=== PATIENT | female | born 1935 | race Caucasian/White ===

== ENCOUNTER → 2016-10-08 | Outpatient (REF) | payer MEDICARE ==
[2016-10-08 19:17] LABS: PERCENT SATURATION 19.5 % (13.2-37.4)
== END ==
LOC: M LAB REF 16:21
PROVIDERS: ATTEND Internal Medicine
DX: D50.9 Iron deficiency anemia, unspecified (principal)

== ENCOUNTER → 2017-03-08 | Outpatient (REF) | payer MEDICARE | LOC: M LAB REF 16:34 | PROVIDERS: ATTEND Internal Medicine | DX: R19.5 Other fecal abnormalities (principal) ==

== ENCOUNTER 2017-08-13 14:46 | Emergency (ER) | payer MEDICAID, MEDICARE ==
[~2017-08-13] VITALS: Ht 157.5 cm; Wt 63.6 kg
[2017-08-13] MEDS ORDERED: LEVO25TA5 (14:53)
[2017-08-13] MEDS ORDERED: AMLO5TAB2 (14:53)
[2017-08-13] MEDS ORDERED: ASPI81TA85 PO (14:53)
[2017-08-13] MEDS ORDERED: [UNRECOGNIZED DRUG - CODE] (14:53)
--- NOTE | 2017-08-13 15:33 | REP ---
Clinical: Trauma. Technique: AP, lateral, bilateral oblique and sunrise views of the right knee. Findings: Age-related osteopenia and tricompartmental degenerative changes are appreciated. No acute fracture or dislocation identified. Anterior and prepatellar soft tissue swelling likely related to trauma. Impression: Anterior/prepatellar soft tissue swelling. No acute fracture dislocation. Signed by Alexy Meadows MD 08/13/2017 03:24 P
[2017-08-13 18:13] VITALS: BP 164/80
== END 2017-08-13 18:14 | disposition home or self-care (01) ==
LOC: M ED 14:46
DX: S80.01XA Contusion of right knee, initial encounter (principal); W01.198A Fall on same level from slipping, tripping and stumbling with subsequent striking against other object, initial encounter; Y92.410 Unspecified street and highway as the place of occurrence of the external cause; Y93.01 Activity, walking, marching and hiking; Y99.9 Unspecified external cause status

== ENCOUNTER → 2017-10-15 | Outpatient (REF) | payer MEDICARE ==
[2017-10-15 14:05] LABS: IRON (FE) 57 UG/DL (50-170); PERCENT SATURATION 20.8 % (13.2-45.0); TOTAL IRON BINDING CAPACITY 274 UG/DL (250-450)
== END ==
LOC: M LAB REF 12:13
DX: D50.9 Iron deficiency anemia, unspecified (principal)
CPT/HCPCS: 83550

== ENCOUNTER → 2018-07-04 | Outpatient (REF) | payer MEDICARE ==
[2018-07-04 18:03] LABS: FERRITIN 25 NG/ML (8-252); IRON (FE) 48 UG/DL (50-170); PERCENT SATURATION 17.5 % (13.2-45.0); TOTAL IRON BINDING CAPACITY 275 UG/DL (250-450)
== END ==
LOC: M LAB REF 16:25
DX: D50.9 Iron deficiency anemia, unspecified (principal)
CPT/HCPCS: 83550

== ENCOUNTER 2018-09-17 10:32 | Emergency (ER) | payer MEDICARE ==
[~2018-09-17] VITALS: Ht 157.5 cm; Wt 57.0 kg
[~2018-09-17 10:32] MED LIST: AMLO5TAB6; ASPI81TA85 PO; LEVO25TA5; [UNRECOGNIZED DRUG - CODE]
[2018-09-17 11:10] VITALS: BP 170/78
== END 2018-09-17 11:29 | disposition home or self-care (01) ==
LOC: M ED 10:32
DX: J04.0 Acute laryngitis (principal); I10 Essential (primary) hypertension; E03.9 Hypothyroidism, unspecified; Z88.0 Allergy status to penicillin; Z79.899 Other long term (current) drug therapy; Z79.82 Long term (current) use of aspirin

== ENCOUNTER → 2018-12-09 | Outpatient (REF) | payer MEDICARE ==
[2018-12-09 18:44] LABS: PERCENT SATURATION 13.6 % (13.2-45.0)
== END ==
LOC: M LAB REF 16:38
PROVIDERS: ATTEND Internal Medicine
DX: D50.9 Iron deficiency anemia, unspecified (principal)

== ENCOUNTER → 2019-01-22 | Outpatient (REF) | payer MEDICARE ==
[2019-01-22 13:47] LABS: PERCENT SATURATION 21.2 % (13.2-45.0)
== END ==
LOC: M LAB REF 12:56
PROVIDERS: ATTEND Internal Medicine
DX: D50.9 Iron deficiency anemia, unspecified (principal)

== ENCOUNTER 2019-04-24 15:05 | Emergency (ER) | payer MEDICARE ==
[~2019-04-24] VITALS: Ht 157.5 cm; Wt 61.1 kg
[2019-04-24] MEDS ORDERED: LOSA100T50 (15:26)
[2019-04-24] MEDS ORDERED: BACT800T5 PO (17:20)
[2019-04-24 18:11] VITALS: BP 162/86
--- NOTE | 2019-04-25 09:59 | REP ---
LEFT FIRST TOE: Four views of the left first toe are performed. There is a nondisplaced fracture of the proximal aspect of the 1st proximal phalanx. No other acute fracture or dislocation is seen. Hallux valgus deformity is noted with mild joint space narrowing of the first metatarsophalangeal joint. IMPRESSION: Nondisplaced fracture of the 1st proximal phalanx. Electronically Signed by Francis Stanton MD 04/27/2019 11:40 A
[2019-06-12] MEDS ORDERED: BISO5TAB14 PO (10:43)
== END 2019-04-24 18:13 | disposition home or self-care (01) ==
LOC: M ED 15:05
DX: S92.415A Nondisplaced fracture of proximal phalanx of left great toe, initial encounter for closed fracture (principal); S90.422A Blister (nonthermal), left great toe, initial encounter; W01.190A Fall on same level from slipping, tripping and stumbling with subsequent striking against furniture, initial encounter; Y92.89 Other specified places as the place of occurrence of the external cause; I10 Essential (primary) hypertension; E03.9 Hypothyroidism, unspecified; Z79.899 Other long term (current) drug therapy; Z79.890 Hormone replacement therapy; Z88.0 Allergy status to penicillin

== ENCOUNTER → 2019-04-30 | Outpatient (REF) | payer MEDICARE ==
[~2019-04-30] MED LIST changes: +BACT800T5 PO; +LOSA100T50
[2019-04-30 17:33] LABS: C REACTIVE PROTEIN QUANTITATIV < 0.30 MG/DL (0.00-0.30); URIC ACID 2.9 MG/DL (2.6-6.0)
== END ==
LOC: M LAB REF 16:27
PROVIDERS: ATTEND Internal Medicine
DX: L03.032 Cellulitis of left toe (principal); S92.415A Nondisplaced fracture of proximal phalanx of left great toe, initial encounter for closed fracture; Y92.9 Unspecified place or not applicable; Y93.9 Activity, unspecified

== ENCOUNTER → 2019-06-04 | Outpatient (REF) | payer MEDICARE ==
[~2019-06-04] MED LIST changes: +BISO5TAB9 PO; +D3 22000 PO; +DOCU100C17 PO; +FERR325T16 PO
[2019-06-04 19:26] LABS: BASO # 0.1 10^3/uL (0.0-0.2); BASO % 0.7 % (0.0-1.0); EOS # 0.1 10^3/uL (0.0-0.5); EOS % 1.2 % (0.0-3.0); HEMATOCRIT 41.2 % (36.0-47.0); HEMOGLOBIN 12.8 g/dl (12.0-15.5); LYMPH # 1.4 10^3/uL (1.5-5.0); LYMPH % 16.5 % (24.0-44.0); MEAN CORPUSCULAR HEMOGLOBIN 24.7 pg (27.0-33.0); MEAN CORPUSCULAR HGB CONC 31.1 g/dl (32.0-36.5); MEAN CORPUSCULAR VOLUME 79.5 fl (80.0-96.0); MONO # 0.8 10^3/uL (0.0-0.8); MONO % 8.7 % (0.0-5.0); NEUTROPHILS # 6.3 10^3/uL (1.5-8.5); NEUTROPHILS % 72.7 % (36.0-66.0); PLATELET COUNT, AUTOMATED 258 10^3/uL (150-450); RED BLOOD COUNT 5.18 10^6/uL (4.00-5.40); WHITE BLOOD COUNT 8.7 10^3/uL (4.0-10.0)
[2019-06-04 20:26] LABS: ERYTHROCYTE SEDIMENTATION RATE 6 mm/hr (0-30)
== END ==
LOC: M LABDRAW1 13:06
DX: S92.415D Nondisplaced fracture of proximal phalanx of left great toe, subsequent encounter for fracture with routine healing (principal)

== ENCOUNTER 2019-06-12 10:27 | Emergency (ER) | payer MEDICARE ==
[~2019-06-12] VITALS: Ht 157.5 cm; Wt 61.0 kg
[~2019-06-12 10:27] MED LIST changes: -BISO5TAB9 PO; -D3 22000 PO; -DOCU100C17 PO; -FERR325T16 PO
[2019-06-12] MEDS ORDERED: BISO5TAB9 PO (10:43)
[2019-06-12] MEDS ORDERED: D3 22000 PO (10:43)
[2019-06-12] MEDS ORDERED: FERR325T16 PO (10:43)
[2019-06-12] MEDS ORDERED: DOCU100C17 PO (10:43)
[2019-06-12 11:14] LABS: BASO # 0.1 10^3/uL (0.0-0.2); BASO % 0.5 % (0.0-1.0); EOS # 0.1 10^3/uL (0.0-0.5); EOS % 0.5 % (0.0-3.0); HEMATOCRIT 39.7 % (36.0-47.0); HEMOGLOBIN 12.8 g/dl (12.0-15.5); LYMPH # 0.8 10^3/uL (1.5-5.0); MEAN CORPUSCULAR HEMOGLOBIN 25.4 pg (27.0-33.0); MEAN CORPUSCULAR HGB CONC 32.2 g/dl (32.0-36.5); MEAN CORPUSCULAR VOLUME 78.8 fl (80.0-96.0); MONO # 0.7 10^3/uL (0.0-0.8); MONO % 7.3 % (0.0-5.0); NEUTROPHILS # 8.2 10^3/uL (1.5-8.5); NEUTROPHILS % 83.4 % (36.0-66.0); PLATELET COUNT, AUTOMATED 229 10^3/uL (150-450); RED BLOOD COUNT 5.04 10^6/uL (4.00-5.40); WHITE BLOOD COUNT 9.8 10^3/uL (4.0-10.0)
[2019-06-12 11:46] LABS: BLOOD UREA NITROGEN 18 MG/DL (7-18); CALCIUM LEVEL 9.2 MG/DL (8.8-10.2); CARBON DIOXIDE LEVEL 28 MEQ/L (21-32); CHLORIDE LEVEL 104 MEQ/L (98-107); CK-MB VALUE MASS 5.9 NG/ML (<3.6); CPK CREATINE PHOSPHOKINASE 263 U/L (26-192); CREATININE FOR GFR 0.63 MG/DL (0.55-1.30); GLOMERULAR FILTRATION RATE > 60.0 (>32); GLUCOSE, FASTING 91 MG/DL (70-100); MB/CK RELATIVE INDEX 2.24 (< OR =4); POTASSIUM SERUM 3.9 MEQ/L (3.5-5.1); SODIUM LEVEL 138 MEQ/L (136-145); TROPONIN I < 0.02 NG/ML (< 0.10)
--- NOTE | 2019-06-12 11:49 | REP ---
CT of the brain without IV contrast: There are no comparisons. I suspect there is a small subdural hematoma superiorly anteriorly in the right frontal lobe, accompanied by a small intraparenchymal hemorrhage in the adjacent anterior superior right frontal lobe gyrus. There is no edema, mass effect or midline shift. There is no other hemorrhage. There is mild diffuse cortical atrophy. The cortical stripe is otherwise unremarkable. The visualized paranasal sinuses and mastoid air cells are clear. Impression: Small subdural hematoma in the anterior superior right frontal lobe accompanied by a small intraparenchymal hemorrhage of the adjacent anterior superior frontal lobe gyrus. Mild diffuse cortical atrophy. These findings could be confirmed by MRI if felt clinically indicated. Electronically Signed by Francis Leroy MD 06/12/2019 11:41 A
--- NOTE | 2019-06-12 12:01 | REP ---
CT STUDY OF THE CERVICAL SPINE WITHOUT CONTRAST: HISTORY: Trauma. TECHNIQUE: Helical scanning is acquired and overlapping 2 mm high resolution axial images were generated and reviewed at bone and soft tissue window settings. Coronal and sagittal multiplanar re-formations images are generated. CT FINDINGS: There is no evidence of cervical spine element fracture. No skull base fracture is seen. Cervical vertebral body heights are preserved. Alignment is normal. Facet joints are normally aligned bilaterally at each cervical level on multiplanar re-formations images. There is no evidence of intraspinal or paraspinal hematoma. No extra vertebral abnormality is seen. There is advanced osteoarthritic facet disease in the cervical spine at multiple levels, most pronounced on the right at C1-C2. There are moderate degenerative disc changes at multiple levels in the cervical spine. IMPRESSION: Degenerative spondylosis. Advanced osteoarthritic facet disease most pronounced on the right at C1-2. Otherwise negative CT study of the cervical spine without contrast. No fracture seen. Electronically Signed by Moises Devi MD 06/12/2019 01:21 P
--- NOTE | 2019-06-12 12:02 | REP ---
Maxillofacial CT study with IV contrast: History: Injury. Findings: There is soft-tissue swelling and contusion over the left malar soft tissues. Maxillary sinus is clear. The frontal, ethmoid, sphenoid and the right maxillary sinuses are clear as well. Orbital margins are intact. Zygomatic arches are intact. No facial fracture is appreciated. Nasal bone and inferior maxillary spine appear intact. No mandibular fracture is seen. Impression: Left malar soft tissue swelling. No facial fracture seen. Electronically Signed by Moises Devi MD 06/12/2019 01:27 P
[2019-06-12] MEDS ORDERED: LABETALOL HCL 100 MG/20 ML VIAL IV STA (12:26)
[2019-06-12] MEDS ORDERED: NS 1,000 ML IV SCH (12:28)
[2019-06-12 14:17] VITALS: BP 182/82
--- NOTE | 2019-06-12 20:08 | ECGEPIP ---
[facility] - ED Test Date: 2019-06-12 Pat Name: DEV FREEMAN Department: Room: - Gender: Female Electronic Service Technician: JVivian : 1935 Requested By: Gordon Mercado Order Number: [id number] Reading MD: Sherwin Eldridge Measurements Intervals [place] Rate: 63 P: 26 MO: 161 QRS: 12 QRSD: 101 T: 28 QT: 410 QTc: 422 Interpretive Statements SINUS RHYTHM MINIMAL VOLTAGE CRITERIA FOR LVH, CONSIDER NORMAL VARIANT NSTTW ABNORMALITIES NO PRIORS FOR COMPARISON Electronically Signed on 06-12-2019 20:07:48 EDT by Sherwin Eldridge
== END 2019-06-12 14:29 | disposition short-term general hospital (02) ==
LOC: EDBD 10:27 → EDSEX 10:27 → M ED 10:27
DX: S06.9X0A Unspecified intracranial injury without loss of consciousness, initial encounter (principal); W19.XXXA Unspecified fall, initial encounter; Y92.018 Other place in single-family (private) house as the place of occurrence of the external cause; I10 Essential (primary) hypertension; E07.9 Disorder of thyroid, unspecified; E78.9 Disorder of lipoprotein metabolism, unspecified; Z79.899 Other long term (current) drug therapy; Z79.890 Hormone replacement therapy; Z88.0 Allergy status to penicillin

== ENCOUNTER → 2019-06-15 | Outpatient (CLI) | payer MEDICARE ==
[~2019-06-15] MED LIST changes: +BISO5TAB9 PO; +D3 22000 PO; +DOCU100C17 PO; +FERR325T16 PO
--- NOTE | 2019-06-15 19:37 | REP ---
CT brain without contrast: History: Multiple falls. Status post head injury. Comparison head CT study June 12, 2019. CT findings: Digital preliminary pollution control technician radiograph is unremarkable. The bony calvarium is intact. No scalp hematoma or skull fracture is appreciated. Vascular calcifications again noted in the distal carotid arteries. No intraorbital abnormality is seen. The visualized paranasal sinuses are clear. There is moderate generalized atrophy again noted. Small vessel atherosclerotic changes are seen in the periventricular white matter of the supratentorial brain as before. There is no evidence of intracranial hemorrhage. No extra-axial fluid collection is seen. No mass or infarct is observed. Impression: No evidence of hemorrhage or extra-axial fluid collection. Diffuse atrophy and small vessel changes. Vascular calcification. No acute intracranial abnormality. Electronically Signed by Moises Devi MD 06/16/2019 09:35 A
== END ==
LOC: M RAD 15:10
PROVIDERS: ATTEND Internal Medicine
DX: R29.6 Repeated falls (principal); I67.2 Cerebral atherosclerosis; G31.9 Degenerative disease of nervous system, unspecified

== ENCOUNTER → 2019-12-29 | Outpatient (REF) | payer MEDICARE ==
[~2019-12-29] MED LIST changes: +BISO5TAB14 PO; -BISO5TAB9 PO
[2019-12-29 17:55] LABS: C REACTIVE PROTEIN QUANTITATIV < 0.30 MG/DL (0.00-0.30); FERRITIN 42 NG/ML (8-252); IRON (FE) 40 UG/DL (50-170); PERCENT SATURATION 15.2 % (13.2-45.0); TOTAL IRON BINDING CAPACITY 264 UG/DL (250-450)
== END ==
LOC: M LAB REF 17:16
PROVIDERS: ATTEND Internal Medicine
DX: D50.9 Iron deficiency anemia, unspecified (principal); L03.90 Cellulitis, unspecified

== ENCOUNTER 2020-03-22 06:09 | Inpatient (IN) | payer MEDICARE ==
[~2020-03-22] VITALS: Ht 157.5 cm; Wt 61.4 kg
[~2020-03-22 06:09] MED LIST changes: -LEVO25TA5; +LEVO25TA5 PO
[2020-03-22] MEDS ORDERED: OLME40TA PO (06:32)
[2020-03-22 07:55] LABS: BLOOD UREA NITROGEN 15 MG/DL (7-18); CALCIUM LEVEL 8.9 MG/DL (8.8-10.2); CARBON DIOXIDE LEVEL 28 MEQ/L (21-32); CHLORIDE LEVEL 108 MEQ/L (98-107); CREATININE FOR GFR 0.68 MG/DL (0.55-1.30); GLOMERULAR FILTRATION RATE > 60.0 (>32); GLUCOSE, FASTING 115 MG/DL (70-100); POTASSIUM SERUM 3.8 MEQ/L (3.5-5.1); SODIUM LEVEL 139 MEQ/L (136-145)
[2020-03-22 08:00] LABS: BASO # 0.1 10^3/uL (0.0-0.2); BASO % 0.4 % (0.0-1.0); EOS # 0.1 10^3/uL (0.0-0.5); EOS % 0.3 % (0.0-3.0); HEMATOCRIT 42.1 % (36.0-47.0); HEMOGLOBIN 13.2 g/dl (12.0-15.5); LYMPH # 1.3 10^3/uL (1.5-5.0); LYMPH % 6.9 % (24.0-44.0); MEAN CORPUSCULAR HEMOGLOBIN 24.7 pg (27.0-33.0); MEAN CORPUSCULAR HGB CONC 31.4 g/dl (32.0-36.5); MEAN CORPUSCULAR VOLUME 78.7 fl (80.0-96.0); MONO # 1.5 10^3/uL (0.0-0.8); MONO % 7.8 % (0.0-5.0); NEUTROPHILS # 15.9 10^3/uL (1.5-8.5); NEUTROPHILS % 83.9 % (36.0-66.0); PLATELET COUNT, AUTOMATED 319 10^3/uL (150-450); RED BLOOD COUNT 5.35 10^6/uL (4.00-5.40)
--- NOTE | 2020-03-22 08:25 | ECGEPIP ---
[facility] - ED Test Date: 2020-03-22 Pat Name: DEV FREEMAN Department: Room: - Gender: Female Chief Investment Officer: brandy ren : 1935 Requested By: MIGUEL Cortés PA-C Order Number: [id number] Reading MD: Sherwin Eldridge Measurements Intervals [place] Rate: 75 P: -15 TN: 122 QRS: 20 QRSD: 97 T: 28 QT: 388 QTc: 435 Interpretive Statements SINUS RHYTHM NSTTW ABNORMALITIES SIMILAR TO 06/12/19 Electronically Signed on 03-22-2020 8:25:31 EDT by Sherwin Eldridge
[2020-03-22] MEDS: amLODIPine 5 MG TAB PO SCH (09:00)
[2020-03-22] MEDS: bisoproloL fumarate 5 MG TAB PO SCH (09:00)
[2020-03-22] MEDS: OLMESARTAN MEDOXOMIL 20 MG TAB (BENICAR) PO SCH (09:00)
[2020-03-22 10:39] LABS: CK-MB VALUE MASS 1.9 NG/ML (<3.6); CPK CREATINE PHOSPHOKINASE 82 U/L (26-192); FREE THYROXINE INDEX 3.2 % (1.3-4.8); MB/CK RELATIVE INDEX 2.32 (< OR =4); T UPTAKE 35 % (30-39); THYROXINE (T4) 9.1 UG/DL (4.5-12.0); TROPONIN I < 0.02 NG/ML (< 0.10)
[2020-03-22 10:55] VITALS: BP 119/69
--- NOTE | 2020-03-22 11:00 | REP ---
REASON: History of hip fracture. The latest prior for comparison is 01/31/2015. The lung frazier are markedly hypoexpanded. The interstitial markings are increased. Left lower lobe patchy opacities cannot be ruled out on this limited exam. The pleural angles are sharp. The heart is borderline. Chronic changes are seen involving the imaged osseous structures. IMPRESSION: Limited exam with technique as described above. Left lower lobe opacities cannot be ruled out. PA and lateral views of the chest are recommended. Electronically Signed by Piyush Khan DO 03/22/2020 05:22 P
[2020-03-22] MEDS ORDERED: NS 1,000 ML IV SCH (11:11)
--- NOTE | 2020-03-22 11:19 | REP ---
REASON: Trauma. There is a comminuted fracture involving the proximal right femur with a predominant intertrochanteric component. Degenerative change is seen involving each hip and sacroiliac joint. Degenerative change is seen involving the imaged portion of the spine. Two views of the right hip were also obtained with AP pelvic. The two views of the right hip show the previously described proximal femoral fracture again. No additional fractures are identified. Electronically Signed by Piyush Khan DO 03/22/2020 05:23 P
--- NOTE | 2020-03-22 11:33 | HPEPDOC ---
[facility] Medical History & Physical Date of Admission Mar 22, 2020 Date of Service: Mar 22, 2020 History and Physical CHIEF COMPLAINT: left pain s/p mechanical fall HISTORY OF PRESENT ILLNESS: 85 yo female was in her usual state of health, when she tripped this morning and fell. She denies any associated symptoms with her fall. Denied chest pain, shortness of breath, dizziness, headaches, light headedness. After her fall she was experiencing pain, prompting her to present to the ED. She was found to have a hip fracture. PAST MEDICAL HISTORY: 1. HTN 2. Hypothyroidism 3. chronic venous stasis ulcer - Dr. Ramirez ALLERGIES: Please see below. REVIEW OF SYSTEMS: Negative except as per HPI. HOME MEDICATIONS: Please see below. PHYSICAL EXAMINATION: VITAL SIGNS: See below General: NAD, lying comfortably in bed, elderly HEENT: NC/AT, EOMI Lungs: CTA B/L Heart: +S1S2, RRR, no M/R/G Abd: soft, NT, +BS Ext: no edema, bandages on left lower extremity LABORATORY DATA: See below. MICROBIOLOGY: Please see below. ASSESSMENT: 85 yo female for hip fracture after mechanical fall, PMHx HTN, hypothyroid, chronic venous stasis ulcer. #Right Hip Fx - ortho c/s pending - likely surgical intervention - medically optimized for surgery - NPO/IVF, pain control #HTN - continue home meds with hold parameters #hypothyroidism - check thyroid profile #chronic venous stasis ulcer - follows with dr ramirez - continue with dressing changes as previous #possible left lower lobe opacities - on portable CXR - unable to obtain 2 view - patient is not SOB, no cough, no fever - incentive spirometry #DVT prophylaxis - mechanical pre-op - post-op as per ortho Dispo: Patient has never had any anginal symptoms or shortness of breath. Her limiting factor for exertion is her leg pain from her stasis ulcer. ECG reviewed, no acute findings. Card markers WNL, no cardiac murmurs on examination, no signs/symptoms of CHF. Scores 0 points using RCRI, with 3.9% risk of 30 day , NV, cardiac arrest. Patient is medically optimized for surgical intervention. Vital Signs Vital Signs Date Time Temp Pulse Resp B/P (MAP) Pulse Ox O2 Delivery O2 Flow Rate FiO2 03/22/20 10:55 98.4 93 16 119/69 (86) 95 Room Air Laboratory Data Labs 24H Laboratory Tests 2 03/22/20 07:19: Immature Granulocyte % (Auto) 0.7, Neutrophils (%) (Auto) 83.9H, Lymphocytes (%) (Auto) 6.9L, Monocytes (%) (Auto) 7.8H, Eosinophils (%) (Auto) 0.3, Basophils (%) (Auto) 0.4, Neutrophils # (Auto) 15.9H, Lymphocytes # (Auto) 1.3L, Monocytes # (Auto) 1.5H, Eosinophils # (Auto) 0.1, Basophils # (Auto) 0.1, Nucleated Red Blood Cells % (auto) 0.0, Anion Gap 3L, Glomerular Filtration Rate > 60.0, Calcium Level 8.9, Total Creatine Kinase 82, Creatine Kinase MB 1.9, Creatine Kinase MB Relative Index 2.32, Troponin I < 0.02, Thyroid Stimulating Hormone (TSH) 3.400, Free Thyroxine Index 3.2, Thyroxine (T4) 9.1, Triiodothyronine (T3) Uptake 35 CBC/BMP Laboratory Tests 03/22/20 07:19 Home Medications Scheduled Bisoprolol Fumarate (Bisoprolol Fumarate) 5 Mg Tablet, 1 TAB PO DAILY Cholecalciferol (Vitamin D3) (Vitamin D3) 2,000 Unit Tablet, 1 TAB PO DAILY Docusate Sodium (Docusate Sodium) 100 Mg Capsule, 100 MG PO DAILY for constipation Ferrous Gluconate (Ferrous Gluconate) 324 Mg Tablet, 324 MG PO DAILY for iron Levothyroxine Sodium (Levothyroxine Sodium) 25 Mcg Tab, 25 MCG PO QAM Olmesartan Medoxomil (Olmesartan Medoxomil) 40 Mg Tablet, 40 MG PO DAILY Miscellaneous Medications Amlodipine Besylate (Amlodipine Besylate) 5 Mg Tab Allergies Coded Allergies: Penicillins (Verified Allergy, Unknown, unknown, 04/24/19) A-FIB/CHADSVASC A-FIB History Current/History of A-Fib/PAF?: No LIZ MCKEON MD Mar 22, 2020 11:33
[2020-03-22] MEDS: FERROUS GLUCONATE 324 MG TAB PO SCH (11:55)
[2020-03-22] MEDS: DOCUSATE SODIUM 100 MG CAP PO SCH (11:55)
[2020-03-22] MEDS: LEVOTHYROXINE 25MCG TABLET (0.025MG) PO SCH (11:55)
[2020-03-22] MEDS ORDERED: CLINDAMYCIN 900 MG in IV 1 EA IV ONE (13:45)
[2020-03-22 15:02] VITALS: BP 129/59
[2020-03-22] MEDS: MORPHINE 2 MG/ML 1ML VIAL (J2270) IV PRN (18:24)
--- NOTE | 2020-03-22 18:56 | CR ---
DATE OF CONSULTATION: 03/22/2020 CHIEF COMPLAINT: Fall. HISTORY OF PRESENT ILLNESS: Mrs. Morrison was in her usual state of health when she fell in her home this morning. She was brought to the emergency room where x-rays were taken; it was discovered that she had a comminuted intertrochanteric right hip fracture. Orthopedics was consulted. Of note, the patient does complain that she is experiencing bright red blood per rectum. Additionally, she lets me know she has a venous stasis ulcer on her left ankle. PAST MEDICAL HISTORY: Reviewed. Pertinent positives and negatives are noted. PHYSICAL EXAM: Revealed a well-developed, well-nourished, in no acute distress, alert female lying in the hospital bed. She had ice in place over the right hip. She was alert and oriented times three. Normocephalic, atraumatic. Lungs were clear to auscultation without rales or wheeze. Heart: Regular rate and rhythm. Bowel sounds were present. Inspection of the right lower extremity revealed a small abrasion with contusion over the right patella, otherwise the skin was intact. She is tender to palpation over the right hip and has pain with internal, external rotation, which are both limited. The limb is neurovascularly intact. She has intact sensation to light touch through the foot and palpable distal pulses. IMAGES; See the medical record. They do display a comminuted intertrochanteric right hip fracture. IMPRESSION: Right hip comminuted intertrochanteric fracture. PLAN: Plan will be to see if we can get medical clearance for Mrs. Prince perry to have transfemoral nail placed by Dr. Mendoza in the operating room (OR). She is nothing by mouth. Will need thromboembolism deterrents (TEDs) and sequentials preoperatively. Please see the record for further details.
[2020-03-22] MEDS: ACETAMINOPHEN 650MG ER TAB (TYLENOL ARTHRITIS) PO SCH ×2 (21:39→21:48)
[2020-03-22] MEDS: LIDOCAINE 5% (LIDODERM) PATCH TD SCH (21:40)
[2020-03-22 22:00] VITALS: BP 125/54
[2020-03-23] MEDS: MORPHINE 2 MG/ML 1ML VIAL (J2270) IV PRN ×2 (02:16→09:44)
[2020-03-23] MEDS: ACETAMINOPHEN 650MG ER TAB (TYLENOL ARTHRITIS) PO SCH (05:26)
[2020-03-23] MEDS: LEVOTHYROXINE 25MCG TABLET (0.025MG) PO SCH (05:26)
[2020-03-23 06:00] VITALS: BP 131/59
[2020-03-23 07:10] LABS: HEMATOCRIT 33.7 % (36.0-47.0); MEAN CORPUSCULAR HEMOGLOBIN 24.5 pg (27.0-33.0); MEAN CORPUSCULAR HGB CONC 30.9 g/dl (32.0-36.5); MEAN CORPUSCULAR VOLUME 79.5 fl (80.0-96.0); RED BLOOD COUNT 4.24 10^6/uL (4.00-5.40); WHITE BLOOD COUNT 9.5 10^3/uL (4.0-10.0)
[2020-03-23 07:23] LABS: HEMOGLOBIN 10.4 g/dl (12.0-15.5)
[2020-03-23 07:24] LABS: PLATELET COUNT, AUTOMATED 203 10^3/uL (150-450)
[2020-03-23 07:36] LABS: BLOOD UREA NITROGEN 16 MG/DL (7-18); CALCIUM LEVEL 8.1 MG/DL (8.8-10.2); CARBON DIOXIDE LEVEL 29 MEQ/L (21-32); CHLORIDE LEVEL 107 MEQ/L (98-107); CREATININE FOR GFR 0.56 MG/DL (0.55-1.30); GLOMERULAR FILTRATION RATE > 60.0 (>32); GLUCOSE, FASTING 92 MG/DL (70-100); POTASSIUM SERUM 4.1 MEQ/L (3.5-5.1); SODIUM LEVEL 140 MEQ/L (136-145)
[2020-03-23] MEDS ORDERED: CLINDAMYCIN 900 MG in IV 1 EA IV ONE (08:00)
[2020-03-23] MEDS: FERROUS GLUCONATE 324 MG TAB PO SCH (09:00)
[2020-03-23] MEDS: DOCUSATE SODIUM 100 MG CAP PO SCH (09:00)
[2020-03-23] MEDS: OLMESARTAN MEDOXOMIL 20 MG TAB (BENICAR) PO SCH (09:00)
[2020-03-23] MEDS: bisoproloL fumarate 5 MG TAB PO SCH (09:00)
[2020-03-23] MEDS: amLODIPine 5 MG TAB PO SCH (09:00)
[2020-03-23 09:29] VITALS: BP 128/79
[2020-03-23] MEDS: **NOTE PATIENT COMMENT** MISC XX SCH (09:46)
[2020-03-23] MEDS ORDERED: MIDAZOLAM INJ 2MG/2ML VIAL (J2250 PER 1MG) As Ordered ONE (10:08)
[2020-03-23] MEDS ORDERED: KETAMINE HCL 200 MG/20 ML VIAL As Ordered ONE (10:08)
--- NOTE | 2020-03-23 11:05 | IPNPDOC ---
Text Note Date of Service The patient was seen on 03/23/20. NOTE Subjective: Patient seen and examined at bedside. No acute overnight events reported. Patient's pain well controlled. No new medical complaints. Objective: VITAL SIGNS: See below General: NAD, lying comfortably in bed, elderly HEENT: NC/AT, EOMI Lungs: CTA B/L Heart: +S1S2, RRR, no M/R/G Abd: soft, NT, +BS Ext: no edema, bandages on left lower extremity LABORATORY DATA: See below. MICROBIOLOGY: Please see below. ASSESSMENT: 85 yo female for hip fracture after mechanical fall, PMHx HTN, hypothyroid, chronic venous stasis ulcer. #Right Hip Fx - ortho c/s pending - pending surgical intervention - medically optimized for surgery - NPO/IVF, pain control #HTN - continue home meds with hold parameters #hypothyroidism - check thyroid profile #chronic venous stasis ulcer - follows with dr ramirez - continue with dressing changes as previous #possible left lower lobe opacities - on portable CXR - unable to obtain 2 view - patient is not SOB, no cough, no fever - continue to follow clinically - incentive spirometry #DVT prophylaxis - mechanical pre-op - post-op as per ortho Dispo: Pending OR today VS,Fishbone, I+O VS, Fishbone, I+O Laboratory Tests 03/23/20 06:27 Vital Signs Date Time Temp Pulse Resp B/P (MAP) Pulse Ox O2 Delivery O2 Flow Rate FiO2 03/23/20 09:54 18 Room Air 03/23/20 09:29 88 128/79 (95) 03/23/20 06:00 98.6 98 I&O- Last 24 Hours up to 6 AM 03/23/20 05:59 Intake Total 300 ml Output Total 0 ml Balance 300 ml LIZ MCKEON MD Mar 23, 2020 11:05
[2020-03-23 11:30] VITALS: BP 140/72
[2020-03-23] MEDS ORDERED: ceFAZolin 1GM VIAL (J0690 PER 500MG) As Ordered ONE (11:48)
[2020-03-23] MEDS ORDERED: BUPIVACAINE/EPIN 0.25% 30 ML VIAL As Ordered ONE (11:48)
[2020-03-23] MEDS ORDERED: CLINDAMYCIN 600 MG/50 ML PREMIX BAG As Ordered ONE ×2 (11:57→13:31)
[2020-03-23] MEDS ORDERED: CLINDAMYCIN INJ 900MG/6ML VIAL As Ordered ONE (12:00)
[2020-03-23] MEDS ORDERED: propofoL 500 MG/50 ML VIAL As Ordered ONE (12:06)
[2020-03-23] MEDS ORDERED: ONDANSETRON 4MG/2ML VIAL As Ordered ONE (12:09)
[2020-03-23] MEDS ORDERED: LIDOCAINE 2% 100MG/5ML SDV (FOR ANES.) As Ordered ONE (12:10)
[2020-03-23] MEDS ORDERED: ACETAMINOPHEN 1000MG 100ML IV BTL (OFIRMEV) (J0131 PER 10MG) As Ordered ONE (13:38)
[2020-03-23] MEDS ORDERED: ePHEDrine SULFATE 25 MG/5 ML(5MG/ML) SYRINGE As Ordered ONE (13:52)
[2020-03-23] MEDS ORDERED: PHENYLephrine HCL 500 MCG/5 ML (100MCG/ML) SYRINGE (J2370) As Ordered ONE (13:52)
[2020-03-23] MEDS ORDERED: fentaNYL 100 MCG/2 ML INJECTION (J3010) IV PRN (14:45)
[2020-03-23] MEDS ORDERED: PERCOCET 5MG/325MG TAB PO PRN (14:45)
[2020-03-23] MEDS ORDERED: MORPHINE 2 MG/ML 1ML VIAL (J2270) IV PRN (14:45)
[2020-03-23] MEDS ORDERED: ONDANSETRON 4MG/2ML VIAL IV PRN ×2 (14:45)
[2020-03-23] MEDS ORDERED: LR 1,000 ML IV SCH (14:45)
[2020-03-23] MEDS ORDERED: METOCLOPRAMIDE INJ 10MG/2ML VIAL (J2765 PER 1) IV PRN (14:45)
[2020-03-23 15:15] VITALS: BP 122/51
[2020-03-23 16:45] VITALS: BP 117/49
[2020-03-23] MEDS: D5W/LR 1,000 ML IV SCH (18:19)
[2020-03-23] MEDS: PERCOCET 5MG/325MG TAB PO PRN (18:20)
[2020-03-23] MEDS ORDERED: CLINDAMYCIN 600 MG in IV 1 EA IV ONE (19:00)
[2020-03-23] MEDS: LIDOCAINE 5% (LIDODERM) PATCH TD SCH (20:00)
[2020-03-23] MEDS: ASPIRIN 81 MG ENTERIC TAB PO SCH (20:00)
[2020-03-23 22:00] VITALS: BP 132/67
[2020-03-24 02:00] VITALS: BP 134/68
[2020-03-24] MEDS: PERCOCET 5MG/325MG TAB PO PRN (02:38)
[2020-03-24] MEDS: D5W/LR 1,000 ML IV SCH ×2 (02:50→19:17)
[2020-03-24] MEDS: LEVOTHYROXINE 25MCG TABLET (0.025MG) PO SCH (05:51)
[2020-03-24 06:00] VITALS: BP 132/67
--- NOTE | 2020-03-24 06:47 | REP ---
C-ARM VIEWS RIGHT FEMUR: Multiple C-arm views right femur performed during placement of internal fixation. Intertrochanteric fracture is noted. Osseous structures appear well aligned. 61 seconds fluoroscopy time utilized. Electronically Signed by Francis Stanton MD 03/27/2020 10:08 P
[2020-03-24 06:58] LABS: HEMATOCRIT 30.3 % (36.0-47.0); HEMOGLOBIN 9.6 g/dl (12.0-15.5); MEAN CORPUSCULAR HEMOGLOBIN 25.1 pg (27.0-33.0); MEAN CORPUSCULAR HGB CONC 31.7 g/dl (32.0-36.5); MEAN CORPUSCULAR VOLUME 79.3 fl (80.0-96.0); PLATELET COUNT, AUTOMATED 173 10^3/uL (150-450); RED BLOOD COUNT 3.82 10^6/uL (4.00-5.40)
[2020-03-24 07:31] LABS: BLOOD UREA NITROGEN 15 MG/DL (7-18); CALCIUM LEVEL 8.1 MG/DL (8.8-10.2); CARBON DIOXIDE LEVEL 26 MEQ/L (21-32); CHLORIDE LEVEL 105 MEQ/L (98-107); CREATININE FOR GFR 0.59 MG/DL (0.55-1.30); GLOMERULAR FILTRATION RATE > 60.0 (>32); GLUCOSE, FASTING 118 MG/DL (70-100); POTASSIUM SERUM 3.9 MEQ/L (3.5-5.1); SODIUM LEVEL 138 MEQ/L (136-145)
[2020-03-24] MEDS: DOCUSATE SODIUM 100 MG CAP PO SCH (08:18)
[2020-03-24] MEDS: ASPIRIN 81 MG ENTERIC TAB PO SCH ×2 (08:18→20:37)
[2020-03-24] MEDS: OLMESARTAN MEDOXOMIL 20 MG TAB (BENICAR) PO SCH (08:18)
[2020-03-24] MEDS: FERROUS GLUCONATE 324 MG TAB PO SCH (08:19)
[2020-03-24] MEDS: METAMUCIL (PSYLLIUM) PACKET PO SCH (08:20)
[2020-03-24] MEDS: bisoproloL fumarate 5 MG TAB PO SCH (08:21)
[2020-03-24] MEDS: **NOTE PATIENT COMMENT** MISC XX SCH (08:21)
[2020-03-24] MEDS: MIRALAX *UNIT DOSE* 17GM PACKET PO SCH (08:21)
[2020-03-24] MEDS: amLODIPine 5 MG TAB PO SCH (08:21)
[2020-03-24 10:00] VITALS: BP 100/49
--- NOTE | 2020-03-24 11:10 | IPNPDOC ---
Text Note Date of Service The patient was seen on 03/24/20. NOTE Subjective: Patient seen and examined at bedside. No acute overnight events reported. Patient's pain well controlled. No new medical complaints. Objective: VITAL SIGNS: See below General: NAD, lying comfortably in bed, elderly HEENT: NC/AT, EOMI Lungs: CTA B/L Heart: +S1S2, RRR, no M/R/G Abd: soft, NT, +BS Ext: no edema, bandages on left lower extremity LABORATORY DATA: See below. MICROBIOLOGY: Please see below. ASSESSMENT: 85 yo female for hip fracture after mechanical fall, PMHx HTN, hypothyroid, chronic venous stasis ulcer. #Right Hip Fx - POD #1 - f/u as per ortho #HTN - continue home meds with hold parameters #hypothyroidism - continue oral supplementation #chronic venous stasis ulcer - follows with dr ramirez - continue with dressing changes as previous #possible left lower lobe opacities - on portable CXR - unable to obtain 2 view - patient is not SOB, no cough, no fever - continue to follow clinically - incentive spirometry #DVT prophylaxis - as per ortho Dispo: Pending PT haroon reis f/u VS,Fishbone, I+O VS, Fishbone, I+O Laboratory Tests 03/24/20 06:35 Vital Signs Date Time Temp Pulse Resp B/P (MAP) Pulse Ox O2 Delivery O2 Flow Rate FiO2 03/24/20 08:18 132/67 03/24/20 06:00 98.7 71 17 98 03/23/20 18:50 Room Air I&O- Last 24 Hours up to 6 AM 03/24/20 06:00 Intake Total 2765 ml Output Total 400 ml Balance 2365 ml LIZ MCKEON MD Mar 24, 2020 11:10
[2020-03-24 14:00] VITALS: BP 115/57
[2020-03-24] MEDS: LIDOCAINE 5% (LIDODERM) PATCH TD SCH (20:37)
[2020-03-24] MEDS: ACETAMINOPHEN TAB 650MG DOSE (2X325MG) PO PRN (20:37)
[2020-03-24 22:00] VITALS: BP 124/56
[2020-03-25 05:36] VITALS: BP 104/61
[2020-03-25] MEDS: LEVOTHYROXINE 25MCG TABLET (0.025MG) PO SCH (05:36)
[2020-03-25 07:11] LABS: BASO % 0.4 % (0.0-1.0); EOS # 0.2 10^3/uL (0.0-0.5); EOS % 2.2 % (0.0-3.0); HEMATOCRIT 28.2 % (36.0-47.0); LYMPH # 1.1 10^3/uL (1.5-5.0); LYMPH % 10.5 % (24.0-44.0); MEAN CORPUSCULAR HEMOGLOBIN 25.1 pg (27.0-33.0); MEAN CORPUSCULAR HGB CONC 31.9 g/dl (32.0-36.5); MEAN CORPUSCULAR VOLUME 78.8 fl (80.0-96.0); MONO # 1.2 10^3/uL (0.0-0.8); MONO % 11.1 % (0.0-5.0); NEUTROPHILS # 7.8 10^3/uL (1.5-8.5); NEUTROPHILS % 75.1 % (36.0-66.0); PLATELET COUNT, AUTOMATED 171 10^3/uL (150-450); RED BLOOD COUNT 3.58 10^6/uL (4.00-5.40); WHITE BLOOD COUNT 10.3 10^3/uL (4.0-10.0)
[2020-03-25] MEDS: D5W/LR 1,000 ML IV SCH (08:56)
[2020-03-25] MEDS: bisoproloL fumarate 5 MG TAB PO SCH (08:56)
[2020-03-25] MEDS: amLODIPine 5 MG TAB PO SCH (08:56)
[2020-03-25] MEDS: ASPIRIN 81 MG ENTERIC TAB PO SCH ×2 (09:03→20:28)
[2020-03-25] MEDS: FERROUS GLUCONATE 324 MG TAB PO SCH (09:03)
[2020-03-25] MEDS: OLMESARTAN MEDOXOMIL 20 MG TAB (BENICAR) PO SCH (09:04)
[2020-03-25] MEDS: DOCUSATE SODIUM 100 MG CAP PO SCH (09:04)
[2020-03-25] MEDS: **NOTE PATIENT COMMENT** MISC XX SCH (09:17)
[2020-03-25] MEDS: MIRALAX *UNIT DOSE* 17GM PACKET PO SCH (09:17)
[2020-03-25] MEDS: METAMUCIL (PSYLLIUM) PACKET PO SCH (09:17)
--- NOTE | 2020-03-25 10:40 | IPNPDOC ---
Text Note Date of Service The patient was seen on 03/25/20. NOTE Subjective: Patient seen and examined at bedside. No acute overnight events reported. No new medical complaints. Objective: VITAL SIGNS: See below General: NAD, lying comfortably in bed, elderly HEENT: NC/AT, EOMI Lungs: CTA B/L Heart: +S1S2, RRR, no M/R/G Abd: soft, NT, +BS Ext: no edema LABORATORY DATA: See below. MICROBIOLOGY: Please see below. ASSESSMENT: 85 yo female for hip fracture after mechanical fall, PMHx HTN, hypothyroid, chronic venous stasis ulcer. #Right Hip Fx - POD #2 - f/u as per ortho #HTN - continue home meds with hold parameters #hypothyroidism - continue oral supplementation #chronic venous stasis ulcer - follows with dr ramirez - continue with dressing changes as previous #possible left lower lobe opacities - on portable CXR - unable to obtain 2 view - patient is not SOB, no cough, no fever - continue to follow clinically - incentive spirometry #DVT prophylaxis - as per ortho Dispo: Pending PT haroon reis f/u VS,Hemal, I+O VS, Hemal, I+O Laboratory Tests 03/25/20 06:41 Vital Signs Date Time Temp Pulse Resp B/P (MAP) Pulse Ox O2 Delivery O2 Flow Rate FiO2 03/25/20 09:04 104/61 03/25/20 08:56 91 03/25/20 05:36 97.4 17 95 Room Air I&O- Last 24 Hours up to 6 AM 03/25/20 06:00 Intake Total 650 ml Output Total 2700 ml Balance -0 ml LIZ MCKEON MD Mar 25, 2020 10:40
[2020-03-25 14:00] VITALS: BP_SYST 130; BP_SYST 98; BP_DIAS 62; BP_DIAS 65
[2020-03-25] MEDS: LIDOCAINE 5% (LIDODERM) PATCH TD SCH (20:28)
[2020-03-26] MEDS: LEVOTHYROXINE 25MCG TABLET (0.025MG) PO SCH (05:56)
[2020-03-26 05:59] VITALS: BP 111/65
[2020-03-26] MEDS: OLMESARTAN MEDOXOMIL 20 MG TAB (BENICAR) PO SCH (08:43)
[2020-03-26] MEDS: DOCUSATE SODIUM 100 MG CAP PO SCH (08:43)
[2020-03-26] MEDS: amLODIPine 5 MG TAB PO SCH (08:44)
[2020-03-26] MEDS: ACETAMINOPHEN TAB 650MG DOSE (2X325MG) PO PRN (08:44)
[2020-03-26] MEDS: FERROUS GLUCONATE 324 MG TAB PO SCH (08:44)
[2020-03-26] MEDS: ASPIRIN 81 MG ENTERIC TAB PO SCH ×2 (08:44→20:16)
[2020-03-26] MEDS: bisoproloL fumarate 5 MG TAB PO SCH (08:46)
[2020-03-26] MEDS: METAMUCIL (PSYLLIUM) PACKET PO SCH (08:47)
[2020-03-26] MEDS: **NOTE PATIENT COMMENT** MISC XX SCH (08:47)
[2020-03-26] MEDS: MIRALAX *UNIT DOSE* 17GM PACKET PO SCH (08:47)
--- NOTE | 2020-03-26 09:17 | IPNPDOC ---
Text Note Date of Service The patient was seen on 03/26/20. NOTE Subjective: Patient seen and examined at bedside. No acute overnight events reported. No new medical complaints. Objective: VITAL SIGNS: See below General: NAD, sitting comfortably in chair HEENT: NC/AT, EOMI Lungs: CTA B/L Heart: +S1S2, RRR, no M/R/G Abd: soft, NT, +BS Ext: no edema LABORATORY DATA: See below. MICROBIOLOGY: Please see below. ASSESSMENT: 85 yo female for hip fracture after mechanical fall, PMHx HTN, hypothyroid, chronic venous stasis ulcer. #Right Hip Fx - POD #3 - f/u as per ortho #HTN - continue home meds with hold parameters #hypothyroidism - continue oral supplementation #chronic venous stasis ulcer - follows with dr ramirez - continue with dressing changes as previous #possible left lower lobe opacities - on portable CXR - unable to obtain 2 view - patient is not SOB, no cough, no fever - continue to follow clinically - incentive spirometry #DVT prophylaxis - as per ortho Dispo: Pending PT haroon reis f/u VS,Hemal, I+O VS, Jerrybone, I+O Vital Signs Date Time Temp Pulse Resp B/P (MAP) Pulse Ox O2 Delivery O2 Flow Rate FiO2 03/26/20 08:46 103 117/68 03/26/20 05:59 98.1 18 93 Room Air I&O- Last 24 Hours up to 6 AM 03/26/20 05:59 Intake Total 1630 ml Output Total 600 ml Balance 1030 ml LIZ MCKEON MD Mar 26, 2020 09:17
[2020-03-26 14:00] VITALS: BP 121/53
[2020-03-26 20:00] VITALS: BP 163/54
[2020-03-26] MEDS: LIDOCAINE 5% (LIDODERM) PATCH TD SCH (20:16)
[2020-03-27] MEDS: LEVOTHYROXINE 25MCG TABLET (0.025MG) PO SCH (05:32)
[2020-03-27 06:17] VITALS: BP 160/59
[2020-03-27 08:02] LABS: HEMATOCRIT 28.6 % (36.0-47.0); MEAN CORPUSCULAR HEMOGLOBIN 24.7 pg (27.0-33.0); MEAN CORPUSCULAR HGB CONC 31.5 g/dl (32.0-36.5); MEAN CORPUSCULAR VOLUME 78.6 fl (80.0-96.0); PLATELET COUNT, AUTOMATED 231 10^3/uL (150-450); RED BLOOD COUNT 3.64 10^6/uL (4.00-5.40); WHITE BLOOD COUNT 8.2 10^3/uL (4.0-10.0)
[2020-03-27] MEDS: MIRALAX *UNIT DOSE* 17GM PACKET PO SCH (08:42)
[2020-03-27] MEDS: ASPIRIN 81 MG ENTERIC TAB PO SCH ×2 (08:42→20:05)
[2020-03-27] MEDS: FERROUS GLUCONATE 324 MG TAB PO SCH (08:42)
[2020-03-27] MEDS: METAMUCIL (PSYLLIUM) PACKET PO SCH (08:42)
[2020-03-27] MEDS: OLMESARTAN MEDOXOMIL 20 MG TAB (BENICAR) PO SCH (08:43)
[2020-03-27] MEDS: DOCUSATE SODIUM 100 MG CAP PO SCH (08:43)
[2020-03-27] MEDS: bisoproloL fumarate 5 MG TAB PO SCH (08:44)
[2020-03-27] MEDS: **NOTE PATIENT COMMENT** MISC XX SCH (08:44)
[2020-03-27] MEDS: amLODIPine 5 MG TAB PO SCH (08:44)
--- NOTE | 2020-03-27 09:39 | IPNPDOC ---
Text Note Date of Service The patient was seen on 03/27/20. NOTE Subjective: Patient seen and examined at bedside. No acute overnight events reported. No new medical complaints. Objective: VITAL SIGNS: See below General: NAD, lying comfortably in bed, in good spirits HEENT: NC/AT, EOMI Lungs: CTA B/L Heart: +S1S2, RRR, no M/R/G Abd: soft, NT, +BS Ext: no edema LABORATORY DATA: See below. MICROBIOLOGY: Please see below. ASSESSMENT: 85 yo female for hip fracture after mechanical fall, PMHx HTN, hypothyroid, chronic venous stasis ulcer. #Right Hip Fx - POD #4 - f/u as per ortho #HTN - continue home meds with hold parameters #hypothyroidism - continue oral supplementation #chronic venous stasis ulcer - follows with dr ramirez - continue with dressing changes as previous #possible left lower lobe opacities - on portable CXR - patient is not SOB, no cough, no fever - continue to follow clinically - incentive spirometry #DVT prophylaxis - as per ortho Dispo: Pending PT haroon reis f/u VS,Hemal, I+O VS, Hemal, I+O Laboratory Tests 03/27/20 07:38 Vital Signs Date Time Temp Pulse Resp B/P (MAP) Pulse Ox O2 Delivery O2 Flow Rate FiO2 03/27/20 08:44 90 153/59 03/27/20 06:17 99.2 20 97 Room Air I&O- Last 24 Hours up to 6 AM 03/27/20 06:00 Intake Total 2180 ml Output Total 0 ml Balance 2180 ml LIZ MCKEON MD Mar 27, 2020 09:39
[2020-03-27 14:00] VITALS: BP 113/60
[2020-03-27] MEDS: LIDOCAINE 5% (LIDODERM) PATCH TD SCH (20:05)
[2020-03-27] MEDS ORDERED: SENOKOT S TAB PO SCH (21:00)
[2020-03-28 05:14] VITALS: BP 147/58
[2020-03-28] MEDS: LEVOTHYROXINE 25MCG TABLET (0.025MG) PO SCH (06:07)
[2020-03-28 06:43] LABS: BLOOD UREA NITROGEN 14 MG/DL (7-18); CALCIUM LEVEL 7.8 MG/DL (8.8-10.2); CARBON DIOXIDE LEVEL 28 MEQ/L (21-32); CHLORIDE LEVEL 106 MEQ/L (98-107); CREATININE FOR GFR 0.43 MG/DL (0.55-1.30); GLOMERULAR FILTRATION RATE > 60.0 (>32); GLUCOSE, FASTING 82 MG/DL (70-100); POTASSIUM SERUM 3.7 MEQ/L (3.5-5.1); SODIUM LEVEL 139 MEQ/L (136-145)
[2020-03-28 08:45] VITALS: BP 136/58
[2020-03-28] MEDS: bisoproloL fumarate 5 MG TAB PO SCH (09:00)
[2020-03-28] MEDS: amLODIPine 5 MG TAB PO SCH (09:00)
[2020-03-28] MEDS: FERROUS GLUCONATE 324 MG TAB PO SCH (09:01)
[2020-03-28] MEDS: MIRALAX *UNIT DOSE* 17GM PACKET PO SCH (09:01)
[2020-03-28] MEDS: DOCUSATE SODIUM 100 MG CAP PO SCH (09:01)
[2020-03-28] MEDS: METAMUCIL (PSYLLIUM) PACKET PO SCH (09:01)
[2020-03-28] MEDS: ASPIRIN 81 MG ENTERIC TAB PO SCH (09:02)
[2020-03-28 09:03] VITALS: BP 147/58
[2020-03-28] MEDS: OLMESARTAN MEDOXOMIL 20 MG TAB (BENICAR) PO SCH (09:03)
[2020-03-28] MEDS: **NOTE PATIENT COMMENT** MISC XX SCH (09:07)
[2020-03-28] MEDS ORDERED: ASPI81TAEC PO (10:36)
[2020-03-28] MEDS ORDERED: ACET1TAB55 PO (10:36)
[2020-03-28] MEDS ORDERED: LIDO5TD TD (10:36)
--- NOTE | 2020-03-28 18:48 | DS.PDOC ---
Discharge Summary General Date of Admission Mar 22, 2020 at 10:00 Date of Discharge 03/28/20 Discharge Summary PROCEDURES PERFORMED DURING STAY: Left hip arthroplasty ADMITTING DIAGNOSES: 1. Hip fracture s/p mechanical fall SECONDARY DIAGNOSES: #HTN #hypothyroidism #chronic venous stasis ulcer COMPLICATIONS/CHIEF COMPLAINT: Hip Fracture. Hospital Course: 85 yo female presents for right hip pain after a mechanical fall, found to have right hip fracture. Underwent surgical repair. Hospital stay otherwise unremarkable. DISCHARGE MEDICATIONS: Please see below. ALLERGIES: Please see below. Physical Exam on day of discharge: VITAL SIGNS: See below General: NAD, lying comfortably in bed, in good spirits HEENT: NC/AT, EOMI Lungs: CTA B/L Heart: +S1S2, RRR, no M/R/G Abd: soft, NT, +BS Ext: no edema LABORATORY DATA: Please see below. ACTIVITY: as per PT DISPOSITION: 62 D/T Rehab Facility. DISCHARGE INSTRUCTIONS: 1. PCP in 3-5 days 2. Ortho as scheduled 3. Further direction as per rehab DISCHARGE CONDITION: [Stable]. TIME SPENT ON DISCHARGE: 35 minutes. Vital Signs/I&Os Vital Signs Date Time Temp Pulse Resp B/P (MAP) Pulse Ox O2 Delivery O2 Flow Rate FiO2 03/28/20 09:03 147/58 03/28/20 09:00 88 03/28/20 05:14 98.4 17 97 Room Air I&O- Last 24 Hours up to 6 AM 03/28/20 06:00 Intake Total 1570 ml Output Total 0 ml Balance 1570 ml Laboratory Data Labs 24H Laboratory Tests 2 03/28/20 05:49: Anion Gap 5L, Glomerular Filtration Rate > 60.0, Calcium Level 7.8L CBC/BMP Laboratory Tests 03/28/20 05:49 Microbiology Microbiology 03/22/20 Respiratory Virus Panel (PCR) ([facility]) - Final, Complete Discharge Medications Scheduled Aspirin (Aspirin EC) 81 Mg Tablet.dr, 81 MG PO BID Bisoprolol Fumarate (Bisoprolol Fumarate) 5 Mg Tablet, 1 TAB PO DAILY, (Reported) Cholecalciferol (Vitamin D3) (Vitamin D3) 2,000 Unit Tablet, 1 TAB PO DAILY, (Reported) Docusate Sodium (Docusate Sodium) 100 Mg Capsule, 100 MG PO DAILY for constipation, (Reported) Ferrous Gluconate (Ferrous Gluconate) 324 Mg Tablet, 324 MG PO DAILY for iron, (Reported) Levothyroxine Sodium (Levothyroxine Sodium) 25 Mcg Tab, 25 MCG PO QAM, (Reported) Lidocaine (Lidocaine) 5% Adh..patch, 1 PATCH TD QHS Olmesartan Medoxomil (Olmesartan Medoxomil) 40 Mg Tablet, 40 MG PO DAILY, (Reported) Scheduled PRN Acetaminophen (Acetaminophen) 325 Mg Tablet, 650 MG PO Q4HP PRN for PAIN Miscellaneous Medications Amlodipine Besylate (Amlodipine Besylate) 5 Mg Tab, (Reported) Allergies Coded Allergies: Penicillins (Verified Allergy, Unknown, unknown, 04/24/19) LIZ MCKEON MD Mar 28, 2020 18:48
--- NOTE | 2020-03-30 11:57 | RO ---
DATE OF PROCEDURE: 03/23/2020 PREOPERATIVE DIAGNOSIS: Right hip fracture. POSTOPERATIVE DIAGNOSIS: Right hip fracture. PROCEDURE PERFORMED: Right hip closed reduction and internal fixation with septal intramedullary nail femur. SURGEON: Leo Mendoza MD DENSITOMETRIST: ANESTHESIA: Spinal. Estimated blood loss less than 100, replaced crystalloid. No complications. INDICATIONS: Fall while ambulating, fracture right hip intertrochanteric. Patient has elected for operative intervention. Consent reviewed in detail with the patient including the a discussion of the pathology involved, alternatives such as doing nothing, risks including but not limited to pain, failure, infection, bleeding, blood loss, incomplete relief of symptoms, gait trouble, and other problems. The patient agrees to proceed. OPERATIVE COURSE: Identified in holding area. Site and side verified. Brought to the operating room. Once spinal anesthesia was administered, positioned on the fracture table. Once on the fracture table, I implemented a reduction maneuver. Fluoroscopy was brought in and we verified the reduction as being nearly anatomic. Next, he was then sterilely prepped and draped in usual fashion for exposure of the right hip. Time-out was accomplished. Incision outlined with a marking pen infiltrated with 0.25% Marcaine with epinephrine. The incision just proximal to the greater trochanter was made with a #10 blade knife, developed down through subcuticular tissues, lateral fascia split, axis to the greater trochanter obtained, guidewire passed through the greater trochanter towards the lesser trochanter. Placement of guidewire verified AP and lateral fluoroscopy. Next, the guidewire was overdrilled with the trochanteric drill. Next, we obtained the intermediate intramedullary device and passed it over the guidewire into place. Next, the distal incision was made with a #10 blade developed down through skin and subcuticular tissues. Lateral fascia again split. Targeting arm was installed. The guidewire was advanced to the lateral aspect of the greater trochanter exiting lateral aspect of the femur. Next, the guidewire advanced to the lateral aspect the femur. The guidewire was then advanced using the drill device into the femoral head. this position was verified using AP and lateral fluoroscopy and then we measured for a size 105 mm blade. Next, we then overdrilled the guidewire for a 105 mm blade. We then placed the 105 mm blade, tamped into place. It fit appropriate. All guidewires were removed. The blade locking device was engaged and backed off of quarter turn to allow for subsidence. Next, the blade was then disengaged from the chassis driver. Next, distal locking guide tube was installed, overdrilled predicting a size 44 mm screw. 44 mm screw placed in the distal locking hole using the targeting arm. Its positioned verified AP and lateral fluoroscopy. Next, the targeting arm was then disassembled and removed. Next, the wounds were irrigated, closed with interrupted stitch followed by Prineo dressing. The patient was then moved to hospital bed in good condition. For further details please refer to medical record. Components include the Synthes trochanteric fixation nailing (TFN) intermediate nail 11 mm.
== END 2020-03-28 16:55 | DRG 482 ==
LOC: M ED 06:09 → EDBD 06:09 → M MS5PR 10:00 → ENRESERV 10:11
PROVIDERS: ADMIT Internal Medicine; ATTEND Internal Medicine
PROC: 0QS606Z Reposition Right Upper Femur with Intramedullary Internal Fixation Device, Open Approach (ICD-10-PCS; principal; 2020-03-23 12:00)
DX: S72.141A Displaced intertrochanteric fracture of right femur, initial encounter for closed fracture (principal); W18.09XA Striking against other object with subsequent fall, initial encounter; Y92.009 Unspecified place in unspecified non-institutional (private) residence as the place of occurrence of the external cause; I10 Essential (primary) hypertension; R91.8 Other nonspecific abnormal finding of lung field; E03.9 Hypothyroidism, unspecified; I87.2 Venous insufficiency (chronic) (peripheral); Z79.899 Other long term (current) drug therapy; Z88.0 Allergy status to penicillin; Z11.59 Encounter for screening for other viral diseases

== ENCOUNTER 2020-03-28 11:56 | Inpatient (IN) | payer MEDICARE ==
[~2020-03-28] VITALS: Ht 160 cm; Wt 67.5 kg
[~2020-03-28 11:56] MED LIST changes: +ACET1TAB55 PO; +AMLO1TAB24; -AMLO5TAB6; -ASPI81TA85 PO; +ASPI81TA86 PO; +ASPI81TAEC PO; +LIDO5TD TD; +OLME40TA PO
[2020-03-28] MEDS ORDERED: oxyCODONE 5MG TAB PO PRN (15:30)
[2020-03-28 17:00] VITALS: BP 177/75
[2020-03-28] MEDS: GABAPENTIN 100 MG CAP PO SCH ×2 (18:01→20:15)
[2020-03-28] MEDS: REMEDY PHYTOPLEX Z-GUARD PASTE 113GM TUBE (FROM STOREROOM PRODUCT) TOP SCH ×2 (18:02→20:17)
[2020-03-28] MEDS: VITAMIN D 1,000 INTERNATIONAL UNITS TABLET PO SCH (18:02)
[2020-03-28] MEDS: ACETAMINOPHEN 500 MG TAB PO SCH ×3 (18:02→22:09)
[2020-03-28] MEDS: PANTOPRAZOLE 40MG TAB (PROTONIX) PO SCH (18:02)
[2020-03-28 20:00] VITALS: BP 130/60
[2020-03-28] MEDS: ASPIRIN 81 MG ENTERIC TAB PO SCH (20:15)
[2020-03-28] MEDS: SENNA 8.6 MG TAB (SENOKOT) PO SCH (20:15)
[2020-03-28] MEDS: DOCUSATE SODIUM 100 MG CAP PO SCH (20:15)
[2020-03-29] MEDS: LEVOTHYROXINE 25MCG TABLET (0.025MG) PO SCH (05:35)
[2020-03-29 06:00] VITALS: BP 145/68
[2020-03-29 07:34] LABS: BASO % 0.6 % (0.0-1.0); EOS # 0.3 10^3/uL (0.0-0.5); EOS % 5.1 % (0.0-3.0); HEMATOCRIT 26.7 % (36.0-47.0); HEMOGLOBIN 8.4 g/dl (12.0-15.5); LYMPH # 1.5 10^3/uL (1.5-5.0); LYMPH % 22.6 % (24.0-44.0); MEAN CORPUSCULAR HEMOGLOBIN 24.9 pg (27.0-33.0); MEAN CORPUSCULAR HGB CONC 31.5 g/dl (32.0-36.5); MONO # 0.9 10^3/uL (0.0-0.8); MONO % 12.8 % (0.0-5.0); NEUTROPHILS # 3.8 10^3/uL (1.5-8.5); NEUTROPHILS % 57.2 % (36.0-66.0); PLATELET COUNT, AUTOMATED 233 10^3/uL (150-450); RED BLOOD COUNT 3.38 10^6/uL (4.00-5.40); WHITE BLOOD COUNT 6.6 10^3/uL (4.0-10.0)
[2020-03-29 07:56] LABS: ALBUMIN 1.6 GM/DL (3.2-5.2); ALT/SGPT 13 U/L (12-78); BILIRUBIN,TOTAL 0.6 MG/DL (0.2-1.0); BLOOD UREA NITROGEN 16 MG/DL (7-18); CALCIUM LEVEL 7.9 MG/DL (8.8-10.2); CARBON DIOXIDE LEVEL 29 MEQ/L (21-32); CHLORIDE LEVEL 111 MEQ/L (98-107); CREATININE FOR GFR 0.43 MG/DL (0.55-1.30); GLOMERULAR FILTRATION RATE > 60.0 (>32); GLUCOSE, FASTING 87 MG/DL (70-100); POTASSIUM SERUM 3.8 MEQ/L (3.5-5.1); SODIUM LEVEL 145 MEQ/L (136-145); TOTAL PROTEIN 5.1 GM/DL (6.4-8.2)
[2020-03-29] MEDS: REMEDY PHYTOPLEX Z-GUARD PASTE 113GM TUBE (FROM STOREROOM PRODUCT) TOP SCH ×3 (09:00→20:19)
[2020-03-29] MEDS: PANTOPRAZOLE 40MG TAB (PROTONIX) PO SCH (09:49)
[2020-03-29] MEDS: GABAPENTIN 100 MG CAP PO SCH ×3 (09:49→20:34)
[2020-03-29] MEDS: VITAMIN D 1,000 INTERNATIONAL UNITS TABLET PO SCH (09:49)
[2020-03-29] MEDS: ACETAMINOPHEN 500 MG TAB PO SCH ×3 (09:50→20:34)
[2020-03-29] MEDS: bisoproloL fumarate 5 MG TAB PO SCH (09:50)
[2020-03-29] MEDS: ASPIRIN 81 MG ENTERIC TAB PO SCH ×2 (09:50→20:34)
[2020-03-29] MEDS: FERROUS GLUCONATE 324 MG TAB PO SCH (09:51)
[2020-03-29] MEDS: DOCUSATE SODIUM 100 MG CAP PO SCH ×2 (09:51→20:34)
[2020-03-29] MEDS: OLMESARTAN MEDOXOMIL 20 MG TAB (BENICAR) PO SCH (09:51)
[2020-03-29] MEDS: amLODIPine 5 MG TAB PO SCH (09:51)
--- NOTE | 2020-03-29 12:50 | HPEPDOC ---
[employer] Note DATE OF ADMISSION: 03-28-20 DATE OF SERVICE: 03-29-20 TIME OF ADMISSION: Please refer to physician's admission order. SOURCE OF ADMISSION INFORMATION: patient and [facility] record CHIEF COMPLAINT: hip fracture HISTORY OF PRESENT ILLNESS: 85F pmh HTN, hypothyroidism, PVD with LLE venous stasis ulcer followed by Dr. Mendieta who fells at home and presented to [facility] ED on 03-22-20 where she was diagnosed with a right hip fracture with Xray showing, There is a comminuted fracture involving the proximal right femur with a predominant intertrochanteric component. She was evaluated by orthopedics, cleared by medicine and underwent a right hip ORIF on 03-23-20 which was complicated by post-op anemia and leukocytosis. She was evaluated by therapy, found to have impairments in mobility and ADLs and deemed medically appropriate for discharge to ARU on 03-28-20. REVIEW OF SYSTEMS: The following is a completed review of systems and has been reviewed. Review of systems otherwise unremarkable. PAIN: Patient self reports minimal pain EYES: No recent vision changes EARS, NOSE, & THROAT: No throat pain, or dysphagia, or rhinorrhea CARDIOVASCULAR: Denies chest pain or palpitations PULMONARY: Denies shortness of breath GASTROINTESTINAL: Denies constipation/diarrhea GENITOURINARY: denies dysuria MUSCULOSKELETAL: RLE hip fracture NEUROLOGICAL: denies paresthesias or focal tremor HEMATOLOGICAL: +anemia SKIN: left LE venous ulcer and right hip incision PSYCHIATRIC: Unremarkable All other review of systems found to be negative. PAST MEDICAL HISTORY: as per hPI ALLERGIES: Please see below. MEDICATIONS: Please see below. SOCIAL HISTORY: former smoker, no etoh/illicit drugs DIET: low sodium PHYSICAL EXAMINATION: VITAL SIGNS: Please see below. GENERAL: Pleasant and cooperative. No acute distress. HEENT: PERRL. Extraocular movements intact. Clear conjunctiva CARDIOVASCULAR: Regular rate and rhythm. No murmurs, rubs, or gallops LUNGS: Clear to auscultation bilaterally. No wheezes. No rhonchi ABDOMEN: Soft, nontender, nondistended. Positive bowel sounds. Normal active bowel sounds NEUROLOGICAL: Alert and oriented times three. Cranial nerves II through XII grossly intact. Sensation grossly intact EXTREMITIES: 5\5 strength bilateral upper extremities. >3\5 strength right lower extremity )limited due to recent surgery) 5/5 strength in left lower extremity. SKIN: right hip incision with dermabond c/d/i, left LE ulcer wrapped in Kerlix LABORATORY DATA: Please see below. IMAGING:Imaging documentation personally reviewed by record FUNCTIONAL STATUS: Premorbid: Independent with all activities of daily life as well as mobility. On Admission: Min-Mod assist for bed mobility, functional transfers, ambulation x 8 feet contact guard GOALS: Mod-I community distances with RW, functional transfers, toileting, bathing, dressing, grooming ASSESSMENT:85-year-old F with past medical history of hypothyroidism who presents status post fall with right hp fracture PLAN: 1. rehab- PT/OT advance gait and ADls, strengthen/stretch/maintain ROM all 4 limbs 2. Ortho- s/p right hip ORIF, WBAT- ortho consulted 3. Cardiac- HTN c/u home meds, medicine consulted to assist in overall management 4. Resp- encourage incentive spirometry, monitor for infection 5. Endo- hx of hypothryoidsim c/u synthroid 6. DVT ppx- ASa 81mg BID 7. VAsc- hx of LLE venous stasis ulcer, c/u every other day wound dressing changes, f/u Dr. Mendieta 8. Pain- tylenol, low dose gabapentin, oxycodone orn 9. GI ppx- protonix 10. Dispo- TBD POST ADMISSION PHYSICIAN EVALUATION: Medical and functional status: Description of medical status, medical assessment: As above. Rehabilitation diagnosis and current and prior cold morbid medical conditions as above. Risk of complications and plans to mitigate them as above. Description of functional status current status is as above. Prior status as above. Status compared to preadmission: There are no clinically significant differences between the patient's current status and the information described on the preadmission screening document. Treatment plan anticipated: Treatment plan is as described above. Required disciplines including physical therapy, occupational therapy, others as noted above. Intensity of services: 3 hours a day, 6 days a week. Special considerations: There are no specific special or safety considerations that would likely preclude immediate implementation of an intensive rehabilitation program or subsequently influence the plan of care ATTESTATION: Considering all the information above, it is my best judgment that this patient requires intensive rehabilitation therapy as described above and an inpatient hospital environment due to the complexity of nursing, medical, and rehabilitation needs required by the patient. Furthermore, this patient can reasonably be expected to participate in an benefit from an inpatient rehabilitation stay with an interdisciplinary team approach to the delivery of rehabilitation care under the direction and supervision of rehabilitation physician PROGNOSIS: Excellent ESTIMATED LENGTH OF STAY:10-14 days. PROJECTED DISCHARGE DESTINATION: Home with family support and any durable medical equipment required to increase functional safety and mobility. TIME SPENT COUNSELING AND COORDINATING INITIAL CARE: Greater than 70 minutes. Vital Signs Vital Sign - Last 24 Hours 03/28/20 03/28/20 03/29/20 03/29/20 17:00 20:00 06:00 09:50 Temp 98.6 97.7 98.0 Pulse 86 83 73 Resp 19 16 17 B/P (MAP) 177/75 (109) 130/60 (83) 145/68 (93) 144/70 Pulse Ox 95 95 97 O2 Delivery Room Air Room Air Room Air 03/29/20 09:51 B/P (MAP) 144/70 Laboratory Data CBC/BMP Laboratory Tests 03/29/20 07:18 Labs 24H Laboratory Tests 2 03/29/20 07:18: Immature Granulocyte % (Auto) 1.7, Neutrophils (%) (Auto) 57.2, Lymphocytes (%) (Auto) 22.6L, Monocytes (%) (Auto) 12.8H, Eosinophils (%) (Auto) 5.1H, Basophils (%) (Auto) 0.6, Neutrophils # (Auto) 3.8, Lymphocytes # (Auto) 1.5, Monocytes # (Auto) 0.9H, Eosinophils # (Auto) 0.3, Basophils # (Auto) 0.0, Nucleated Red Blood Cells % (auto) 0.0, Anion Gap 5L, Glomerular Filtration Rate > 60.0, C alcium Level 7.9L, Total Bilirubin 0.6, Aspartate Amino Transf (AST/SGOT) 12, Alanine Aminotransferase (ALT/SGPT) 13, Alkaline Phosphatase 85, Total Protein 5.1L, Albumin 1.6L, Albumin/Globulin Ratio 0.5L Home Medications Scheduled Aspirin (Aspirin EC) 81 Mg Tablet.dr, 81 MG PO BID Bisoprolol Fumarate (Bisoprolol Fumarate) 5 Mg Tablet, 1 TAB PO DAILY, (Reported) Cholecalciferol (Vitamin D3) (Vitamin D3) 2,000 Unit Tablet, 1 TAB PO DAILY, (Reported) Docusate Sodium (Docusate Sodium) 100 Mg Capsule, 100 MG PO DAILY, (Reported) Ferrous Gluconate (Ferrous Gluconate) 324 Mg Tablet, 324 MG PO DAILY, (Reported) Levothyroxine Sodium (Levothyroxine Sodium) 25 Mcg Tab, 25 MCG PO QAM, (Reported) Lidocaine (Lidocaine) 5% Adh..patch, 1 PATCH TD QHS Olmesartan Medoxomil (Olmesartan Medoxomil) 40 Mg Tablet, 40 MG PO DAILY, (Reported) Scheduled PRN Acetaminophen (Acetaminophen) 325 Mg Tablet, 650 MG PO Q4HP PRN for PAIN Allergies Coded Allergies: Penicillins (Verified Allergy, Unknown, unknown, 04/24/19) A-FIB/CHADSVASC A-FIB History Current/History of A-Fib/PAF?: No CARINA KEVIN MD Mar 29, 2020 12:50
[2020-03-29 14:00] VITALS: BP 130/60
[2020-03-29] MEDS: FERROUS SULFATE 325MG TAB PO SCH ×2 (18:14→20:34)
[2020-03-29 20:00] VITALS: BP 119/55
[2020-03-29] MEDS: SENNA 8.6 MG TAB (SENOKOT) PO SCH (20:34)
[2020-03-30 06:00] VITALS: BP 157/70
[2020-03-30] MEDS: LEVOTHYROXINE 25MCG TABLET (0.025MG) PO SCH (06:22)
[2020-03-30 06:50] LABS: BASO # 0.1 10^3/uL (0.0-0.2); BASO % 0.6 % (0.0-1.0); EOS # 0.3 10^3/uL (0.0-0.5); EOS % 3.7 % (0.0-3.0); HEMATOCRIT 30.8 % (36.0-47.0); HEMOGLOBIN 9.4 g/dl (12.0-15.5); LYMPH # 1.9 10^3/uL (1.5-5.0); LYMPH % 22.7 % (24.0-44.0); MEAN CORPUSCULAR HEMOGLOBIN 24.7 pg (27.0-33.0); MEAN CORPUSCULAR HGB CONC 30.5 g/dl (32.0-36.5); MEAN CORPUSCULAR VOLUME 81.1 fl (80.0-96.0); MONO # 0.9 10^3/uL (0.0-0.8); MONO % 10.6 % (0.0-5.0); NEUTROPHILS % 59.7 % (36.0-66.0); PLATELET COUNT, AUTOMATED 299 10^3/uL (150-450); WHITE BLOOD COUNT 8.3 10^3/uL (4.0-10.0)
[2020-03-30 07:19] LABS: BLOOD UREA NITROGEN 19 MG/DL (7-18); CALCIUM LEVEL 8.3 MG/DL (8.8-10.2); CARBON DIOXIDE LEVEL 30 MEQ/L (21-32); CHLORIDE LEVEL 109 MEQ/L (98-107); CREATININE FOR GFR 0.49 MG/DL (0.55-1.30); GLOMERULAR FILTRATION RATE > 60.0 (>32); GLUCOSE, FASTING 82 MG/DL (70-100); POTASSIUM SERUM 3.3 MEQ/L (3.5-5.1); SODIUM LEVEL 143 MEQ/L (136-145)
[2020-03-30] MEDS: GABAPENTIN 100 MG CAP PO SCH ×3 (08:22→20:36)
[2020-03-30] MEDS: FERROUS GLUCONATE 324 MG TAB PO SCH (08:22)
[2020-03-30] MEDS: FERROUS SULFATE 325MG TAB PO SCH ×2 (08:22→20:36)
[2020-03-30] MEDS: VITAMIN D 1,000 INTERNATIONAL UNITS TABLET PO SCH (08:22)
[2020-03-30] MEDS: DOCUSATE SODIUM 100 MG CAP PO SCH ×2 (08:22→20:36)
[2020-03-30] MEDS: PANTOPRAZOLE 40MG TAB (PROTONIX) PO SCH (08:22)
[2020-03-30] MEDS: ASPIRIN 81 MG ENTERIC TAB PO SCH ×2 (08:22→20:36)
[2020-03-30] MEDS: amLODIPine 5 MG TAB PO SCH (08:23)
[2020-03-30] MEDS: OLMESARTAN MEDOXOMIL 20 MG TAB (BENICAR) PO SCH (08:23)
[2020-03-30] MEDS: bisoproloL fumarate 5 MG TAB PO SCH (08:23)
[2020-03-30] MEDS: ACETAMINOPHEN 500 MG TAB PO SCH ×3 (08:23→20:37)
[2020-03-30] MEDS: REMEDY PHYTOPLEX Z-GUARD PASTE 113GM TUBE (FROM STOREROOM PRODUCT) TOP SCH ×3 (08:24→20:37)
--- NOTE | 2020-03-30 12:11 | IPNPDOC ---
PM&R Progress Note DATE OF SERVICE: Mar 30, 2020 R Developer Progress Note Subjective: Patient reporting she feels well today and denies any fevers, chills, difficulty urinating. REVIEW OF SYSTEMS: The following is a completed review of systems and has been reviewed. Review of systems otherwise unremarkable. PAIN: Patient self reports minimal pain EYES: No recent vision changes EARS, NOSE, & THROAT: No throat pain, or dysphagia, or rhinorrhea CARDIOVASCULAR: Denies chest pain or palpitations PULMONARY: Denies shortness of breath GASTROINTESTINAL: Denies constipation/diarrhea GENITOURINARY: denies dysuria MUSCULOSKELETAL: RLE hip fracture NEUROLOGICAL: denies paresthesias or focal tremor HEMATOLOGICAL: +anemia SKIN: left LE venous ulcer and right hip incision PSYCHIATRIC: Unremarkable All other review of systems found to be negative. PHYSICAL EXAMINATION: VITAL SIGNS: Please see below. GENERAL: Pleasant and cooperative. No acute distress. HEENT: PERRL. Extraocular movements intact. Clear conjunctiva CARDIOVASCULAR: Regular rate and rhythm. No murmurs, rubs, or gallops LUNGS: Clear to auscultation bilaterally. No wheezes. No rhonchi ABDOMEN: Soft, nontender, nondistended. Positive bowel sounds. Normal active bowel sounds NEUROLOGICAL: Alert and oriented times three. Cranial nerves II through XII grossly intact. Sensation grossly intact EXTREMITIES: 5\5 strength bilateral upper extremities. >3\5 strength right lower extremity )limited due to recent surgery) 5/5 strength in left lower extremity. SKIN: right hip incision with dermabond c/d/i, left LE ulcer wrapped in Kerlix ASSESSMENT:85-year-old F with past medical history of hypothyroidism who presents status post fall with right hp fracture PLAN: 1. rehab- PT/OT advance gait and ADls, strengthen/stretch/maintain ROM all 4 limbs-ambulating with RW 2. Ortho- s/p right hip ORIF, WBAT- ortho consulted 3. Cardiac- HTN c/u home meds, medicine consulted to assist in overall management 4. Resp- encourage incentive spirometry, monitor for infection 5. Endo- hx of hypothryoidsim c/u synthroid 6. DVT ppx- ASa 81mg BID 7. VAsc- hx of LLE venous stasis ulcer, c/u every other day wound dressing changes, f/u Dr. Mendieta 8. Pain- tylenol, low dose gabapentin, oxycodone prn 9. GI ppx- protonix 10. Psych- therapy staff reporting patient is very anxious in therapy, suspect this is her baseline, will trial low dose of propranolol to see if this has a calming effect 11. Dispo- TBD Allergies Coded Allergies: Penicillins (Verified Allergy, Unknown, unknown, 04/24/19) Vital Signs Vital Signs Date Time Temp Pulse Resp B/P (MAP) Pulse Ox O2 Delivery O2 Flow Rate FiO2 03/30/20 08:23 153/67 03/30/20 06:00 97.4 70 17 96 Room Air Laboratory Data CBC/BMP Laboratory Tests 03/30/20 06:05 Labs 24H Laboratory Tests 2 03/30/20 06:05: Immature Granulocyte % (Auto) 2.7, Neutrophils (%) (Auto) 59.7, Lymphocytes (%) (Auto) 22.7L, Monocytes (%) (Auto) 10.6H, Eosinophils (%) (Auto) 3.7H, Basophils (%) (Auto) 0.6, Neutrophils # (Auto) 5.0, Lymphocytes # (Auto) 1.9, Monocytes # (Auto) 0.9H, Eosinophils # (Auto) 0.3, Basophils # (Auto) 0.1, Nucleated Red Blood Cells % (auto) 0.0, Anion Gap 4L, Glomerular Filtration Rate > 60.0, Calcium Level 8.3L Current Medications Current Medications Current Medications Medications (Trade) Dose Ordered Sig/Deja Route PRN Reason Start Time Stop Time Status Last Admin Dose Admin Acetaminophen (Tylenol Tab) 1,000 mg TID PO 03/28/20 16:00 03/30/20 08:23 Amlodipine Besylate (Norvasc) 5 mg DAILY PO 03/29/20 09:00 03/30/20 08:23 Aspirin (Ecotrin) 81 mg BID PO 03/28/20 21:00 03/30/20 08:22 Bisoprolol Fumarate (Zebeta) 5 mg DAILY PO 03/29/20 09:00 03/30/20 08:23 Docusate Sodium (Colace) 100 mg BID PO 03/28/20 21:00 03/30/20 08:22 Ferrous Gluconate (Fergon) 324 mg DAILY PO 03/29/20 09:00 03/30/20 12:06 DC 03/30/20 08:22 Ferrous Sulfate (Ferrous Sulfate) 325 mg BID PO 03/29/20 09:00 03/30/20 08:22 Gabapentin (Neurontin) 100 mg TID PO 03/28/20 16:00 03/30/20 08:22 Levothyroxine Sodium (Synthroid) 25 mcg DAILY@06 PO 03/29/20 06:00 03/30/20 06:22 Olmesartan (Benicar) 40 mg DAILY PO 03/29/20 09:00 03/30/20 08:23 Oxycodone HCl (Roxicodone, Oxyir) 5 mg Q4HP PRN PO PAIN 03/28/20 15:30 Pantoprazole Sodium (Protonix) 40 mg DAILY PO 03/28/20 09:00 03/30/20 08:22 Propranolol HCl (Inderal) 10 mg BID PO 03/30/20 21:00 UNV Senna (Senokot) 1 tab QHS PO 03/28/20 21:00 03/29/20 20:34 Vitamin D (Vitamin D) 2,000 units DAILY PO 03/28/20 09:00 03/30/20 08:22 CARINA KEVIN MD Mar 30, 2020 12:11
[2020-03-30] MEDS ORDERED: POTASSIUM CHLORIDE 10 MEQ SR TABLET PO ONE (12:15)
[2020-03-30 14:00] VITALS: BP 144/70
[2020-03-30] MEDS ORDERED: PROPRANOLOL 10 MG TAB PO SCH (14:00)
[2020-03-30 20:30] VITALS: BP 132/60
[2020-03-30] MEDS: SENNA 8.6 MG TAB (SENOKOT) PO SCH (20:36)
[2020-03-31] MEDS: LEVOTHYROXINE 25MCG TABLET (0.025MG) PO SCH (05:53)
[2020-03-31 06:04] VITALS: BP 125/56
[2020-03-31] MEDS: PANTOPRAZOLE 40MG TAB (PROTONIX) PO SCH (07:47)
[2020-03-31] MEDS: VITAMIN D 1,000 INTERNATIONAL UNITS TABLET PO SCH (07:47)
[2020-03-31] MEDS: GABAPENTIN 100 MG CAP PO SCH ×3 (07:47→21:29)
[2020-03-31] MEDS: FERROUS SULFATE 325MG TAB PO SCH ×2 (07:47→21:29)
[2020-03-31] MEDS: DOCUSATE SODIUM 100 MG CAP PO SCH ×2 (07:47→21:29)
[2020-03-31] MEDS: amLODIPine 5 MG TAB PO SCH (07:48)
[2020-03-31] MEDS: OLMESARTAN MEDOXOMIL 20 MG TAB (BENICAR) PO SCH (07:48)
[2020-03-31] MEDS: ASPIRIN 81 MG ENTERIC TAB PO SCH ×2 (07:48→21:29)
[2020-03-31] MEDS: ACETAMINOPHEN 500 MG TAB PO SCH ×3 (07:48→21:28)
[2020-03-31] MEDS: bisoproloL fumarate 5 MG TAB PO SCH (07:48)
[2020-03-31] MEDS: REMEDY PHYTOPLEX Z-GUARD PASTE 113GM TUBE (FROM STOREROOM PRODUCT) TOP SCH ×3 (07:49→21:00)
[2020-03-31 09:07] LABS: BLOOD UREA NITROGEN 27 MG/DL (7-18); CALCIUM LEVEL 8.5 MG/DL (8.8-10.2); CARBON DIOXIDE LEVEL 28 MEQ/L (21-32); CHLORIDE LEVEL 107 MEQ/L (98-107); CREATININE FOR GFR 0.55 MG/DL (0.55-1.30); GLOMERULAR FILTRATION RATE > 60.0 (>32); GLUCOSE, FASTING 82 MG/DL (70-100); POTASSIUM SERUM 4.4 MEQ/L (3.5-5.1); SODIUM LEVEL 142 MEQ/L (136-145)
--- NOTE | 2020-03-31 09:42 | IPNPDOC ---
PM&R Progress Note DATE OF SERVICE: Mar 31, 2020 Home Health Care Coordinator Progress Note Subjective: Patient reporting she feels well today and has minimal pain. REVIEW OF SYSTEMS: The following is a completed review of systems and has been reviewed. Review of systems otherwise unremarkable. PAIN: Patient self reports minimal pain EYES: No recent vision changes EARS, NOSE, & THROAT: No throat pain, or dysphagia, or rhinorrhea CARDIOVASCULAR: Denies chest pain or palpitations PULMONARY: Denies shortness of breath GASTROINTESTINAL: Denies constipation/diarrhea GENITOURINARY: denies dysuria MUSCULOSKELETAL: RLE hip fracture NEUROLOGICAL: denies paresthesias or focal tremor HEMATOLOGICAL: +anemia SKIN: left LE venous ulcer and right hip incision PSYCHIATRIC: Unremarkable All other review of systems found to be negative. PHYSICAL EXAMINATION: VITAL SIGNS: Please see below. GENERAL: Pleasant and cooperative. No acute distress. HEENT: PERRL. Extraocular movements intact. Clear conjunctiva CARDIOVASCULAR: Regular rate and rhythm. No murmurs, rubs, or gallops LUNGS: Clear to auscultation bilaterally. No wheezes. No rhonchi ABDOMEN: Soft, nontender, nondistended. Positive bowel sounds. Normal active bowel sounds NEUROLOGICAL: Alert and oriented times three. Cranial nerves II through XII grossly intact. Sensation grossly intact EXTREMITIES: 5\5 strength bilateral upper extremities. >3\5 strength right lower extremity )limited due to recent surgery) 5/5 strength in left lower extremity. SKIN: right hip incision with dermabond c/d/i, left LE ulcer with granulation tissue, no induration, no exudate ASSESSMENT:85-year-old F with past medical history of hypothyroidism who presents status post fall with right hp fracture PLAN: 1. rehab- PT/OT advance gait and ADls, strengthen/stretch/maintain ROM all 4 limbs-ambulating with RW 2. Ortho- s/p right hip ORIF, WBAT- ortho consulted 3. Cardiac- HTN c/u home meds, medicine consulted to assist in overall management 4. Resp- encourage incentive spirometry, monitor for infection 5. Endo- hx of hypothryoidsim c/u synthroid 6. DVT ppx- ASa 81mg BID 7. VAsc- hx of LLE venous stasis ulcer, c/u every other day wound dressing changes, f/u Dr. Mendieta 8. Pain- tylenol, low dose gabapentin, oxycodone prn 9. GI ppx- protonix 10. Psych- holding off on any medication for anxiety as patient reports this is her baseline and she does not want to be on any medication 11. Dispo- TBD Allergies Coded Allergies: Penicillins (Verified Allergy, Unknown, unknown, 04/24/19) Vital Signs Vital Signs Date Time Temp Pulse Resp B/P (MAP) Pulse Ox O2 Delivery O2 Flow Rate FiO2 03/31/20 07:48 69 125/56 03/31/20 06:04 98.5 18 98 Room Air Laboratory Data CBC/BMP Laboratory Tests 03/31/20 07:18 Labs 24H Laboratory Tests 2 03/31/20 07:18: Anion Gap 7L, Glomerular Filtration Rate > 60.0, Calcium Level 8.5L Current Medications Current Medications Current Medications Medications (Trade) Dose Ordered Sig/Deja Route PRN Reason Start Time Stop Time Status Last Admin Dose Admin Acetaminophen (Tylenol Tab) 1,000 mg TID PO 03/28/20 16:00 03/31/20 07:48 Amlodipine Besylate (Norvasc) 5 mg DAILY PO 03/29/20 09:00 03/31/20 07:48 Aspirin (Ecotrin) 81 mg BID PO 03/28/20 21:00 03/31/20 07:48 Bisoprolol Fumarate (Zebeta) 5 mg DAILY PO 03/29/20 09:00 03/31/20 07:48 Docusate Sodium (Colace) 100 mg BID PO 03/28/20 21:00 03/31/20 07:47 Ferrous Gluconate (Fergon) 324 mg DAILY PO 03/29/20 09:00 03/30/20 12:06 DC 03/30/20 08:22 Ferrous Sulfate (Ferrous Sulfate) 325 mg BID PO 03/29/20 09:00 03/31/20 07:47 Gabapentin (Neurontin) 100 mg TID PO 03/28/20 16:00 03/31/20 07:47 Levothyroxine Sodium (Synthroid) 25 mcg DAILY@06 PO 03/29/20 06:00 03/31/20 05:53 Olmesartan (Benicar) 40 mg DAILY PO 03/29/20 09:00 03/31/20 07:48 Oxycodone HCl (Roxicodone, Oxyir) 5 mg Q4HP PRN PO PAIN 03/28/20 15:30 Pantoprazole Sodium (Protonix) 40 mg DAILY PO 03/28/20 09:00 03/31/20 07:47 Propranolol HCl (Inderal) 10 mg BID PO 03/30/20 14:00 03/30/20 13:42 DC Senna (Senokot) 1 tab QHS PO 03/28/20 21:00 03/30/20 20:36 Vitamin D (Vitamin D) 2,000 units DAILY PO 03/28/20 09:00 03/31/20 07:47 CARINA KEVIN MD Mar 31, 2020 09:42
--- NOTE | 2020-03-31 12:39 | CR.PDOC ---
General Date of Consultation: Mar 31, 2020 Consultation Reason for consultation Medical management HISTORY OF PRESENT ILLNESS: 85F pmh HTN, hypothyroidism, PVD with LLE venous stasis ulcer followed by Dr. Ramirez who fells at home and presented to [facility] ED on 03-22-20 where she was diagnosed with a right hip fracture with Xray showing, a comminuted fracture involving the proximal right femur with a predominant intertrochanteric component. She was evaluated by orthopedics, cleared by medicine and underwent a right hip ORIF on 03-23-20 which was complicated by post-op anemia and leukocytosis which was reactive and has normalized now. She was discharge to ARU on 03-28-20. Denies any chest pain, shortness of breath, any fever, any rigors, any chills. REVIEW OF SYSTEMS: Pertinent positive findings as per HPI. Rest negative PAST MEDICAL HISTORY: as per hPI MEDICATIONS: Please see below. SOCIAL HISTORY: former smoker, no etoh/illicit drugs DIET: low sodium PHYSICAL EXAMINATION: GENERAL: Pleasant and cooperative. No acute distress. HEENT: PERRL. Extraocular movements intact. Clear conjunctiva CARDIOVASCULAR: Regular rate and rhythm. No murmurs, rubs, or gallops LUNGS: Clear to auscultation bilaterally. No wheezes. No rhonchi ABDOMEN: Soft, nontender, nondistended. Positive bowel sounds. Normal active bowel sounds NEUROLOGICAL: Alert and oriented times three. Cranial nerves II through XII grossly intact. Sensation grossly intact EXTREMITIES: 5\5 strength bilateral upper extremities. >3\5 strength right lower extremity )limited due to recent surgery) 5/5 strength in left lower extremity. LABORATORY DATA: Please see below. ASSESSMENT: 85 yo female for hip fracture after mechanical fall, PMHx HTN, hypothyroid, chronic venous stasis ulcer. #Right Hip Fx: Patient is status post right hip ORIF on 03-23-20 . Currently being evaluated by physical therapy and undergoing therapy. She will require an Ortho follow up in 2 weeks #HTN. Stable. Continue home meds with hold parameters #hypothyroidism . TSH reviewed. Continue levothyroxine #chronic venous stasis ulcer. follows with dr ramirez continue with dressing directions as per wound care #DVT prophylaxis Disposition is the primary Vital Signs/I&O Vital Signs Date Time Temp Pulse Resp B/P (MAP) Pulse Ox O2 Delivery O2 Flow Rate FiO2 03/31/20 07:48 69 125/56 03/31/20 06:04 98.5 18 98 Room Air I&O- Last 24 Hours up to 6 AM 03/31/20 06:00 Intake Total 1740 ml Balance 1740 ml Laboratory Data Labs 24H Laboratory Tests 2 03/31/20 07:18: Anion Gap 7L, Glomerular Filtration Rate > 60.0, Calcium Level 8.5L CBC/BMP Laboratory Tests 03/31/20 07:18 Allergies Coded Allergies: Penicillins (Verified Allergy, Unknown, unknown, 04/24/19) Home Medications Scheduled Aspirin (Aspirin EC) 81 Mg Tablet.dr, 81 MG PO BID for 28 Days Bisoprolol Fumarate (Bisoprolol Fumarate) 5 Mg Tablet, 1 TAB PO DAILY for 30 Days, #30 (Reported) Cholecalciferol (Vitamin D3) (Vitamin D3) 2,000 Unit Tablet, 1 TAB PO DAILY for 30 Days, #30 (Reported) Docusate Sodium (Docusate Sodium) 100 Mg Capsule, 100 MG PO DAILY for constipation, (Reported) Ferrous Gluconate (Ferrous Gluconate) 324 Mg Tablet, 324 MG PO DAILY for iron, (Reported) Levothyroxine Sodium (Levothyroxine Sodium) 25 Mcg Tab, 25 MCG PO QAM, (Reported) Lidocaine (Lidocaine) 5% Adh..patch, 1 PATCH TD QHS for 7 Days Olmesartan Medoxomil (Olmesartan Medoxomil) 40 Mg Tablet, 40 MG PO DAILY, (Reported) Scheduled PRN Acetaminophen (Acetaminophen) 325 Mg Tablet, 650 MG PO Q4HP PRN for PAIN for 7 Days Miscellaneous Medications Amlodipine Besylate (Amlodipine Besylate) 5 Mg Tab, (Reported) CHEAM KIM MD Mar 31, 2020 12:39
[2020-03-31 14:00] VITALS: BP 129/60
[2020-03-31 20:30] VITALS: BP 138/63
[2020-03-31] MEDS: SENNA 8.6 MG TAB (SENOKOT) PO SCH (21:29)
[2020-04-01] MEDS: LEVOTHYROXINE 25MCG TABLET (0.025MG) PO SCH (05:38)
[2020-04-01 06:00] VITALS: BP 160/70
[2020-04-01 06:14] VITALS: BP 148/56
[2020-04-01 07:36] LABS: BASO % 0.3 % (0.0-1.0); EOS # 0.2 10^3/uL (0.0-0.5); EOS % 2.6 % (0.0-3.0); HEMOGLOBIN 8.6 g/dl (12.0-15.5); LYMPH # 1.6 10^3/uL (1.5-5.0); LYMPH % 16.9 % (24.0-44.0); MEAN CORPUSCULAR HEMOGLOBIN 24.3 pg (27.0-33.0); MEAN CORPUSCULAR HGB CONC 29.7 g/dl (32.0-36.5); MEAN CORPUSCULAR VOLUME 81.9 fl (80.0-96.0); MONO # 0.9 10^3/uL (0.0-0.8); MONO % 9.3 % (0.0-5.0); NEUTROPHILS # 6.2 10^3/uL (1.5-8.5); NEUTROPHILS % 67.4 % (36.0-66.0); PLATELET COUNT, AUTOMATED 328 10^3/uL (150-450); RED BLOOD COUNT 3.54 10^6/uL (4.00-5.40); WHITE BLOOD COUNT 9.2 10^3/uL (4.0-10.0)
[2020-04-01 07:59] LABS: BLOOD UREA NITROGEN 25 MG/DL (7-18); CALCIUM LEVEL 8.4 MG/DL (8.8-10.2); CARBON DIOXIDE LEVEL 27 MEQ/L (21-32); CHLORIDE LEVEL 108 MEQ/L (98-107); CREATININE FOR GFR 0.52 MG/DL (0.55-1.30); GLOMERULAR FILTRATION RATE > 60.0 (>32); GLUCOSE, FASTING 85 MG/DL (70-100); POTASSIUM SERUM 4.2 MEQ/L (3.5-5.1); SODIUM LEVEL 144 MEQ/L (136-145)
[2020-04-01] MEDS: OLMESARTAN MEDOXOMIL 20 MG TAB (BENICAR) PO SCH (11:05)
[2020-04-01] MEDS: GABAPENTIN 100 MG CAP PO SCH ×3 (11:05→20:23)
[2020-04-01] MEDS: PANTOPRAZOLE 40MG TAB (PROTONIX) PO SCH (11:06)
[2020-04-01] MEDS: DOCUSATE SODIUM 100 MG CAP PO SCH ×2 (11:06→20:27)
[2020-04-01] MEDS: ACETAMINOPHEN 500 MG TAB PO SCH ×3 (11:06→20:23)
[2020-04-01] MEDS: VITAMIN D 1,000 INTERNATIONAL UNITS TABLET PO SCH (11:06)
[2020-04-01] MEDS: ASPIRIN 81 MG ENTERIC TAB PO SCH ×2 (11:06→20:23)
[2020-04-01] MEDS: amLODIPine 5 MG TAB PO SCH (11:06)
[2020-04-01] MEDS: FERROUS SULFATE 325MG TAB PO SCH ×2 (11:06→20:23)
[2020-04-01] MEDS: bisoproloL fumarate 5 MG TAB PO SCH (11:07)
[2020-04-01] MEDS: REMEDY PHYTOPLEX Z-GUARD PASTE 113GM TUBE (FROM STOREROOM PRODUCT) TOP SCH ×3 (11:07→20:23)
[2020-04-01 14:00] VITALS: BP 134/64
[2020-04-01 20:00] VITALS: BP 127/62
[2020-04-01] MEDS: SENNA 8.6 MG TAB (SENOKOT) PO SCH (20:27)
[2020-04-02] MEDS: LEVOTHYROXINE 25MCG TABLET (0.025MG) PO SCH (05:48)
[2020-04-02 05:49] VITALS: BP 148/66
[2020-04-02] MEDS: FERROUS SULFATE 325MG TAB PO SCH ×2 (09:00→20:22)
[2020-04-02] MEDS: OLMESARTAN MEDOXOMIL 20 MG TAB (BENICAR) PO SCH (09:05)
[2020-04-02] MEDS: amLODIPine 5 MG TAB PO SCH (09:06)
[2020-04-02] MEDS: DOCUSATE SODIUM 100 MG CAP PO SCH ×2 (09:06→20:01)
[2020-04-02] MEDS: PANTOPRAZOLE 40MG TAB (PROTONIX) PO SCH (09:06)
[2020-04-02] MEDS: VITAMIN D 1,000 INTERNATIONAL UNITS TABLET PO SCH (09:06)
[2020-04-02] MEDS: bisoproloL fumarate 5 MG TAB PO SCH (09:06)
[2020-04-02] MEDS: ACETAMINOPHEN 500 MG TAB PO SCH ×3 (09:06→20:23)
[2020-04-02] MEDS: ASPIRIN 81 MG ENTERIC TAB PO SCH ×2 (09:07→20:22)
[2020-04-02] MEDS: GABAPENTIN 100 MG CAP PO SCH ×3 (09:07→20:22)
[2020-04-02] MEDS: REMEDY PHYTOPLEX Z-GUARD PASTE 113GM TUBE (FROM STOREROOM PRODUCT) TOP SCH ×3 (09:08→20:01)
[2020-04-02 14:00] VITALS: BP 124/56
[2020-04-02 19:38] VITALS: BP 149/64
[2020-04-02] MEDS: SENNA 8.6 MG TAB (SENOKOT) PO SCH (20:01)
[2020-04-03] MEDS: LEVOTHYROXINE 25MCG TABLET (0.025MG) PO SCH (05:38)
[2020-04-03 05:47] VITALS: BP 150/80
[2020-04-03] MEDS: ACETAMINOPHEN 500 MG TAB PO SCH ×3 (08:48→20:44)
[2020-04-03] MEDS: FERROUS SULFATE 325MG TAB PO SCH ×2 (08:48→20:44)
[2020-04-03] MEDS: GABAPENTIN 100 MG CAP PO SCH ×3 (08:48→20:44)
[2020-04-03] MEDS: PANTOPRAZOLE 40MG TAB (PROTONIX) PO SCH (08:48)
[2020-04-03] MEDS: ASPIRIN 81 MG ENTERIC TAB PO SCH ×2 (08:48→20:44)
[2020-04-03] MEDS: DOCUSATE SODIUM 100 MG CAP PO SCH ×2 (08:48→20:01)
[2020-04-03] MEDS: VITAMIN D 1,000 INTERNATIONAL UNITS TABLET PO SCH (08:48)
[2020-04-03] MEDS: amLODIPine 5 MG TAB PO SCH (08:59)
[2020-04-03] MEDS: OLMESARTAN MEDOXOMIL 20 MG TAB (BENICAR) PO SCH (09:00)
[2020-04-03] MEDS: REMEDY PHYTOPLEX Z-GUARD PASTE 113GM TUBE (FROM STOREROOM PRODUCT) TOP SCH ×3 (09:00→20:44)
[2020-04-03] MEDS: bisoproloL fumarate 5 MG TAB PO SCH (09:00)
[2020-04-03 14:00] VITALS: BP 140/64
[2020-04-03] MEDS: SENNA 8.6 MG TAB (SENOKOT) PO SCH (20:01)
[2020-04-03 20:20] VITALS: BP 146/63
[2020-04-04] MEDS: LEVOTHYROXINE 25MCG TABLET (0.025MG) PO SCH (05:20)
[2020-04-04 05:39] VITALS: BP 149/77
[2020-04-04] MEDS: FERROUS SULFATE 325MG TAB PO SCH ×2 (08:53→20:06)
[2020-04-04] MEDS: GABAPENTIN 100 MG CAP PO SCH ×3 (08:53→20:06)
[2020-04-04] MEDS: ASPIRIN 81 MG ENTERIC TAB PO SCH ×2 (08:53→20:06)
[2020-04-04] MEDS: VITAMIN D 1,000 INTERNATIONAL UNITS TABLET PO SCH (08:53)
[2020-04-04] MEDS: PANTOPRAZOLE 40MG TAB (PROTONIX) PO SCH (08:53)
[2020-04-04] MEDS: DOCUSATE SODIUM 100 MG CAP PO SCH ×2 (08:53→20:06)
[2020-04-04] MEDS: bisoproloL fumarate 5 MG TAB PO SCH (08:54)
[2020-04-04] MEDS: ACETAMINOPHEN 500 MG TAB PO SCH ×3 (08:54→20:07)
[2020-04-04] MEDS: OLMESARTAN MEDOXOMIL 20 MG TAB (BENICAR) PO SCH (08:54)
[2020-04-04] MEDS: amLODIPine 5 MG TAB PO SCH (08:54)
[2020-04-04] MEDS: REMEDY PHYTOPLEX Z-GUARD PASTE 113GM TUBE (FROM STOREROOM PRODUCT) TOP SCH ×3 (08:55→20:07)
[2020-04-04 09:26] LABS: BASO # 0.1 10^3/uL (0.0-0.2); BASO % 0.5 % (0.0-1.0); EOS # 0.2 10^3/uL (0.0-0.5); HEMATOCRIT 31.4 % (36.0-47.0); HEMOGLOBIN 9.4 g/dl (12.0-15.5); LYMPH # 1.6 10^3/uL (1.5-5.0); LYMPH % 16.8 % (24.0-44.0); MEAN CORPUSCULAR HEMOGLOBIN 25.1 pg (27.0-33.0); MEAN CORPUSCULAR HGB CONC 29.9 g/dl (32.0-36.5); MEAN CORPUSCULAR VOLUME 83.7 fl (80.0-96.0); MONO # 0.4 10^3/uL (0.0-0.8); MONO % 4.6 % (0.0-5.0); NEUTROPHILS # 7.1 10^3/uL (1.5-8.5); NEUTROPHILS % 75.1 % (36.0-66.0); PLATELET COUNT, AUTOMATED 386 10^3/uL (150-450); RED BLOOD COUNT 3.75 10^6/uL (4.00-5.40); WHITE BLOOD COUNT 9.4 10^3/uL (4.0-10.0)
[2020-04-04 09:44] LABS: BLOOD UREA NITROGEN 18 MG/DL (7-18); CALCIUM LEVEL 8.7 MG/DL (8.8-10.2); CARBON DIOXIDE LEVEL 29 MEQ/L (21-32); CHLORIDE LEVEL 107 MEQ/L (98-107); CREATININE FOR GFR 0.61 MG/DL (0.55-1.30); GLOMERULAR FILTRATION RATE > 60.0 (>32); GLUCOSE, FASTING 126 MG/DL (70-100); POTASSIUM SERUM 3.4 MEQ/L (3.5-5.1); SODIUM LEVEL 142 MEQ/L (136-145)
[2020-04-04] MEDS ORDERED: POTASSIUM CHLORIDE 10 MEQ SR TABLET PO ONE (10:00)
--- NOTE | 2020-04-04 13:11 | IPNPDOC ---
PM&R Progress Note DATE OF SERVICE: Apr 01, 2020 Retail Field Merchandiser Progress Note Subjective: Patient reporting she is in good spirits and feels she is getting stronger. She reports she is sleeping well and denies having trouble going to the bathroom. REVIEW OF SYSTEMS: The following is a completed review of systems and has been reviewed. Review of systems otherwise unremarkable. PAIN: Patient self reports minimal pain EYES: No recent vision changes EARS, NOSE, & THROAT: No throat pain, or dysphagia, or rhinorrhea CARDIOVASCULAR: Denies chest pain or palpitations PULMONARY: Denies shortness of breath GASTROINTESTINAL: Denies constipation/diarrhea GENITOURINARY: denies dysuria MUSCULOSKELETAL: RLE hip fracture NEUROLOGICAL: denies paresthesias or focal tremor HEMATOLOGICAL: +anemia SKIN: left LE venous ulcer and right hip incision PSYCHIATRIC: Unremarkable All other review of systems found to be negative. PHYSICAL EXAMINATION: VITAL SIGNS: Please see below. GENERAL: Pleasant and cooperative. No acute distress. HEENT: PERRL. Extraocular movements intact. Clear conjunctiva CARDIOVASCULAR: Regular rate and rhythm. No murmurs, rubs, or gallops LUNGS: Clear to auscultation bilaterally. No wheezes. No rhonchi ABDOMEN: Soft, nontender, nondistended. Positive bowel sounds. Normal active bowel sounds NEUROLOGICAL: Alert and oriented times three. Cranial nerves II through XII grossly intact. Sensation grossly intact EXTREMITIES: 5\5 strength bilateral upper extremities. >3\5 strength right lower extremity )limited due to recent surgery) 5/5 strength in left lower extremity. mild bilat LE edema SKIN: right hip incision with dermabond c/d/i, left LE ulcer with granulation tissue, no induration, no exudate ASSESSMENT:85-year-old F with past medical history of hypothyroidism who presents status post fall with right hp fracture PLAN: 1. rehab- PT/OT advance gait and ADls, strengthen/stretch/maintain ROM all 4 limbs-ambulating with RW 2. Ortho- s/p right hip ORIF, WBAT- ortho consulted 3. Cardiac- HTN c/u home meds, medicine consulted to assist in overall management 4. Resp- encourage incentive spirometry, monitor for infection 5. Endo- hx of hypothryoidsim c/u synthroid 6. DVT ppx- ASa 81mg BID 7. VAsc- hx of LLE venous stasis ulcer, c/u every other day wound dressing changes, f/u Dr. Mendieta 8. Pain- tylenol, low dose gabapentin, oxycodone prn 9. GI ppx- protonix 10. Psych- patient reporting she feels less anxious 11. Dispo- TBD Allergies Coded Allergies: Penicillins (Verified Allergy, Unknown, unknown, 04/24/19) Vital Signs Vital Signs Date Time Temp Pulse Resp B/P (MAP) Pulse Ox O2 Delivery O2 Flow Rate FiO2 04/04/20 08:54 151/74 04/04/20 05:39 97.9 73 18 95 Room Air Laboratory Data CBC/BMP Laboratory Tests 04/04/20 09:01 Labs 24H Laboratory Tests 2 04/04/20 09:01: Immature Granulocyte % (Auto) 1.0, Neutrophils (%) (Auto) 75.1H, Lymphocytes (%) (Auto) 16.8L, Monocytes (%) (Auto) 4.6, Eosinophils (%) (Auto) 2.0, Basophils (%) (Auto) 0.5, Neutrophils # (Auto) 7.1, Lymphocytes # (Auto) 1.6, Monocytes # (Auto) 0.4, Eosinophils # (Auto) 0.2, Basophils # (Auto) 0.1, Nucleated Red Blood Cells % (auto) 0.0, Anion Gap 6L, Glomerular Filtration Rate > 60.0, Calcium Level 8.7L Current Medications Current Medications Current Medications Medications (Trade) Dose Ordered Sig/Deja Route PRN Reason Start Time Stop Time Status Last Admin Dose Admin Acetaminophen (Tylenol Tab) 1,000 mg TID PO 03/28/20 16:00 04/04/20 08:54 Amlodipine Besylate (Norvasc) 5 mg DAILY PO 03/29/20 09:00 04/04/20 08:54 Aspirin (Ecotrin) 81 mg BID PO 03/28/20 21:00 04/04/20 08:53 Bisoprolol Fumarate (Zebeta) 5 mg DAILY PO 03/29/20 09:00 04/04/20 08:54 Docusate Sodium (Colace) 100 mg BID PO 03/28/20 21:00 04/04/20 08:53 Ferrous Gluconate (Fergon) 324 mg DAILY PO 03/29/20 09:00 03/30/20 12:06 DC 03/30/20 08:22 Ferrous Sulfate (Ferrous Sulfate) 325 mg BID PO 03/29/20 09:00 04/04/20 08:53 Gabapentin (Neurontin) 100 mg TID PO 03/28/20 16:00 04/04/20 08:53 Levothyroxine Sodium (Synthroid) 25 mcg DAILY@06 PO 03/29/20 06:00 04/04/20 05:20 Olmesartan (Benicar) 40 mg DAILY PO 03/29/20 09:00 04/04/20 08:54 Oxycodone HCl (Roxicodone, Oxyir) 5 mg Q4HP PRN PO PAIN 03/28/20 15:30 04/04/20 10:00 DC Pantoprazole Sodium (Protonix) 40 mg DAILY PO 03/28/20 09:00 04/04/20 08:53 Propranolol HCl (Inderal) 10 mg BID PO 03/30/20 14:00 03/30/20 13:42 DC Senna (Senokot) 1 tab QHS PO 03/28/20 21:00 03/31/20 21:29 Vitamin D (Vitamin D) 2,000 units DAILY PO 03/28/20 09:00 04/04/20 08:53 CARINA KEVIN MD Apr 04, 2020 13:11
--- NOTE | 2020-04-04 13:13 | IPNPDOC ---
PM&R Progress Note DATE OF SERVICE: Apr 04, 2020 Wet Process Assistant Head Miller Progress Note Subjective: Patient reporting she feels her right leg is more swollen today and agreed to have it acewrapped and elevated. REVIEW OF SYSTEMS: The following is a completed review of systems and has been reviewed. Review of systems otherwise unremarkable. PAIN: Patient self reports minimal pain EYES: No recent vision changes EARS, NOSE, & THROAT: No throat pain, or dysphagia, or rhinorrhea CARDIOVASCULAR: Denies chest pain or palpitations PULMONARY: Denies shortness of breath GASTROINTESTINAL: Denies constipation/diarrhea GENITOURINARY: denies dysuria MUSCULOSKELETAL: RLE hip fracture NEUROLOGICAL: denies paresthesias or focal tremor HEMATOLOGICAL: +anemia SKIN: left LE venous ulcer and right hip incision PSYCHIATRIC: Unremarkable All other review of systems found to be negative. PHYSICAL EXAMINATION: VITAL SIGNS: Please see below. GENERAL: Pleasant and cooperative. No acute distress. HEENT: PERRL. Extraocular movements intact. Clear conjunctiva CARDIOVASCULAR: Regular rate and rhythm. No murmurs, rubs, or gallops LUNGS: Clear to auscultation bilaterally. No wheezes. No rhonchi ABDOMEN: Soft, nontender, nondistended. Positive bowel sounds. Normal active bowel sounds NEUROLOGICAL: Alert and oriented times three. Cranial nerves II through XII gr ossly intact. Sensation grossly intact EXTREMITIES: 5\5 strength bilateral upper extremities. >3\5 strength right lower extremity )limited due to recent surgery) 5/5 strength in left lower extremity. mild bilat LE R>L edema (-) Hmonan's SKIN: right hip incision with dermabond c/d/i, left LE ulcer with granulation tissue, no induration, no exudate ASSESSMENT:85-year-old F with past medical history of hypothyroidism who presents status post fall with right hp fracture PLAN: 1. rehab- PT/OT advance gait and ADls, strengthen/stretch/maintain ROM all 4 limbs-ambulating with RW 2. Ortho- s/p right hip ORIF, WBAT- ortho consulted -RLE swelling with negative Homans, acewrap and elevate 3. Cardiac- HTN c/u home meds, medicine consulted to assist in overall management 4. Resp- encourage incentive spirometry, monitor for infection 5. Endo- hx of hypothryoidsim c/u synthroid 6. DVT ppx- ASa 81mg BID 7. VAsc- hx of LLE venous stasis ulcer, c/u every other day wound dressing changes, f/u Dr. Mendieta 8. Pain- tylenol, low dose gabapentin, oxycodone prn 9. GI ppx- protonix 10. Psych- patient reporting she feels less anxious 11. HYpokalemia- k=3.4 will order 40meq and recheck BMP tomorrow 11. Dispo- TBD Allergies Coded Allergies: Penicillins (Verified Allergy, Unknown, unknown, 04/24/19) Vital Signs Vital Signs Date Time Temp Pulse Resp B/P (MAP) Pulse Ox O2 Delivery O2 Flow Rate FiO2 04/04/20 08:54 151/74 04/04/20 05:39 97.9 73 18 95 Room Air Laboratory Data CBC/BMP Laboratory Tests 04/04/20 09:01 Labs 24H Laboratory Tests 2 04/04/20 09:01: Immature Granulocyte % (Auto) 1.0, Neutrophils (%) (Auto) 75.1H, Lymphocytes (%) (Auto) 16.8L, Monocytes (%) (Auto) 4.6, Eosinophils (%) (Auto) 2.0, Basophils (%) (Auto) 0.5, Neutrophils # (Auto) 7.1, Lymphocytes # (Auto) 1.6, Monocytes # (Auto) 0.4, Eosinophils # (Auto) 0.2, Basophils # (Auto) 0.1, Nucleated Red Blood Cells % (auto) 0.0, Anion Gap 6L, Glomerular Filtration Rate > 60.0, Calcium Level 8.7L Current Medications Current Medications Current Medications Medications (Trade) Dose Ordered Sig/Deja Route PRN Reason Start Time Stop Time Status Last Admin Dose Admin Acetaminophen (Tylenol Tab) 1,000 mg TID PO 03/28/20 16:00 04/04/20 08:54 Amlodipine Besylate (Norvasc) 5 mg DAILY PO 03/29/20 09:00 04/04/20 08:54 Aspirin (Ecotrin) 81 mg BID PO 03/28/20 21:00 04/04/20 08:53 Bisoprolol Fumarate (Zebeta) 5 mg DAILY PO 03/29/20 09:00 04/04/20 08:54 Docusate Sodium (Colace) 100 mg BID PO 03/28/20 21:00 04/04/20 08:53 Ferrous Gluconate (Fergon) 324 mg DAILY PO 03/29/20 09:00 03/30/20 12:06 DC 03/30/20 08:22 Ferrous Sulfate (Ferrous Sulfate) 325 mg BID PO 03/29/20 09:00 04/04/20 08:53 Gabapentin (Neurontin) 100 mg TID PO 03/28/20 16:00 04/04/20 08:53 Levothyroxine Sodium (Synthroid) 25 mcg DAILY@06 PO 03/29/20 06:00 04/04/20 05:20 Olmesartan (Benicar) 40 mg DAILY PO 03/29/20 09:00 04/04/20 08:54 Oxycodone HCl (Roxicodone, Oxyir) 5 mg Q4HP PRN PO PAIN 03/28/20 15:30 04/04/20 10:00 DC Pantoprazole Sodium (Protonix) 40 mg DAILY PO 03/28/20 09:00 04/04/20 08:53 Propranolol HCl (Inderal) 10 mg BID PO 03/30/20 14:00 03/30/20 13:42 DC Senna (Senokot) 1 tab QHS PO 03/28/20 21:00 03/31/20 21:29 Vitamin D (Vitamin D) 2,000 units DAILY PO 03/28/20 09:00 04/04/20 08:53 CARINA KEVIN MD Apr 04, 2020 13:13
[2020-04-04 14:00] VITALS: BP 134/75
[2020-04-04] MEDS: SENNA 8.6 MG TAB (SENOKOT) PO SCH (20:06)
[2020-04-04 20:20] VITALS: BP 144/69
[2020-04-05] MEDS: LEVOTHYROXINE 25MCG TABLET (0.025MG) PO SCH (05:34)
[2020-04-05 05:45] VITALS: BP 178/84
[2020-04-05 07:22] LABS: BLOOD UREA NITROGEN 21 MG/DL (7-18); CALCIUM LEVEL 8.4 MG/DL (8.8-10.2); CARBON DIOXIDE LEVEL 32 MEQ/L (21-32); CHLORIDE LEVEL 108 MEQ/L (98-107); CREATININE FOR GFR 0.48 MG/DL (0.55-1.30); GLOMERULAR FILTRATION RATE > 60.0 (>32); GLUCOSE, FASTING 84 MG/DL (70-100); POTASSIUM SERUM 4.2 MEQ/L (3.5-5.1); SODIUM LEVEL 143 MEQ/L (136-145)
[2020-04-05] MEDS: REMEDY PHYTOPLEX Z-GUARD PASTE 113GM TUBE (FROM STOREROOM PRODUCT) TOP SCH ×3 (09:00→20:14)
[2020-04-05] MEDS: VITAMIN D 1,000 INTERNATIONAL UNITS TABLET PO SCH (09:29)
[2020-04-05] MEDS: PANTOPRAZOLE 40MG TAB (PROTONIX) PO SCH (09:29)
[2020-04-05] MEDS: FERROUS SULFATE 325MG TAB PO SCH ×2 (09:29→20:13)
[2020-04-05] MEDS: ASPIRIN 81 MG ENTERIC TAB PO SCH ×2 (09:29→20:13)
[2020-04-05] MEDS: DOCUSATE SODIUM 100 MG CAP PO SCH ×2 (09:29→20:13)
[2020-04-05] MEDS: GABAPENTIN 100 MG CAP PO SCH ×3 (09:30→20:13)
[2020-04-05] MEDS: amLODIPine 5 MG TAB PO SCH (09:30)
[2020-04-05] MEDS: bisoproloL fumarate 5 MG TAB PO SCH (09:30)
[2020-04-05] MEDS: OLMESARTAN MEDOXOMIL 20 MG TAB (BENICAR) PO SCH (09:30)
[2020-04-05] MEDS: ACETAMINOPHEN 500 MG TAB PO SCH ×3 (09:30→20:13)
[2020-04-05 14:00] VITALS: BP 154/70
[2020-04-05 20:02] VITALS: BP 133/62
[2020-04-05] MEDS: SENNA 8.6 MG TAB (SENOKOT) PO SCH (20:13)
[2020-04-06 05:11] VITALS: BP 150/72
[2020-04-06] MEDS: LEVOTHYROXINE 25MCG TABLET (0.025MG) PO SCH (05:32)
[2020-04-06 07:25] LABS: HEMATOCRIT 33.1 % (36.0-47.0); HEMOGLOBIN 9.9 g/dl (12.0-15.5); MEAN CORPUSCULAR VOLUME 83.6 fl (80.0-96.0); RED BLOOD COUNT 3.96 10^6/uL (4.00-5.40); WHITE BLOOD COUNT 7.2 10^3/uL (4.0-10.0)
[2020-04-06 07:26] LABS: BASO # 0.1 10^3/uL (0.0-0.2); BASO % 0.8 % (0.0-1.0); EOS # 0.2 10^3/uL (0.0-0.5); EOS % 2.6 % (0.0-3.0); LYMPH # 1.3 10^3/uL (1.5-5.0); LYMPH % 18.7 % (24.0-44.0); MEAN CORPUSCULAR HGB CONC 29.9 g/dl (32.0-36.5); MONO # 0.6 10^3/uL (0.0-0.8); MONO % 8.5 % (0.0-5.0); NEUTROPHILS # 4.9 10^3/uL (1.5-8.5); NEUTROPHILS % 68.7 % (36.0-66.0); PLATELET COUNT, AUTOMATED 408 10^3/uL (150-450)
[2020-04-06 07:49] LABS: BLOOD UREA NITROGEN 19 MG/DL (7-18); CALCIUM LEVEL 8.8 MG/DL (8.8-10.2); CARBON DIOXIDE LEVEL 29 MEQ/L (21-32); CHLORIDE LEVEL 108 MEQ/L (98-107); CREATININE FOR GFR 0.58 MG/DL (0.55-1.30); GLOMERULAR FILTRATION RATE > 60.0 (>32); GLUCOSE, FASTING 82 MG/DL (70-100); POTASSIUM SERUM 4.2 MEQ/L (3.5-5.1); SODIUM LEVEL 142 MEQ/L (136-145)
[2020-04-06] MEDS: FERROUS SULFATE 325MG TAB PO SCH ×2 (10:06→21:27)
[2020-04-06] MEDS: ASPIRIN 81 MG ENTERIC TAB PO SCH ×2 (10:06→21:27)
[2020-04-06] MEDS: amLODIPine 5 MG TAB PO SCH (10:07)
[2020-04-06] MEDS: GABAPENTIN 100 MG CAP PO SCH ×3 (10:07→21:27)
[2020-04-06] MEDS: DOCUSATE SODIUM 100 MG CAP PO SCH ×2 (10:07→21:27)
[2020-04-06] MEDS: PANTOPRAZOLE 40MG TAB (PROTONIX) PO SCH (10:07)
[2020-04-06] MEDS: ACETAMINOPHEN 500 MG TAB PO SCH ×3 (10:08→21:27)
[2020-04-06] MEDS: VITAMIN D 1,000 INTERNATIONAL UNITS TABLET PO SCH (10:08)
[2020-04-06] MEDS: bisoproloL fumarate 5 MG TAB PO SCH (10:08)
[2020-04-06] MEDS: OLMESARTAN MEDOXOMIL 20 MG TAB (BENICAR) PO SCH (10:09)
[2020-04-06] MEDS: REMEDY PHYTOPLEX Z-GUARD PASTE 113GM TUBE (FROM STOREROOM PRODUCT) TOP SCH ×3 (13:44→21:00)
[2020-04-06 14:00] VITALS: BP 159/69
--- NOTE | 2020-04-06 14:29 | IPNPDOC ---
PM&R Progress Note DATE OF SERVICE: Apr 05, 2020 Mainframe Applications Developer Progress Note Subjective: Patient reporting she feels well and has no complaints. REVIEW OF SYSTEMS: The following is a completed review of systems and has been reviewed. Review of systems otherwise unremarkable. PAIN: Patient self reports minimal pain EYES: No recent vision changes EARS, NOSE, & THROAT: No throat pain, or dysphagia, or rhinorrhea CARDIOVASCULAR: Denies chest pain or palpitations PULMONARY: Denies shortness of breath GASTROINTESTINAL: Denies constipation/diarrhea GENITOURINARY: denies dysuria MUSCULOSKELETAL: RLE hip fracture NEUROLOGICAL: denies paresthesias or focal tremor HEMATOLOGICAL: +anemia SKIN: left LE venous ulcer and right hip incision PSYCHIATRIC: Unremarkable All other review of systems found to be negative. PHYSICAL EXAMINATION: VITAL SIGNS: Please see below. GENERAL: Pleasant and cooperative. No acute distress. HEENT: PERRL. Extraocular movements intact. Clear conjunctiva CARDIOVASCULAR: Regular rate and rhythm. No murmurs, rubs, or gallops LUNGS: Clear to auscultation bilaterally. No wheezes. No rhonchi ABDOMEN: Soft, nontender, nondistended. Positive bowel sounds. Normal active bowel sounds NEUROLOGICAL: Alert and oriented times three. Cranial nerves II through XII grossly intact. Sensation grossly intact EXTREMITIES: 5\5 strength bilateral upper extremities. >3\5 strength right lower extremity )limited due to recent surgery) 5/5 strength in left lower extremity. mild bilat LE R>L edema (-) Hmonan's SKIN: right hip incision with dermabond c/d/i, left LE ulcer with granulation tissue, no induration, no exudate ASSESSMENT:85-year-old F with past medical history of hypothyroidism who presents status post fall with right hp fracture PLAN: 1. rehab- PT/OT advance gait and ADls, strengthen/stretch/maintain ROM all 4 limbs-ambulating with RW, approaching room privileges 2. Ortho- s/p right hip ORIF, WBAT- ortho consulted -RLE swelling with negative Homans, acewrap and elevate 3. Cardiac- HTN c/u home meds, medicine consulted to assist in overall management 4. Resp- encourage incentive spirometry, monitor for infection 5. Endo- hx of hypothyroidism c/u synthroid 6. DVT ppx- ASa 81mg BID 7. VAsc- hx of LLE venous stasis ulcer, c/u every other day wound dressing changes, f/u Dr. Mendieta 8. Pain- tylenol, low dose gabapentin, oxycodone prn 9. GI ppx- protonix 10. Psych- patient reporting she feels less anxious 11. HYpokalemia-resolved 11. Dispo- 04-08-20 to home Allergies Coded Allergies: Penicillins (Verified Allergy, Unknown, unknown, 04/24/19) Vital Signs Vital Signs Date Time Temp Pulse Resp B/P (MAP) Pulse Ox O2 Delivery O2 Flow Rate FiO2 04/06/20 14:00 97.7 67 20 159/69 (99) 96 Room Air Laboratory Data CBC/BMP Laboratory Tests 04/06/20 07:00 Labs 24H Laboratory Tests 2 04/06/20 07:00: Immature Granulocyte % (Auto) 0.7, Neutrophils (%) (Auto) 68.7H, Lymphocytes (%) (Auto) 18.7L, Monocytes (%) (Auto) 8.5H, Eosinophils (%) (Auto) 2.6, Basophils (%) (Auto) 0.8, Neutrophils # (Auto) 4.9, Lymphocytes # (Auto) 1.3L, Monocytes # (Auto) 0.6, Eosinophils # (Auto) 0.2, Basophils # (Auto) 0.1, Nucleated Red Blood Cells % (auto) 0.0, Anion Gap 5L, Glomerular Filtration Rate > 60.0, Calcium Level 8.8 Current Medications Current Medications Current Medications Medications (Trade) Dose Ordered Sig/Deja Route PRN Reason Start Time Stop Time Status Last Admin Dose Admin Acetaminophen (Tylenol Tab) 1,000 mg TID PO 03/28/20 16:00 04/06/20 10:08 Amlodipine Besylate (Norvasc) 5 mg DAILY PO 03/29/20 09:00 04/06/20 10:07 Aspirin (Ecotrin) 81 mg BID PO 03/28/20 21:00 04/06/20 10:06 Bisoprolol Fumarate (Zebeta) 5 mg DAILY PO 03/29/20 09:00 04/06/20 10:08 Docusate Sodium (Colace) 100 mg BID PO 03/28/20 21:00 04/06/20 10:07 Ferrous Gluconate (Fergon) 324 mg DAILY PO 03/29/20 09:00 03/30/20 12:06 DC 03/30/20 08:22 Ferrous Sulfate (Ferrous Sulfate) 325 mg BID PO 03/29/20 09:00 04/06/20 10:06 Gabapentin (Neurontin) 100 mg TID PO 03/28/20 16:00 04/06/20 10:07 Levothyroxine Sodium (Synthroid) 25 mcg DAILY@06 PO 03/29/20 06:00 04/06/20 05:32 Olmesartan (Benicar) 40 mg DAILY PO 03/29/20 09:00 04/06/20 10:09 Oxycodone HCl (Roxicodone, Oxyir) 5 mg Q4HP PRN PO PAIN 03/28/20 15:30 04/04/20 10:00 DC Pantoprazole Sodium (Protonix) 40 mg DAILY PO 03/28/20 09:00 04/06/20 10:07 Propranolol HCl (Inderal) 10 mg BID PO 03/30/20 14:00 03/30/20 13:42 DC Senna (Senokot) 1 tab QHS PO 03/28/20 21:00 04/05/20 20:13 Vitamin D (Vitamin D) 2,000 units DAILY PO 03/28/20 09:00 04/06/20 10:08 CARINA KEVIN MD Apr 06, 2020 14:29
--- NOTE | 2020-04-06 14:30 | IPNPDOC ---
PM&R Progress Note DATE OF SERVICE: Apr 06, 2020 Guide Alpine Progress Note Subjective: Patient stating she feels good and is ready to go home soon. REVIEW OF SYSTEMS: The following is a completed review of systems and has been reviewed. Review of systems otherwise unremarkable. PAIN: Patient self reports minimal pain EYES: No recent vision changes EARS, NOSE, & THROAT: No throat pain, or dysphagia, or rhinorrhea CARDIOVASCULAR: Denies chest pain or palpitations PULMONARY: Denies shortness of breath GASTROINTESTINAL: Denies constipation/diarrhea GENITOURINARY: denies dysuria MUSCULOSKELETAL: RLE hip fracture NEUROLOGICAL: denies paresthesias or focal tremor HEMATOLOGICAL: +anemia SKIN: left LE venous ulcer and right hip incision PSYCHIATRIC: Unremarkable All other review of systems found to be negative. PHYSICAL EXAMINATION: VITAL SIGNS: Please see below. GENERAL: Pleasant and cooperative. No acute distress. HEENT: PERRL. Extraocular movements intact. Clear conjunctiva CARDIOVASCULAR: Regular rate and rhythm. No murmurs, rubs, or gallops LUNGS: Clear to auscultation bilaterally. No wheezes. No rhonchi ABDOMEN: Soft, nontender, nondistended. Positive bowel sounds. Normal active bowel sounds NEUROLOGICAL: Alert and oriented times three. Cranial nerves II through XII grossly intact. Sensation grossly intact EXTREMITIES: 5\5 strength bilateral upper extremities. >3\5 strength right lower extremity )limited due to recent surgery) 5/5 strength in left lower extremity. mild bilat LE R>L edema (-) Hmonan's SKIN: right hip incision with dermabond c/d/i, left LE ulcer with granulation tissue, no induration, no exudate ASSESSMENT:85-year-old F with past medical history of hypothyroidism who presents status post fall with right hip fracture PLAN: 1. rehab- PT/OT advance gait and ADls, strengthen/stretch/maintain ROM all 4 limbs-ambulating with RW, approaching room privileges 2. Ortho- s/p right hip ORIF, WBAT- ortho consulted -RLE swelling with negative Homans, acewrap and elevate 3. Cardiac- HTN c/u home meds, medicine consulted to assist in overall management 4. Resp- encourage incentive spirometry, monitor for infection 5. Endo- hx of hypothyroidism c/u synthroid 6. DVT ppx- ASa 81mg BID 7. VAsc- hx of LLE venous stasis ulcer, c/u every other day wound dressing changes, f/u Dr. Mendieta 8. Pain- tylenol, low dose gabapentin, oxycodone prn 9. GI ppx- protonix 10. Psych- patient reporting she feels less anxious 11. HYpokalemia-resolved 11. Dispo- 04-11-20 to home when her son can be available Allergies Coded Allergies: Penicillins (Verified Allergy, Unknown, unknown, 04/24/19) Vital Signs Vital Signs Date Time Temp Pulse Resp B/P (MAP) Pulse Ox O2 Delivery O2 Flow Rate FiO2 04/06/20 14:00 97.7 67 20 159/69 (99) 96 Room Air Laboratory Data CBC/BMP Laboratory Tests 04/06/20 07:00 Labs 24H Laboratory Tests 2 04/06/20 07:00: Immature Granulocyte % (Auto) 0.7, Neutrophils (%) (Auto) 68.7H, Lymphocytes (%) (Auto) 18.7L, Monocytes (%) (Auto) 8.5H, Eosinophils (%) (Auto) 2.6, Basophils (%) (Auto) 0.8, Neutrophils # (Auto) 4.9, Lymphocytes # (Auto) 1.3L, Monocytes # (Auto) 0.6, Eosinophils # (Auto) 0.2, Basophils # (Auto) 0.1, Nucleated Red Blo od Cells % (auto) 0.0, Anion Gap 5L, Glomerular Filtration Rate > 60.0, Calcium Level 8.8 Current Medications Current Medications Current Medications Medications (Trade) Dose Ordered Sig/Deja Route PRN Reason Start Time Stop Time Status Last Admin Dose Admin Acetaminophen (Tylenol Tab) 1,000 mg TID PO 03/28/20 16:00 04/06/20 10:08 Amlodipine Besylate (Norvasc) 5 mg DAILY PO 03/29/20 09:00 04/06/20 10:07 Aspirin (Ecotrin) 81 mg BID PO 03/28/20 21:00 04/06/20 10:06 Bisoprolol Fumarate (Zebeta) 5 mg DAILY PO 03/29/20 09:00 04/06/20 10:08 Docusate Sodium (Colace) 100 mg BID PO 03/28/20 21:00 04/06/20 10:07 Ferrous Gluconate (Fergon) 324 mg DAILY PO 03/29/20 09:00 03/30/20 12:06 DC 03/30/20 08:22 Ferrous Sulfate (Ferrous Sulfate) 325 mg BID PO 03/29/20 09:00 04/06/20 10:06 Gabapentin (Neurontin) 100 mg TID PO 03/28/20 16:00 04/06/20 10:07 Levothyroxine Sodium (Synthroid) 25 mcg DAILY@06 PO 03/29/20 06:00 04/06/20 05:32 Olmesartan (Benicar) 40 mg DAILY PO 03/29/20 09:00 04/06/20 10:09 Oxycodone HCl (Roxicodone, Oxyir) 5 mg Q4HP PRN PO PAIN 03/28/20 15:30 04/04/20 10:00 DC Pantoprazole Sodium (Protonix) 40 mg DAILY PO 03/28/20 09:00 04/06/20 10:07 Propranolol HCl (Inderal) 10 mg BID PO 03/30/20 14:00 03/30/20 13:42 DC Senna (Senokot) 1 tab QHS PO 03/28/20 21:00 04/05/20 20:13 Vitamin D (Vitamin D) 2,000 units DAILY PO 03/28/20 09:00 04/06/20 10:08 CARINA KEVIN MD Apr 06, 2020 14:30
[2020-04-06 20:00] VITALS: BP 130/63
[2020-04-06] MEDS: SENNA 8.6 MG TAB (SENOKOT) PO SCH (21:27)
[2020-04-07] MEDS: LEVOTHYROXINE 25MCG TABLET (0.025MG) PO SCH (05:27)
[2020-04-07 06:00] VITALS: BP 142/70
[2020-04-07] MEDS ORDERED: ECOT81TA5 PO (06:26)
[2020-04-07] MEDS: REMEDY PHYTOPLEX Z-GUARD PASTE 113GM TUBE (FROM STOREROOM PRODUCT) TOP SCH (09:00)
[2020-04-07] MEDS: bisoproloL fumarate 5 MG TAB PO SCH (09:11)
[2020-04-07] MEDS: ASPIRIN 81 MG ENTERIC TAB PO SCH (09:11)
[2020-04-07] MEDS: FERROUS SULFATE 325MG TAB PO SCH (09:11)
[2020-04-07] MEDS: PANTOPRAZOLE 40MG TAB (PROTONIX) PO SCH (09:12)
[2020-04-07] MEDS: GABAPENTIN 100 MG CAP PO SCH (09:12)
[2020-04-07] MEDS: DOCUSATE SODIUM 100 MG CAP PO SCH (09:12)
[2020-04-07] MEDS: VITAMIN D 1,000 INTERNATIONAL UNITS TABLET PO SCH (09:12)
[2020-04-07] MEDS: ACETAMINOPHEN 500 MG TAB PO SCH (09:13)
[2020-04-07] MEDS: OLMESARTAN MEDOXOMIL 20 MG TAB (BENICAR) PO SCH (09:13)
[2020-04-07 09:14] VITALS: BP 142/70
[2020-04-07] MEDS: amLODIPine 5 MG TAB PO SCH (09:14)
[2020-04-09] MEDS ORDERED: GABAPENTIN 100 MG CAP ONE ×3 (04:30→08:03)
[2020-04-09] MEDS ORDERED: ACETAMINOPHEN 500 MG TAB ONE ×3 (04:30→08:03)
[2020-04-09] MEDS ORDERED: VITAMIN D 1,000 INTERNATIONAL UNITS TABLET ONE (05:23)
[2020-04-09] MEDS ORDERED: DOCUSATE SODIUM 100 MG CAP ONE ×2 (05:23→08:03)
[2020-04-09] MEDS ORDERED: OLMESARTAN MEDOXOMIL 20 MG TAB (BENICAR) ONE ×2 (05:23→11:30)
[2020-04-09] MEDS ORDERED: LEVOTHYROXINE 25MCG TABLET (0.025MG) ONE (05:23)
[2020-04-09] MEDS ORDERED: PANTOPRAZOLE 40MG TAB (PROTONIX) ONE (05:23)
[2020-04-09] MEDS ORDERED: amLODIPine 5 MG TAB ONE (05:23)
[2020-04-09] MEDS ORDERED: bisoproloL fumarate 5 MG TAB ONE (05:23)
[2020-04-09] MEDS ORDERED: ASPIRIN 81 MG ENTERIC TAB ONE ×2 (05:23→08:03)
[2020-04-09] MEDS ORDERED: FERROUS SULFATE 325MG TAB ONE ×2 (05:23→08:03)
[2020-04-09] MEDS ORDERED: SENNA 8.6 MG TAB (SENOKOT) ONE (08:03)
[2020-04-10] MEDS ORDERED: DOCUSATE SODIUM 100 MG CAP ONE ×2 (04:21→05:25)
[2020-04-10] MEDS ORDERED: ACETAMINOPHEN 500 MG TAB ONE ×2 (04:21→05:25)
[2020-04-10] MEDS ORDERED: FERROUS SULFATE 325MG TAB ONE ×2 (04:21→05:25)
[2020-04-10] MEDS ORDERED: GABAPENTIN 100 MG CAP ONE ×3 (04:21→05:25)
[2020-04-10] MEDS ORDERED: amLODIPine 5 MG TAB ONE (05:25)
[2020-04-10] MEDS ORDERED: VITAMIN D 1,000 INTERNATIONAL UNITS TABLET ONE (05:25)
[2020-04-10] MEDS ORDERED: LEVOTHYROXINE 25MCG TABLET (0.025MG) ONE (05:25)
[2020-04-10] MEDS ORDERED: OLMESARTAN MEDOXOMIL 20 MG TAB (BENICAR) ONE (05:25)
[2020-04-10] MEDS ORDERED: PANTOPRAZOLE 40MG TAB (PROTONIX) ONE (05:25)
[2020-04-10] MEDS ORDERED: bisoproloL fumarate 5 MG TAB ONE (05:25)
[2020-04-10] MEDS ORDERED: ASPIRIN 81 MG ENTERIC TAB ONE ×2 (05:25→08:20)
[2020-04-10] MEDS ORDERED: SENNA 8.6 MG TAB (SENOKOT) ONE (08:20)
[2020-04-10] MEDS ORDERED: ACETYLCYSTEINE 10% 30 ML VIAL ONE (08:20)
[2020-04-11] MEDS ORDERED: LevoFLOXacin 250 MG TABLET ONE (06:22)
[2020-04-11] MEDS ORDERED: DOCUSATE SODIUM 100 MG CAP ONE (08:35)
[2020-04-11] MEDS ORDERED: PANTOPRAZOLE 40MG TAB (PROTONIX) ONE (08:35)
[2020-04-11] MEDS ORDERED: VITAMIN D 1,000 INTERNATIONAL UNITS TABLET ONE (08:35)
[2020-04-11] MEDS ORDERED: ACETAMINOPHEN 500 MG TAB ONE (08:35)
[2020-04-11] MEDS ORDERED: FERROUS SULFATE 325MG TAB ONE (08:35)
[2020-04-11] MEDS ORDERED: GABAPENTIN 100 MG CAP ONE (08:35)
[2020-04-11] MEDS ORDERED: amLODIPine 5 MG TAB ONE (08:35)
[2020-04-11] MEDS ORDERED: OLMESARTAN MEDOXOMIL 20 MG TAB (BENICAR) ONE (08:35)
[2020-04-11] MEDS ORDERED: bisoproloL fumarate 5 MG TAB ONE (08:35)
[2020-04-11] MEDS ORDERED: ASPIRIN 81 MG ENTERIC TAB ONE (08:35)
--- NOTE | 2020-05-04 15:21 | IPNPDOC ---
PM&R Progress Note DATE OF SERVICE: Apr 07, 2020 Process Improvement Consultant Progress Note Subjective: Patient stating she feels good and is ready for room privileges. REVIEW OF SYSTEMS: The following is a completed review of systems and has been reviewed. Review of systems otherwise unremarkable. PAIN: Patient self reports minimal pain EYES: No recent vision changes EARS, NOSE, & THROAT: No throat pain, or dysphagia, or rhinorrhea CARDIOVASCULAR: Denies chest pain or palpitations PULMONARY: Denies shortness of breath GASTROINTESTINAL: Denies constipation/diarrhea GENITOURINARY: denies dysuria MUSCULOSKELETAL: RLE hip fracture NEUROLOGICAL: denies paresthesias or focal tremor HEMATOLOGICAL: +anemia SKIN: left LE venous ulcer and right hip incision PSYCHIATRIC: Unremarkable All other review of systems found to be negative. PHYSICAL EXAMINATION: VITAL SIGNS: Please see below. GENERAL: Pleasant and cooperative. No acute distress. HEENT: PERRL. Extraocular movements intact. Clear conjunctiva CARDIOVASCULAR: Regular rate and rhythm. No murmurs, rubs, or gallops LUNGS: Clear to auscultation bilaterally. No wheezes. No rhonchi ABDOMEN: Soft, nontender, nondistended. Positive bowel sounds. Normal active bowel sounds NEUROLOGICAL: Alert and oriented times three. Cranial nerves II through XII grossly intact. Sensation grossly intact EXTREMITIES: 5\5 strength bilateral upper extremities. >3\5 strength right lower extremity )limited due to recent surgery) 5/5 strength in left lower extremity. mild bilat LE R>L edema (-) Hmonan's SKIN: right hip incision with dermabond c/d/i, left LE ulcer with granulation tissue, no induration, no exudate ASSESSMENT:85-year-old F with past medical history of hypothyroidism who presents status post fall with right hip fracture PLAN: 1. rehab- PT/OT advance gait and ADls, strengthen/stretch/maintain ROM all 4 limbs-ambulating with RW, room privileges today 2. Ortho- s/p right hip ORIF, WBAT- ortho consulted -RLE swelling with negative Homans, acewrap and elevate 3. Cardiac- HTN c/u home meds, medicine consulted to assist in overall management 4. Resp- encourage incentive spirometry, monitor for infection 5. Endo- hx of hypothyroidism c/u synthroid 6. DVT ppx- ASa 81mg BID 7. VAsc- hx of LLE venous stasis ulcer, c/u every other day wound dressing changes, f/u Dr. Mendieta 8. Pain- tylenol, low dose gabapentin, oxycodone prn 9. GI ppx- protonix 10. Psych- patient reporting she feels less anxious 11. HYpokalemia-resolved 11. Dispo- 04-11-20 to home when her son can be available Allergies Coded Allergies: Penicillins (Verified Allergy, Unknown, unknown, 04/24/19) Current Medications Current Medications Current Medications Medications (Trade) Dose Ordered Sig/Deja Route PRN Reason Start Time Stop Time Status Last Admin Dose Admin Acetaminophen (Tylenol Tab) 1,000 mg TID PO 03/28/20 16:00 04/30/20 13:24 DC 04/07/20 09:13 Amlodipine Besylate (Norvasc) 5 mg DAILY PO 03/29/20 09:00 04/30/20 13:24 DC 04/07/20 09:14 Aspirin (Ecotrin) 81 mg BID PO 03/28/20 21:00 04/30/20 13:24 DC 04/07/20 09:11 Bisoprolol Fumarate (Zebeta) 5 mg DAILY PO 03/29/20 09:00 04/30/20 13:24 DC 04/07/20 09:11 Docusate Sodium (Colace) 100 mg BID PO 03/28/20 21:00 04/30/20 13:24 DC 04/07/20 09:12 Ferrous Gluconate (Fergon) 324 mg DAILY PO 03/29/20 09:00 03/30/20 12:06 DC 03/30/20 08:22 Ferrous Sulfate (Ferrous Sulfate) 325 mg BID PO 03/29/20 09:00 04/30/20 13:24 DC 04/07/20 09:11 Gabapentin (Neurontin) 100 mg TID PO 03/28/20 16:00 04/30/20 13:24 DC 04/07/20 09:12 Levothyroxine Sodium (Synthroid) 25 mcg DAILY@06 PO 03/29/20 06:00 04/30/20 13:24 DC 04/07/20 05:27 Olmesartan (Benicar) 40 mg DAILY PO 03/29/20 09:00 04/30/20 13:24 DC 04/07/20 09:13 Oxycodone HCl (Roxicodone, Oxyir) 5 mg Q4HP PRN PO PAIN 03/28/20 15:30 04/04/20 10:00 DC Pantoprazole Sodium (Protonix) 40 mg DAILY PO 03/28/20 09:00 04/30/20 13:24 DC 04/07/20 09:12 Propranolol HCl (Inderal) 10 mg BID PO 03/30/20 14:00 03/30/20 13:42 DC Senna (Senokot) 1 tab QHS PO 03/28/20 21:00 04/30/20 13:24 DC 04/06/20 21:27 Vitamin D (Vitamin D) 2,000 units DAILY PO 03/28/20 09:00 04/30/20 13:24 DC 04/07/20 09:12 CARINA KEVIN MD May 04, 2020 15:21
--- NOTE | 2020-05-30 11:15 | PMRDS ---
DATE OF ADMISSION: 03/28/2020 DATE OF DISCHARGE: 04/11/2020 CHIEF COMPLAINT/DISCHARGE DIAGNOSIS: Right hip fracture. HISTORY OF PRESENT ILLNESS: 85-year-old female with a past medical history of hypertension, hypothyroidism, peripheral vascular disease with left lower extremity venous stasis ulcer followed by Dr. Mendieta, who fell at home and presented to [facility] ([facility]) Emergency Department (ED) on 03/22/2020 where she was diagnosed with a right hip fracture with x-ray showing there is a comminuted fracture involving the proximal right femur with a predominant intertrochanteric component. She was evaluated by orthopaedics, cleared by medicine, and underwent a right hip open reduction internal fixation (ORIF) on 03/23/2020 which was complicated by postoperative anemia and leukocytosis. She was evaluated by therapy, found to have impairments in mobility and activities of daily living (ADLs) and deemed medically appropriate for discharge to acute rehabilitation unit (ARU) on 03/28/2020. PAST MEDICAL HISTORY: As per history of present illness (HPI). HOSPITAL COURSE: Patient was admitted and enrolled in a comprehensive physical therapy/occupational therapy (PT/OT) program. She received 24-hour nursing supervision and weekly team meetings were held to discuss her progress. Patient was maintained on aspirin 81 mg twice a day for deep venous thrombosis (DVT) prophylaxis. She received every other day wound dressing changes for her left lower extremity venous stasis ulcer and her pain was treated with low dose gabapentin, Tylenol, and oxycodone as needed. Patient had hypokalemia which resolved with oral supplements and she made steady gains in therapy and was deemed medically and functionally stable to return home with some assistance from her son. DISCHARGE MEDICATIONS: As per instructions. FUNCTIONAL HISTORY ON DISCHARGE: Patient was modified independent for ambulation and for all functional transfers and ADLs. Thank you for this referral. JEFFY
== END 2020-04-11 09:30 | disposition home or self-care (01) | DRG 560 ==
LOC: M PM&R 17:00
PROVIDERS: ADMIT Physical Medicine & Rehabilitation; ATTEND Physical Medicine & Rehabilitation
DX: S72.141D Displaced intertrochanteric fracture of right femur, subsequent encounter for closed fracture with routine healing (principal); L97.819 Non-pressure chronic ulcer of other part of right lower leg with unspecified severity; I10 Essential (primary) hypertension; E03.9 Hypothyroidism, unspecified; I73.9 Peripheral vascular disease, unspecified; I87.2 Venous insufficiency (chronic) (peripheral); W19.XXXD Unspecified fall, subsequent encounter; Y92.009 Unspecified place in unspecified non-institutional (private) residence as the place of occurrence of the external cause; R26.89 Other abnormalities of gait and mobility; E87.6 Hypokalemia; D64.9 Anemia, unspecified; Z79.82 Long term (current) use of aspirin; Z79.899 Other long term (current) drug therapy; Z88.0 Allergy status to penicillin

== ENCOUNTER → 2020-12-22 | Outpatient (REF) | payer MEDICARE, MEDICAID ==
[~2020-12-22] MED LIST changes: +ASPI-569 PO; -ASPI81TAEC PO; +ECOT81TA5 PO; +FERR324T21 PO; -FERR325T16 PO
[2020-12-22 17:26] LABS: PERCENT SATURATION 17.7 % (13.2-45.0)
== END ==
LOC: M LAB REF 16:19
PROVIDERS: ATTEND Internal Medicine
DX: D50.9 Iron deficiency anemia, unspecified (principal)

== ENCOUNTER → 2021-02-03 | Outpatient (REF) | payer MEDICARE, MEDICAID | LOC: M LAB REF 16:29 | PROVIDERS: ATTEND Internal Medicine | DX: L03.116 Cellulitis of left lower limb (principal) ==

== ENCOUNTER → 2021-05-29 | Outpatient (CLI) | payer MEDICARE, OTHER ==
--- NOTE | 2021-05-29 14:54 | REP ---
INDICATION: LT LEG VENOUS HTN. COMPARISON: None TECHNIQUE: Real time stanton scale and Duplex Doppler evaluation of the left lower extremity arterial vasculature using linear high frequency transducer. FINDINGS: Duplex doppler interrogation demonstrates biphasic and triphasic waveforms to the tibioperoneal trunk, with monophasic waveforms in the anterior and posterior tibial arteries. The distal anterior and posterior tibial arteries could not be visualized due to overlying wound dressing. There does appear to be approximately 5-1 stenosis of the mid anterior tibial artery, with elevated peak systolic velocity at that location. No other focal stenosis is appreciated. There is mild diffuse plaquing. Incidental note is made of an enlarged lymph node in the left inguinal region 5.1 x 1.8 x 3.3 cm. PSV(cm/sec) Common femoral artery: 135 cm/s Profunda femoris artery: 101 cm/s Proximal superficial femoral artery: 104 cm/s Mid superficial femoral artery: 134 cm/s Distal superficial femoral artery: 132 cm/s Popliteal artery: 104 cm/s Proximal CARLOS: 64 cm/s Tibioperoneal trunk: 106 cm/s Proximal SUPERINTENDENT SYSTEM OPERATION: 75 cm/s Distal SUPERINTENDENT SYSTEM OPERATION: 112 cm/s Distal CARLOS: 297 cm/s IMPRESSION: Mild diffuse plaquing. There are findings compatible with 5-1 stenosis of the mid anterior tibial artery. Enlarged lymph node left inguinal region 5.1 x 1.8 x 3.3 cm. <Electronically signed by Francis Stanton > 05/29/21 [id number]
== END ==
LOC: M RAD 12:27
PROVIDERS: ATTEND Physician Assistant
DX: I87.312 Chronic venous hypertension (idiopathic) with ulcer of left lower extremity (principal); L97.321 Non-pressure chronic ulcer of left ankle limited to breakdown of skin; R59.0 Localized enlarged lymph nodes

== ENCOUNTER → 2021-06-13 | Outpatient (POV) | payer MEDICARE, OTHER ==
[~2021-06-13] VITALS: Ht 157.5 cm; Wt 59.0 kg
[2021-06-13 10:02] VITALS: BP 157/72
--- NOTE | 2021-06-15 10:27 | IRCOV ---
[facility] IR Consult Office Visit IR Consult Office Visit DATE: Jun 13, 2021 REASON FOR CONSULTATION/CHIEF COMPLAINT: Nonhealing ulcer. HISTORY OF PRESENT ILLNESS: 86-year-old female presents today for nonhealing left ankle ulcers. Patient has her son with her and he is the primary provider of all history. Patient does also contribute to her history. Patient describes ulcers on the lateral and medial aspect of the left ankle, which have been there for many many years and do not heal. She gets weeping at the ulcers. She denies any pain at the ulcer site. She denies any problems with her right leg. She states her leg are always swollen with bulging varicose veins. She does wear compression stockings. Her leg swelling is improved by morning and worsen during the day. She walks with a cane. She denies any intermittent claudication or pain with leg elevation. She sleeps in the bed. She denies any rest pain. She has had no prior venous intervention. She denies any prior DVT. She denies chest pain, shortness of breath, orthopnea or paroxysmal nocturnal dyspnea. She is not diabetic and she does not smoke. No prior heart attack or stroke. She endorses a strong family history of varicose veins. ALLERGIES: Please see below. HOME MEDICATIONS: Please see below. PAST MEDICAL HISTORY: Hypertension Hyperlipidemia Venous insufficiency Right wrist fracture Right hip fracture PAST SURGICAL HISTORY: Right hip replacement Cataract surgery FAMILY HISTORY: Varicose veins. SOCIAL HISTORY: Non-smoker. Denies alcohol or drugs. REVIEW OF SYSTEMS: Otherwise negative. PHYSICAL EXAMINATION: VITAL SIGNS: Please see below. GENERAL APPEARANCE: Appears well. Restless and in constant motion and co nstantly itching her skin. HEENT: No scleral icterus. RESPIRATORY: Normal breathing at rest. CARDIOVASCULAR: Normal rate. ABDOMEN: Nontender EXTREMITIES: Left lower extremity: Edema to the knee. Bulging varicose veins. Warm to touch. [place] in color. DP 1+ popliteal 2+ ulcers superficial and nontender over the medial malleolus and lateral malleolus. Motor and sensation intact. Right lower extremity: No edema. Warm and pink. Dorsalis pedis 1+ popliteal 2+. Motor and sensation intact. NEUROLOGICAL: Alert and oriented. PSYCHIATRIC: Appropriate to circumstance. LABORATORY DATA: None recent. Imaging: There is no venous reflux ultrasound study in the system. I personally reviewed the left lower extremity arterial ultrasound performed 05/29/2021. Patent left common femoral, superficial femoral, profunda femoris, popliteal, anterior tibial and posterior tibial arteries. Suggestion of a focal stenosis in the proximal anterior tibial artery. ASSESSMENT/PLAN: 86-year-old female with nonhealing venous ulcers about the ankle associated with an examination consistent with venous hypertension. I have ordered a standing venous reflux study of the left lower extremity to evaluate for saphenous vein incompetency. If she has this, she will be treated with EVLT therapy. On clinical examination and after reviewing her ultrasound, I do not favor an arterial etiology. No further arterial intervention planned at this time. I spent 30 minutes reviewing patient's records, imaging and in consultation with the patient. Thank you for this referral. Cc Juana Castillo PA-C Allergies Coded Allergies: Penicillins (Verified Allergy, Unknown, unknown, 04/24/19) Home Medications Scheduled Aspirin (Aspirin EC), 81 MG PO BID Aspirin (Ecotrin), 81 MG PO BID Bisoprolol Fumarate (Bisoprolol Fumarate), 1 TAB PO DAILY, (Reported) Cholecalciferol (Vitamin D3) (Vitamin D3), 1 TAB PO DAILY, (Reported) Docusate Sodium (Docusate Sodium), 100 MG PO DAILY, (Reported) Ferrous Gluconate (Ferrous Gluconate), 324 MG PO DAILY, (Reported) Levothyroxine Sodium (Levothyroxine Sodium), 25 MCG PO QAM, (Reported) Lidocaine (Lidocaine), 1 PATCH TD QHS Olmesartan Medoxomil (Olmesartan Medoxomil), 40 MG PO DAILY, (Reported) Scheduled PRN Acetaminophen (Acetaminophen), 650 MG PO Q4HP PRN for PAIN Miscellaneous Medications Amlodipine Besylate (Amlodipine Besylate), (Reported) VS, I&O, 24H, Fishbone Vital Signs/I&O Vital Signs Date Time Temp Pulse Resp B/P (MAP) Pulse Ox O2 Delivery O2 Flow Rate FiO2 06/13/21 10:02 98.9 75 18 157/72 (100) 96 Room Air HOMERO LOVE MD Jun 15, 2021 10:27
== END ==
LOC: M IRPOV 09:52
PROVIDERS: ATTEND Radiology Diagnostic Radiology
DX: L97.329 Non-pressure chronic ulcer of left ankle with unspecified severity (principal); I87.2 Venous insufficiency (chronic) (peripheral); I10 Essential (primary) hypertension; E78.5 Hyperlipidemia, unspecified; Z96.1 Presence of intraocular lens; Z96.651 Presence of right artificial knee joint

== ENCOUNTER → 2021-06-20 | Outpatient (CLI) | payer MEDICARE, OTHER ==
--- NOTE | 2021-06-20 15:08 | REP ---
INDICATION: LT LEG VENOUS ULCER COMPARISON: None. TECHNIQUE: Stanton scale and color Doppler evaluation using linear high frequency transducer including reflux evaluation. FINDINGS: Ultrasound examination of the left lower extremity deep venous structures from the common femoral vein through the popliteal vein including duplicated mid superficial femoral vein demonstrates normal compressibility flow and wave patterns in response to respiration and augmentation. There is no evidence for deep venous thrombosis. Contralateral CFV is patent and normal. Reflux noted through the common femoral vein and superficial femoral vein as well as the greater saphenous vein. Proximal greater saphenous vein measures 9 mm diameter with reflux duration 1.8 seconds, mid greater saphenous vein measures 7 mm diameter with reflux duration 2.0 seconds, and distal greater saphenous vein measures 8 mm diameter with reflux duration 2.3 seconds. Multiple varicosities are also identified along the calf extending from the popliteal and distal greater saphenous veins. IMPRESSION: No evidence for deep venous thrombosis. Reflux disease noted as above. <Electronically signed by Alexy Meadows > 06/20/21 [id number]
== END ==
LOC: M RAD 13:32
PROVIDERS: ATTEND Radiology Diagnostic Radiology
DX: I87.312 Chronic venous hypertension (idiopathic) with ulcer of left lower extremity (principal)

== ENCOUNTER → 2021-07-04 | Outpatient (POV) | payer MEDICARE, MEDICAID ==
--- NOTE | 2021-07-06 11:39 | IRPN ---
[facility] IR Progress Note IR Progress Note DATE: Jul 04, 2021 I spoke to Mr. Sree Morrison, son to Ms. Aide Morrison. Mr. Sree Morrison lives in [place] but oversees his mother's medical care. He was also present at the last clinic visit. He requested a telephone discussion before scheduling her EVLT therapy. I spent 15 minutes talking to the patient's son. Imaging: I personally reviewed the patient's left lower extremity venous reflux study performed 06/20/2021. There is a dilated left greater saphenous vein which is freely refluxing. Impression: I discussed EVLT therapy with the patient son. We discussed risks and benefits of the procedure. Patient son says he needs to be in town when this is done, to ensure his mother goes through with the treatment and also that he is there to watch her postoperatively. I have suggested to the son that he discuss the treatment with his mother and if they wish to go ahead with EVLT therapy, to give our office a call. Thank you for this referral. CC Dr. Mendieta Allergies Coded Allergies: Penicillins (Verified Allergy, Unknown, unknown, 04/24/19) HOMERO LOVE MD Jul 06, 2021 11:39
== END ==
LOC: M TMIRPOV 11:46
PROVIDERS: ATTEND Radiology Diagnostic Radiology
DX: I87.2 Venous insufficiency (chronic) (peripheral) (principal); Z88.0 Allergy status to penicillin

== ENCOUNTER → 2021-07-27 | Outpatient (CLI) | payer MEDICARE ==
[~2021-07-27] MED LIST changes: +FURO20TA2 PO; +LIDOCAINE 1% MDV 20ML VIAL As Ordered ONE; +LIDOCAINE 2% MDV 20ML VIAL As Ordered ONE; +MIDAZOLAM INJ 2MG/2ML VIAL (J2250 PER 1MG) As Ordered ONE; +NS 1,000 ML IV SCH; +SERT25TA85 PO; +diphenhydrAMINE 50MG/ML VIAL (J1200) As Ordered ONE; +fentaNYL 100 MCG/2 ML INJECTION (J3010) As Ordered ONE
--- NOTE | 2021-07-27 12:28 | IRHP ---
[facility] IR Pre-Procedure H & P General Date of Service: Jul 27, 2021 Procedure: Same Day Surgery Interval History and Physical I have seen the patient and reviewed last H & P performed within 30 days. There is no significant interval change. History of Present Illness Chief Complaint The patient is a 86-year-old female admitted with a reason for visit of Lt Leg Venous Ulcer. PRE-PROCEDURE DIAGNOSIS: Left leg venous ulcer HEART: Normal rate. LUNGS: Normal breathing at rest. ASA Classification ASA Classification: II-Mild systemic disease, III-Severe systemic dis. Mallampati Score: II NPO: Yes Problems with prior sedation: No Obstructive Sleep Apnea: No Plan moderate sedation Allergies Coded Allergies: tomato (Verified Allergy, Mild, 07/26/21) Penicillins (Verified Allergy, Unknown, unknown, 04/24/19) Home Medications Scheduled Bisoprolol Fumarate (Bisoprolol Fumarate), 5 MG PO DAILY, (Reported) Cholecalciferol (Vitamin D3) (Vitamin D3), 1 TAB PO DAILY, (Reported) Docusate Sodium (Docusate Sodium), 100 MG PO BID, (Reported) Ferrous Gluconate (Ferrous Gluconate), 324 MG PO DAILY, (Reported) Furosemide (Furosemide), 20 MG PO DAILY, (Reported) Levothyroxine Sodium (Levothyroxine Sodium), 25 MCG PO QAM, (Reported) Olmesartan Medoxomil (Olmesartan Medoxomil), 40 MG PO DAILY, (Reported) Sertraline Hcl (Sertraline HCl), 25 MG PO DAILY, (Reported) Scheduled PRN Acetaminophen (Acetaminophen), 650 MG PO Q4HP PRN for PAIN Discontinued Medications Amlodipine Besylate (Amlodipine Besylate), (Reported) Discontinued Reason: Pt states not taking Aspirin (Aspirin EC), 81 MG PO BID Discontinued Reason: Pt states not taking Aspirin (Ecotrin), 81 MG PO BID Discontinued Reason: Pt states not taking Lidocaine (Lidocaine), 1 PATCH TD QHS Discontinued Reason: Pt states not taking VS, I&O, 24H, Fishbone Vital Signs/I&O Vital Signs Date Time Temp Pulse Resp B/P (MAP) Pulse Ox O2 Delivery O2 Flow Rate FiO2 07/27/21 11:21 97.2 76 20 93 Room Air HOMERO LOVE MD Jul 27, 2021 12:28
[2021-07-27 14:00] VITALS: BP 147/68
--- NOTE | 2021-07-27 14:55 | IRPON ---
IR Postoperative Note Date Of Procedure: Jul 27, 2021 Time Of Procedure: 14:49 IR Postoperative Note IR Endovenous laser treatment for leg varicose vein. IR Ultrasound of the left leg. IR Tumescent anesthesia under ultrasound guidance. IR Moderate sedation. Clinical information: Nonhealing left lower extremity venous ulcer. Dilated left leg greater saphenous vein with greater than 0.5 seconds of reflux. Physician: Dr. Floyd. Procedure: The patient was advised of the benefits, risks and alternatives of the procedure and informed consent was obtained. The time-out was performed with verification of the patient's name, MRN, site of procedure and type of procedure to be performed. The patient was positioned in the supine position on the table. The site was prepped and draped in the usual sterile fashion. Moderate sedation was performed by the physician including the presence of an independent trained RN who assisted in monitoring the patient's level of consciousness and physiologic status. Following the administration of fentanyl and Versed , the physician spent 60 minutes of continuous face to face time with the patient. Ultrasound of the left lower extremity demonstrates dilated left greater saphenous vein with greater than 0.5 seconds reflux. The access site was identified with ultrasound and anesthetized with lidocaine. The left greater saphenous vein was accessed under ultrasound guidance at the distal calf, using a micro introducer needle. An 018 cope wire was advanced into the vein. Incision at the access site was made using a scalpel. The needle was removed and an access catheter was advanced over the wire under ultrasound guidance to > 2.5 centimeters from the saphenofemoral junction. The wire was removed and the laser fiber was advanced through the catheter under ultrasound guidance and positioned with the tip located 2.5 cm from the saphenous femoral junction. Tumescent anesthesia was then injected under ultrasound guidance along the entire length of the vein to be treated. Repeat ultrasound of the saphenofemoral junction was used to confirm positioning of the tip of the laser back 2.5 cm from junction. The patient was positioned in Trendelenburg. The laser was then activated and under ultrasound guidance used to laser the left greater saphenous vein back to the access point. Simultaneous manual compression was applied to the treated vein. Treatment: Wattage: 7. Time: 197 seconds. Pullback rate 1 cm every 7 seconds. Total Energy deposited 1379 joules. Treatment 50 joules per centimeter of vein. The fiber, catheter and sheath were removed, pressure held and hemostasis achieved. A sterile dressing was applied to the site. Thigh-high Gerard stocking was placed on the left lower extremity. The patient tolerated the procedure well and was returned to the PRU in stable condition. EBL: < 5 ml. Complications: None. Impression: 1. Ultrasound demonstrates dilated left greater saphenous vein with greater than 0.5 seconds reflux. 2. Successful left greater saphenous vein ablation with laser. 3. Patient was placed in thigh-high GERARD stockings. Patient to return in 1 week for follow up ultrasound. Thank you this referral. CC HOMERO Tao MD Jul 27, 2021 14:55
== END ==
LOC: M IRPRO 11:07
PROVIDERS: ATTEND Radiology Diagnostic Radiology
DX: I87.312 Chronic venous hypertension (idiopathic) with ulcer of left lower extremity (principal); L97.929 Non-pressure chronic ulcer of unspecified part of left lower leg with unspecified severity; Z88.4 Allergy status to anesthetic agent; Z88.6 Allergy status to analgesic agent; Z88.8 Allergy status to other drugs, medicaments and biological substances
CPT/HCPCS: 36465; 36478; 76940; 99152; 99153; J1644; J2250; J3010

== ENCOUNTER → 2021-08-01 | Outpatient (CLI) | payer MEDICARE, MEDICAID, OTHER ==
[~2021-08-01] MED LIST changes: -LIDOCAINE 1% MDV 20ML VIAL As Ordered ONE; -LIDOCAINE 2% MDV 20ML VIAL As Ordered ONE; -MIDAZOLAM INJ 2MG/2ML VIAL (J2250 PER 1MG) As Ordered ONE; -NS 1,000 ML IV SCH; -diphenhydrAMINE 50MG/ML VIAL (J1200) As Ordered ONE; -fentaNYL 100 MCG/2 ML INJECTION (J3010) As Ordered ONE
--- NOTE | 2021-08-01 14:24 | REP ---
INDICATION: S/P EVLT COMPARISON: 06/20/2021 TECHNIQUE: Stanton scale and color Doppler evaluation using linear high frequency transducer. FINDINGS: Ultrasound examination of the left lower extremity deep venous structures from the common femoral vein through the popliteal vein demonstrates normal compressibility, flow and wave patterns in response to respiration and augmentation. Calf veins could not be evaluated due to edema. Greater saphenous vein appears thrombosed and consistent with the history of EVLT. Contralateral CFV is patent and normal. IMPRESSION: No evidence for deep venous thrombosis. <Electronically signed by Alexy Meadows > 08/01/21 [id number]
--- NOTE | 2021-08-01 14:33 | IRPN ---
[facility] IR Progress Note IR Progress Note DATE: Aug 01, 2021 FOLLOW-UP: I personally reviewed the left lower extremity venous ultrasound performed 1 week post left greater saphenous vein EVLT. Good treatment response with complete saphenous vein thrombosis. The thrombus extends to the GSV/femoral junction. The common femoral vein is patent and compressible. On examination: left lower extremity is in compression stocking. No calf tenderness. No increased swelling of the left lower extremity. IMPRESSION: Doing well status post left lower extremity GSV ablation with appropriate treatment response. Given the thrombus extends to the GSV/femoral ju nction, I started the patient on antiplatelet therapy, aspirin 325 mg p.o. daily and ordered a follow-up ultrasound ordered for 2 weeks time. Patient is prone to falls and any anticoagulation may be riskier than beneficial. If there is any increased swelling of the left lower extremity, chest pain or shortness of breath, patient is to report to the ER. Otherwise patient to start aspirin therapy and follow-up in 2 weeks with repeat ultrasound. Allergies Coded Allergies: tomato (Verified Allergy, Mild, 07/26/21) Penicillins (Verified Allergy, Unknown, unknown, 04/24/19) HOMERO LOVE MD Aug 01, 2021 14:33
== END ==
LOC: M RAD 13:23
PROVIDERS: ATTEND Radiology Diagnostic Radiology
DX: I83.812 Varicose veins of left lower extremity with pain (principal)
CPT/HCPCS: 15271; 93971; Q4196

== ENCOUNTER → 2021-08-15 | Outpatient (POV) | payer MEDICARE, MEDICAID, OTHER ==
[~2021-08-15] VITALS: Ht 160 cm; Wt 59.0 kg
[~2021-08-15] MED LIST changes: +LOSA100T45; -LOSA100T50
[2021-08-15 08:50] VITALS: BP 171/74
== END ==
LOC: M IRPOV 08:21
PROVIDERS: ATTEND Radiology Diagnostic Radiology
DX: Z48.816 Encounter for surgical aftercare following surgery on the genitourinary system (principal)

== ENCOUNTER → 2021-08-15 | Outpatient (CLI) | payer MEDICARE, MEDICAID, OTHER | LOC: M RAD 08:16 | PROVIDERS: ATTEND Radiology Diagnostic Radiology | DX: I82.812 Embolism and thrombosis of superficial veins of left lower extremity (principal) | CPT/HCPCS: 93971; G0463 ==

== ENCOUNTER → 2021-11-27 | Outpatient (REF) | payer MEDICARE, MEDICAID, OTHER ==
[2021-11-27 17:02] LABS: FERRITIN 27 NG/ML (8-252); IRON (FE) 43 UG/DL (50-170); PERCENT SATURATION 15.1 % (13.2-45.0); TOTAL IRON BINDING CAPACITY 284 UG/DL (250-450)
[2021-11-27 17:10] LABS: VITAMIN B12 LEVEL > 2000 PG/ML (247-911)
== END ==
LOC: M LAB REF 16:02
PROVIDERS: ATTEND Internal Medicine
DX: D50.9 Iron deficiency anemia, unspecified (principal)

== ENCOUNTER 2021-12-19 13:46 | Emergency (ER) | payer MEDICARE, MEDICAID, OTHER ==
[~2021-12-19] VITALS: Ht 157.5 cm; Wt 59.1 kg
[2021-12-19 14:15] VITALS: BP 179/78
[2021-12-19 14:44] LABS: BASO # 0.1 10^3/uL (0.0-0.2); BASO % 0.6 % (0.0-1.0); EOS # 0.1 10^3/uL (0.0-0.5); EOS % 1.4 % (0.0-3.0); HEMATOCRIT 38.7 % (36.0-47.0); HEMOGLOBIN 12.1 g/dl (12.0-15.5); LYMPH # 1.4 10^3/uL (1.5-5.0); LYMPH % 14.8 % (24.0-44.0); MEAN CORPUSCULAR HGB CONC 31.3 g/dl (32.0-36.5); MEAN CORPUSCULAR VOLUME 73.4 fl (80.0-96.0); MONO % 10.3 % (2.0-8.0); NEUTROPHILS # 6.9 10^3/uL (1.5-8.5); NEUTROPHILS % 72.6 % (36.0-66.0); PLATELET COUNT, AUTOMATED 252 10^3/uL (150-450); RED BLOOD COUNT 5.27 10^6/uL (4.00-5.40); WHITE BLOOD COUNT 9.5 10^3/uL (4.0-10.0)
[2021-12-19 15:08] LABS: ALT/SGPT 18 U/L (12-78); BILIRUBIN,DIRECT < 0.1 MG/DL (0.0-0.2); BILIRUBIN,TOTAL 0.3 MG/DL (0.2-1.0); BLOOD UREA NITROGEN 11 MG/DL (7-18); CALCIUM LEVEL 9.5 MG/DL (8.8-10.2); CARBON DIOXIDE LEVEL 30 MEQ/L (21-32); CHLORIDE LEVEL 102 MEQ/L (98-107); CREATININE FOR GFR 0.61 MG/DL (0.55-1.30); GLOMERULAR FILTRATION RATE > 60.0 (>32); GLUCOSE, FASTING 95 MG/DL (70-100); LIPASE 88 U/L (73-393); POTASSIUM SERUM 3.9 MEQ/L (3.5-5.1); SODIUM LEVEL 138 MEQ/L (136-145); TOTAL PROTEIN 6.8 GM/DL (6.4-8.2)
== END 2021-12-19 16:37 | disposition home or self-care (01) ==
LOC: M ED 13:46 → EDBD 13:46 → M ED 16:37
DX: I10 Essential (primary) hypertension (principal); E78.5 Hyperlipidemia, unspecified; E07.9 Disorder of thyroid, unspecified; I87.2 Venous insufficiency (chronic) (peripheral); Z79.899 Other long term (current) drug therapy; Z79.890 Hormone replacement therapy; Z88.0 Allergy status to penicillin; Z91.018 Allergy to other foods

== ENCOUNTER → 2022-02-07 | Outpatient (CLI) | payer MEDICARE, MEDICAID, OTHER | LOC: M WUC 11:10 | PROVIDERS: ATTEND Internal Medicine | DX: R09.89 Other specified symptoms and signs involving the circulatory and respiratory systems (principal) ==

== ENCOUNTER → 2022-06-20 | Outpatient (REF) | payer MEDICARE, OTHER, MEDICAID ==
[2022-06-20 14:55] LABS: PERCENT SATURATION 18.5 % (13.2-45.0)
== END ==
LOC: M LAB REF 12:21
PROVIDERS: ATTEND Internal Medicine
DX: D50.9 Iron deficiency anemia, unspecified (principal)

== ENCOUNTER → 2023-01-31 | Outpatient (REF) | payer MEDICARE, OTHER, MEDICAID ==
[~2023-01-31] MED LIST changes: -LOSA100T45; +LOSA100T46
[2023-01-31 17:50] LABS: PERCENT SATURATION 15.5 % (13.2-45.0)
[2023-01-31 17:52] LABS: FERRITIN 19.3 NG/ML (7.3-270.7)
== END ==
LOC: M LAB REF 16:31
PROVIDERS: ATTEND Internal Medicine
DX: D50.9 Iron deficiency anemia, unspecified (principal); R41.3 Other amnesia

== ENCOUNTER → 2023-02-02 | Outpatient (CLI) | payer MEDICARE, MEDICAID | LOC: M RAD 10:33 | PROVIDERS: ATTEND Internal Medicine | DX: J84.10 Pulmonary fibrosis, unspecified (principal) ==

== ENCOUNTER 2023-02-08 13:46 | Inpatient (IN) | payer MEDICARE, MEDICAID ==
[~2023-02-08] VITALS: Ht 162.6 cm; Wt 61.6 kg
[2023-02-08] MEDS ORDERED: MIDAZOLAM INJ 2MG/2ML VIAL IV STA ×2 (13:54→14:23)
[2023-02-08] MEDS ORDERED: NS 500 ML IV ONE (13:55)
[2023-02-08 15:16] LABS: BASO # 0.1 10^3/uL (0.0-0.2); BASO % 0.6 % (0.0-1.0); EOS % 0.5 % (0.0-3.0); HEMATOCRIT 36.3 % (36.0-47.0); HEMOGLOBIN 11.4 g/dl (12.0-15.5); LYMPH # 0.7 10^3/uL (1.5-5.0); LYMPH % 8.3 % (24.0-44.0); MEAN CORPUSCULAR HEMOGLOBIN 24.3 pg (27.0-33.0); MEAN CORPUSCULAR HGB CONC 31.4 g/dl (32.0-36.5); MEAN CORPUSCULAR VOLUME 77.4 fl (80.0-96.0); MONO # 0.7 10^3/uL (0.0-0.8); MONO % 8.2 % (2.0-8.0); NEUTROPHILS # 6.8 10^3/uL (1.5-8.5); PLATELET COUNT, AUTOMATED 185 10^3/uL (150-450); RED BLOOD COUNT 4.69 10^6/uL (4.00-5.40); WHITE BLOOD COUNT 8.3 10^3/uL (4.0-10.0)
[2023-02-08 15:35] LABS: ETHYL ALCOHOL (ETHANOL) < 0.003 % (0.000-0.010)
[2023-02-08 15:36] LABS: ACETAMINOPHEN LEVEL < 2.0 UG/ML (10.0-20.0); ALBUMIN 2.9 G/DL (3.2-5.2); ALKALINE PHOSPHATASE 117 U/L (46-116); ALT/SGPT 11 U/L (7.0-40); AST/SGOT 13 U/L (<34); BILIRUBIN,DIRECT 0.1 MG/DL (<0.4); BILIRUBIN,TOTAL 0.4 MG/DL (0.3-1.2); BLOOD UREA NITROGEN 11 MG/DL (9-23); CALCIUM LEVEL 7.9 MG/DL (8.3-10.6); CARBON DIOXIDE LEVEL 26 MMOL/L (20-31); CHLORIDE LEVEL 104 MMOL/L (98-107); CREATININE FOR GFR 0.66 MG/DL (0.55-1.30); GLOMERULAR FILTRATION RATE > 60.0 (>32); GLUCOSE, FASTING 133 MG/DL (74-106); POTASSIUM SERUM 3.3 MMOL/L (3.5-5.1); SODIUM LEVEL 136 MMOL/L (136-145); TOTAL PROTEIN 5.9 G/DL (5.7-8.2)
[2023-02-08 15:37] LABS: SALICYLATE LEVEL < 3.0 MG/DL (<30)
[2023-02-08 15:39] LABS: THYROID STIMULATING HORMONE 2.922 uIU/ML (0.55-4.78)
[2023-02-08 15:48] LABS: OSMOLALITY SERUM 285 MOSM/KG (280-301)
[2023-02-08 16:06] LABS: RSV AMPLIFICATION NEGATIVE (NEGATIVE)
[2023-02-08] MEDS ORDERED: amLODIPine 5 MG TAB PO ONE (17:05)
[2023-02-08] MEDS ORDERED: hydrALAZINE 20MG/ML 1ML VIAL IV PRN (17:30)
[2023-02-08] MEDS ORDERED: FUROSEMIDE 20 MG TAB PO ONE (17:35)
[2023-02-08] MEDS ORDERED: LORazepam 2 MG/ML 1ML VIAL IV PRN (17:40)
[2023-02-08] MEDS ORDERED: AMLO2.5T3 PO (17:55)
[2023-02-08] MEDS ORDERED: FAMO40TA3 PO (17:55)
[2023-02-08] MEDS ORDERED: SERT50TA29 PO (17:55)
[2023-02-08] MEDS ORDERED: NITR100C2 PO (17:55)
[2023-02-08] MEDS ORDERED: VITA200021 PO (17:55)
[2023-02-08] MEDS ORDERED: HYDR10TAB PO (17:55)
[2023-02-08 17:56] VITALS: O2SAT 90
[2023-02-08] MEDS ORDERED: COMMENTS (17:57)
[2023-02-08] MEDS ORDERED: HOME MED LIST COMPLETE! XX SCH (18:00)
[2023-02-08] MEDS ORDERED: FUROSEMIDE 20MG/2ML VIAL IV ONE (18:30)
[2023-02-08] MEDS: levETIRAcetam 250MG TABLET (KEPPRA) PO SCH (18:34)
[2023-02-08] MEDS: KCL 10MEQ/100ML SWI (KRUN) 10 MEQ in IV 1 EA IV SCH ×4 (18:35→21:37)
[2023-02-08] MEDS ORDERED: ACETAMINOPHEN TAB 650MG DOSE (2X325MG) PO PRN (18:35)
[2023-02-08] MEDS: **hydrALAZINE** 10 MG TAB PO SCH (19:15)
[2023-02-08] MEDS: DOCUSATE SODIUM 100MG CAPSULE PO SCH (19:15)
[2023-02-08 20:11] LABS: FREE T4 1.22 NG/DL (0.89-1.76); THYROID STIMULATING HORMONE 1.946 uIU/ML (0.55-4.78)
[2023-02-08 21:00] VITALS: BP 137/61
[2023-02-09] VITALS (8 sets, daily range): BP systolic 142–187; BP diastolic 64–80
[2023-02-09] MEDS: levETIRAcetam 250MG TABLET (KEPPRA) PO SCH ×2 (05:02→22:01)
[2023-02-09] MEDS: LEVOTHYROXINE 25MCG TABLET (0.025MG) PO SCH (05:36)
[2023-02-09] MEDS: HEPARIN SOD (PORCINE) 5000UNITS/ML 1ML VIAL/SYRINGE SQ SCH ×3 (05:36→22:00)
[2023-02-09 06:12] LABS: HEMATOCRIT 42.4 % (36.0-47.0); HEMOGLOBIN 13.3 g/dl (12.0-15.5); MEAN CORPUSCULAR HEMOGLOBIN 24.1 pg (27.0-33.0); MEAN CORPUSCULAR HGB CONC 31.4 g/dl (32.0-36.5); MEAN CORPUSCULAR VOLUME 76.8 fl (80.0-96.0); PLATELET COUNT, AUTOMATED 221 10^3/uL (150-450); RED BLOOD COUNT 5.52 10^6/uL (4.00-5.40); WHITE BLOOD COUNT 7.8 10^3/uL (4.0-10.0)
[2023-02-09 06:42] LABS: BLOOD UREA NITROGEN 10 MG/DL (9-23); CALCIUM LEVEL 9.1 MG/DL (8.3-10.6); CARBON DIOXIDE LEVEL 26 MMOL/L (20-31); CHLORIDE LEVEL 104 MMOL/L (98-107); CREATININE FOR GFR 0.57 MG/DL (0.55-1.30); GLOMERULAR FILTRATION RATE > 60.0 (>32); GLUCOSE, FASTING 89 MG/DL (74-106); MAGNESIUM LEVEL 2.1 MG/DL (1.8-2.4); POTASSIUM SERUM 3.5 MMOL/L (3.5-5.1); SODIUM LEVEL 138 MMOL/L (136-145)
[2023-02-09] MEDS: **hydrALAZINE** 10 MG TAB PO SCH ×2 (09:00→22:01)
[2023-02-09] MEDS: DOCUSATE SODIUM 100MG CAPSULE PO SCH ×2 (09:00→22:00)
[2023-02-09] MEDS ORDERED: amLODIPine 5 MG TAB PO SCH (09:00)
[2023-02-09] MEDS: FERROUS GLUCONATE 324 MG TAB PO SCH (09:15)
[2023-02-09] MEDS: SERTRALINE HCL 50 MG TAB PO SCH (09:15)
[2023-02-09] MEDS: FAMOTIDINE 20 MG TAB PO SCH (09:15)
[2023-02-09] MEDS: bisoproloL fumarate 5 MG TAB PO SCH (09:16)
[2023-02-09] MEDS: FUROSEMIDE 20 MG TAB PO SCH ×2 (13:11→16:26)
[2023-02-09] MEDS ORDERED: **hydrALAZINE** 10 MG TAB PO ONE (16:10)
[2023-02-09] MEDS ORDERED: **hydrALAZINE** 10 MG TAB PO SCH (21:00)
[2023-02-10] MEDS ORDERED: hydrALAZINE 20MG/ML 1ML VIAL IV ONE (01:05)
[2023-02-10 03:04] VITALS: BP 166/71
[2023-02-10 03:57] VITALS: BP 139/63
[2023-02-10] MEDS: LEVOTHYROXINE 25MCG TABLET (0.025MG) PO SCH (05:35)
[2023-02-10] MEDS: HEPARIN SOD (PORCINE) 5000UNITS/ML 1ML VIAL/SYRINGE SQ SCH ×3 (05:35→20:25)
[2023-02-10 06:32] LABS: HEMATOCRIT 40.7 % (36.0-47.0); HEMOGLOBIN 12.8 g/dl (12.0-15.5); MEAN CORPUSCULAR HEMOGLOBIN 24.2 pg (27.0-33.0); MEAN CORPUSCULAR HGB CONC 31.4 g/dl (32.0-36.5); MEAN CORPUSCULAR VOLUME 76.8 fl (80.0-96.0); PLATELET COUNT, AUTOMATED 208 10^3/uL (150-450); WHITE BLOOD COUNT 6.5 10^3/uL (4.0-10.0)
[2023-02-10 07:43] VITALS: BP 159/69
[2023-02-10 07:45] LABS: BLOOD UREA NITROGEN 14 MG/DL (9-23); CALCIUM LEVEL 8.7 MG/DL (8.3-10.6); CARBON DIOXIDE LEVEL 26 MMOL/L (20-31); CHLORIDE LEVEL 102 MMOL/L (98-107); GLOMERULAR FILTRATION RATE > 60.0 (>32); GLUCOSE, FASTING 94 MG/DL (74-106); POTASSIUM SERUM 3.6 MMOL/L (3.5-5.1); SODIUM LEVEL 136 MMOL/L (136-145)
[2023-02-10] MEDS: DOCUSATE SODIUM 100MG CAPSULE PO SCH ×2 (09:00→20:19)
[2023-02-10] MEDS ORDERED: FUROSEMIDE 20 MG TAB PO SCH (09:00)
[2023-02-10] MEDS: FAMOTIDINE 20 MG TAB PO SCH (09:22)
[2023-02-10] MEDS: SERTRALINE HCL 50 MG TAB PO SCH (09:22)
[2023-02-10] MEDS: bisoproloL fumarate 5 MG TAB PO SCH (09:22)
[2023-02-10] MEDS: FERROUS GLUCONATE 324 MG TAB PO SCH (09:23)
[2023-02-10] MEDS: levETIRAcetam 250MG TABLET (KEPPRA) PO SCH ×2 (09:23→20:19)
[2023-02-10] MEDS: VALSARTAN 40MG TABLET (DIOVAN) PO SCH (09:23)
[2023-02-10] MEDS: **hydrALAZINE** 10 MG TAB PO SCH ×3 (09:23→20:19)
[2023-02-10] MEDS: FUROSEMIDE 20 MG TAB PO SCH ×2 (09:23→16:41)
[2023-02-10] MEDS ORDERED: POTASSIUM CHLORIDE 10MEQ SR TABLET PO ONE (09:40)
[2023-02-10 14:30] VITALS: BP 173/72
[2023-02-10 18:00] VITALS: BP 162/106
[2023-02-10] MEDS: amLODIPine 5 MG TAB PO SCH (20:18)
[2023-02-10 21:29] VITALS: BP 163/89
[2023-02-11] MEDS: HEPARIN SOD (PORCINE) 5000UNITS/ML 1ML VIAL/SYRINGE SQ SCH ×3 (05:19→21:30)
[2023-02-11] MEDS: LEVOTHYROXINE 25MCG TABLET (0.025MG) PO SCH (05:19)
[2023-02-11 06:00] VITALS: BP 151/64
[2023-02-11] MEDS: levETIRAcetam 250MG TABLET (KEPPRA) PO SCH ×2 (08:39→21:31)
[2023-02-11] MEDS: FAMOTIDINE 20 MG TAB PO SCH (08:39)
[2023-02-11] MEDS: DOCUSATE SODIUM 100MG CAPSULE PO SCH ×2 (08:39→21:30)
[2023-02-11] MEDS: FUROSEMIDE 20 MG TAB PO SCH ×2 (08:40→16:53)
[2023-02-11] MEDS: FERROUS GLUCONATE 324 MG TAB PO SCH (08:44)
[2023-02-11] MEDS: bisoproloL fumarate 5 MG TAB PO SCH (08:44)
[2023-02-11] MEDS: SERTRALINE HCL 50 MG TAB PO SCH (08:44)
[2023-02-11] MEDS: **hydrALAZINE** 10 MG TAB PO SCH ×3 (08:44→21:30)
[2023-02-11] MEDS: VALSARTAN 40MG TABLET (DIOVAN) PO SCH (08:45)
[2023-02-11 14:00] VITALS: BP 155/65
[2023-02-11 21:10] VITALS: BP 149/61
[2023-02-11] MEDS: amLODIPine 5 MG TAB PO SCH (21:31)
[2023-02-12 05:20] VITALS: BP 160/71
[2023-02-12] MEDS: HEPARIN SOD (PORCINE) 5000UNITS/ML 1ML VIAL/SYRINGE SQ SCH ×2 (06:03→14:16)
[2023-02-12] MEDS: LEVOTHYROXINE 25MCG TABLET (0.025MG) PO SCH (06:03)
[2023-02-12] MEDS ORDERED: **hydrALAZINE** 10 MG TAB PO SCH (09:00)
[2023-02-12] MEDS: FUROSEMIDE 20 MG TAB PO SCH (09:18)
[2023-02-12] MEDS: FERROUS GLUCONATE 324 MG TAB PO SCH (09:18)
[2023-02-12] MEDS: SERTRALINE HCL 50 MG TAB PO SCH (09:18)
[2023-02-12] MEDS: DOCUSATE SODIUM 100MG CAPSULE PO SCH (09:18)
[2023-02-12] MEDS: levETIRAcetam 250MG TABLET (KEPPRA) PO SCH (09:18)
[2023-02-12 09:19] VITALS: BP 160/71
[2023-02-12] MEDS: FAMOTIDINE 20 MG TAB PO SCH (09:19)
[2023-02-12] MEDS: VALSARTAN 40MG TABLET (DIOVAN) PO SCH (09:19)
[2023-02-12] MEDS: bisoproloL fumarate 5 MG TAB PO SCH (09:19)
[2023-02-12] MEDS ORDERED: AMLO1TAB24 PO (13:50)
[2023-02-12] MEDS ORDERED: KEPP250T5 PO (13:50)
[2023-02-12] MEDS ORDERED: KEPP1TAB PO (13:50)
[2023-02-12] MEDS ORDERED: HYDR10TAB PO (13:50)
[2023-02-12] MEDS ORDERED: DIOV80TA3 PO (13:54)
[2023-02-13] MEDS ORDERED: VALSARTAN 80 MG TAB (DIOVAN) PO SCH (09:00)
[2023-02-16] MEDS ORDERED: levETIRAcetam 250MG TABLET (KEPPRA) PO SCH (09:00)
== END 2023-02-12 14:53 | DRG 101 ==
LOC: EDBD 13:46 → M ED 13:46 → M ED INP 17:02 → CANRESERV 18:53 → ENRESERV 18:53 → M PCU 21:07 → M MS5PR 02-10 14:40
PROVIDERS: ADMIT Internal Medicine; ATTEND Internal Medicine
PROC: B246ZZZ Ultrasonography of Right and Left Heart (ICD-10-PCS; principal; 2023-02-09)
DX: G40.409 Other generalized epilepsy and epileptic syndromes, not intractable, without status epilepticus (principal); J98.11 Atelectasis; I10 Essential (primary) hypertension; E78.5 Hyperlipidemia, unspecified; E03.9 Hypothyroidism, unspecified; I87.2 Venous insufficiency (chronic) (peripheral); F41.9 Anxiety disorder, unspecified; I16.0 Hypertensive urgency; E87.6 Hypokalemia; Z79.890 Hormone replacement therapy; Z79.899 Other long term (current) drug therapy; Z98.49 Cataract extraction status, unspecified eye; Z87.81 Personal history of (healed) traumatic fracture

== ENCOUNTER 2023-02-12 12:34 | Inpatient (IN) | payer MEDICARE, MEDICAID ==
[~2023-02-12] VITALS: Ht 162.6 cm; Wt 63.7 kg
[~2023-02-12 12:34] MED LIST changes: +AMLO2.5T3 PO; +COMMENTS; +FAMO40TA3 PO; +HYDR10TAB PO; +NITR100C2 PO; +SERT50TA29 PO; +VITA200021 PO
[2023-02-12] MEDS ORDERED: HYDR10TAB PO (13:50)
[2023-02-12] MEDS ORDERED: AMLO1TAB24 PO (13:50)
[2023-02-12] MEDS ORDERED: KEPP1TAB PO (13:50)
[2023-02-12] MEDS ORDERED: KEPP250T5 PO (13:50)
[2023-02-12] MEDS ORDERED: DIOV80TA3 PO (13:54)
[2023-02-12 15:00] VITALS: BP 147/67; TEMP 98.6; O2SAT 95
[2023-02-12] MEDS ORDERED: LORazepam 2 MG/ML 1ML VIAL IM PRN (16:35)
[2023-02-12] MEDS ORDERED: BISACODYL 10MG SUPP PR PRN (16:35)
[2023-02-12] MEDS ORDERED: FUROSEMIDE 20 MG TAB PO SCH (17:00)
[2023-02-12 20:00] VITALS: BP 159/68; TEMP 98.1; O2SAT 97
[2023-02-12] MEDS: SENNA 8.6 MG TAB (SENOKOT) PO SCH (20:41)
[2023-02-12] MEDS: DOCUSATE SODIUM 100MG CAPSULE PO SCH (20:42)
[2023-02-12] MEDS: REMEDY PHYTOPLEX Z-GUARD PASTE 113GM TUBE (FROM STOREROOM PRODUCT) TOP SCH (20:42)
[2023-02-12] MEDS: levETIRAcetam 250MG TABLET (KEPPRA) PO SCH (20:45)
[2023-02-12] MEDS: **hydrALAZINE** 10 MG TAB PO SCH (20:45)
[2023-02-12] MEDS: amLODIPine 5 MG TAB PO SCH (20:45)
[2023-02-12] MEDS: valACYclovir HCL 500 MG TAB PO SCH (20:46)
[2023-02-13] MEDS: LEVOTHYROXINE 25MCG TABLET (0.025MG) PO SCH (05:56)
[2023-02-13 06:02] VITALS: BP 130/60; TEMP 98.7; O2SAT 94
[2023-02-13 07:03] LABS: HEMATOCRIT 37.6 % (36.0-47.0); HEMOGLOBIN 12.2 g/dl (12.0-15.5); MEAN CORPUSCULAR HGB CONC 32.4 g/dl (32.0-36.5); PLATELET COUNT, AUTOMATED 149 10^3/uL (150-450); RED BLOOD COUNT 5.08 10^6/uL (4.00-5.40); WHITE BLOOD COUNT 5.1 10^3/uL (4.0-10.0)
[2023-02-13 07:28] LABS: ALBUMIN 2.5 G/DL (3.2-5.2); ALKALINE PHOSPHATASE 110 U/L (46-116); ALT/SGPT 27 U/L (7.0-40); AST/SGOT 22 U/L (<34); BILIRUBIN,TOTAL 0.3 MG/DL (0.3-1.2); BLOOD UREA NITROGEN 14 MG/DL (9-23); CALCIUM LEVEL 8.2 MG/DL (8.3-10.6); CARBON DIOXIDE LEVEL 28 MMOL/L (20-31); CHLORIDE LEVEL 96 MMOL/L (98-107); CREATININE FOR GFR 0.57 MG/DL (0.55-1.30); GLOMERULAR FILTRATION RATE > 60.0 (>32); GLUCOSE, FASTING 99 MG/DL (74-106); POTASSIUM SERUM 3.7 MMOL/L (3.5-5.1); SODIUM LEVEL 130 MMOL/L (136-145); TOTAL PROTEIN 5.6 G/DL (5.7-8.2)
[2023-02-13] MEDS: DOCUSATE SODIUM 100MG CAPSULE PO SCH ×2 (09:00→21:00)
[2023-02-13] MEDS: REMEDY PHYTOPLEX Z-GUARD PASTE 113GM TUBE (FROM STOREROOM PRODUCT) TOP SCH ×3 (09:00→21:00)
[2023-02-13 09:03] LABS: OSMOLALITY SERUM 267 MOSM/KG (280-301)
[2023-02-13] MEDS: levETIRAcetam 250MG TABLET (KEPPRA) PO SCH ×2 (09:26→21:03)
[2023-02-13] MEDS: FERROUS GLUCONATE 324 MG TAB PO SCH (09:26)
[2023-02-13] MEDS: **hydrALAZINE** 10 MG TAB PO SCH ×3 (09:27→21:02)
[2023-02-13] MEDS: bisoproloL fumarate 5 MG TAB PO SCH (09:27)
[2023-02-13] MEDS: valACYclovir HCL 500 MG TAB PO SCH ×3 (09:27→21:02)
[2023-02-13] MEDS: FAMOTIDINE 20 MG TAB PO SCH (09:27)
[2023-02-13] MEDS: SERTRALINE HCL 50 MG TAB PO SCH (09:27)
[2023-02-13] MEDS: VALSARTAN 80 MG TAB (DIOVAN) PO SCH (09:28)
[2023-02-13] MEDS: HEPARIN SOD (PORCINE) 5000UNITS/ML 1ML VIAL/SYRINGE SC SCH ×2 (09:28→21:02)
[2023-02-13 09:44] LABS: ATYPICAL LYMPH 8 % (0-5); BASOPHILS 1 % (0-1); EOSINOPHILS 2 % (0-3); LYMPHOCYTES 21 % (16-44); MONOCYTES 14 % (0-5); NEUTROPHILS 49 % (28-66)
[2023-02-13 09:45] LABS: MICROCYTOSIS 2+; PLATELET ESTIMATE NORMAL (NORMAL)
[2023-02-13 09:46] LABS: ANISOCYTOSIS 1+
[2023-02-13 14:00] VITALS: TEMP 98.4; O2SAT 95
[2023-02-13] MEDS: FUROSEMIDE 20 MG TAB PO SCH (16:49)
[2023-02-13 19:45] VITALS: BP 158/74; TEMP 98.3; O2SAT 93
[2023-02-13] MEDS: SENNA 8.6 MG TAB (SENOKOT) PO SCH (21:00)
[2023-02-13] MEDS: ACETAMINOPHEN TAB 650MG DOSE (2X325MG) PO PRN (21:03)
[2023-02-13] MEDS: amLODIPine 5 MG TAB PO SCH (21:03)
[2023-02-14] MEDS: LEVOTHYROXINE 25MCG TABLET (0.025MG) PO SCH (05:58)
[2023-02-14 06:00] VITALS: BP 158/82; TEMP 98.2; O2SAT 94
[2023-02-14 07:20] LABS: BLOOD UREA NITROGEN 15 MG/DL (9-23); CARBON DIOXIDE LEVEL 30 MMOL/L (20-31); CHLORIDE LEVEL 100 MMOL/L (98-107); CREATININE FOR GFR 0.54 MG/DL (0.55-1.30); GLOMERULAR FILTRATION RATE > 60.0 (>32); GLUCOSE, FASTING 90 MG/DL (74-106); POTASSIUM SERUM 3.5 MMOL/L (3.5-5.1); SODIUM LEVEL 135 MMOL/L (136-145)
[2023-02-14] MEDS: FERROUS GLUCONATE 324 MG TAB PO SCH (08:27)
[2023-02-14] MEDS: HEPARIN SOD (PORCINE) 5000UNITS/ML 1ML VIAL/SYRINGE SC SCH ×2 (08:27→20:54)
[2023-02-14] MEDS: FAMOTIDINE 20 MG TAB PO SCH (08:27)
[2023-02-14] MEDS: levETIRAcetam 250MG TABLET (KEPPRA) PO SCH ×2 (08:28→20:54)
[2023-02-14] MEDS: VALSARTAN 80 MG TAB (DIOVAN) PO SCH (08:28)
[2023-02-14] MEDS: **hydrALAZINE** 10 MG TAB PO SCH ×3 (08:28→20:55)
[2023-02-14] MEDS: SERTRALINE HCL 50 MG TAB PO SCH (08:28)
[2023-02-14] MEDS: REMEDY PHYTOPLEX Z-GUARD PASTE 113GM TUBE (FROM STOREROOM PRODUCT) TOP SCH ×3 (08:29→21:00)
[2023-02-14] MEDS: valACYclovir HCL 500 MG TAB PO SCH ×3 (08:29→20:54)
[2023-02-14] MEDS: bisoproloL fumarate 5 MG TAB PO SCH (08:29)
[2023-02-14] MEDS: DOCUSATE SODIUM 100MG CAPSULE PO SCH ×2 (08:29→21:00)
[2023-02-14 14:00] VITALS: BP 146/80; TEMP 98; O2SAT 96
[2023-02-14] MEDS: FUROSEMIDE 20 MG TAB PO SCH (16:06)
[2023-02-14] MEDS ORDERED: PROHANCE 279.3MG/ML 15ML VIAL As Ordered ONE (18:49)
[2023-02-14 20:00] VITALS: BP 142/70; TEMP 97.9; O2SAT 96
[2023-02-14] MEDS: ACETAMINOPHEN TAB 650MG DOSE (2X325MG) PO PRN (20:54)
[2023-02-14] MEDS: amLODIPine 5 MG TAB PO SCH (20:55)
[2023-02-14] MEDS: SENNA 8.6 MG TAB (SENOKOT) PO SCH (21:00)
[2023-02-15] MEDS: LEVOTHYROXINE 25MCG TABLET (0.025MG) PO SCH (05:52)
[2023-02-15 06:04] VITALS: BP 122/60; TEMP 98.2; O2SAT 95
[2023-02-15 06:24] LABS: HEMATOCRIT 36.2 % (36.0-47.0); HEMOGLOBIN 11.7 g/dl (12.0-15.5); MEAN CORPUSCULAR HEMOGLOBIN 24.2 pg (27.0-33.0); MEAN CORPUSCULAR HGB CONC 32.3 g/dl (32.0-36.5); MEAN CORPUSCULAR VOLUME 74.9 fl (80.0-96.0); PLATELET COUNT, AUTOMATED 174 10^3/uL (150-450); RED BLOOD COUNT 4.83 10^6/uL (4.00-5.40); WHITE BLOOD COUNT 5.3 10^3/uL (4.0-10.0)
[2023-02-15 06:44] LABS: BLOOD UREA NITROGEN 14 MG/DL (9-23); CALCIUM LEVEL 8.6 MG/DL (8.3-10.6); CARBON DIOXIDE LEVEL 28 MMOL/L (20-31); CHLORIDE LEVEL 102 MMOL/L (98-107); CREATININE FOR GFR 0.54 MG/DL (0.55-1.30); GLOMERULAR FILTRATION RATE > 60.0 (>32); GLUCOSE, FASTING 89 MG/DL (74-106); POTASSIUM SERUM 3.6 MMOL/L (3.5-5.1); SODIUM LEVEL 136 MMOL/L (136-145)
[2023-02-15 06:50] LABS: ATYPICAL LYMPH 6 % (0-5); BASOPHILS 1 % (0-1); EOSINOPHILS 2 % (0-3); LYMPHOCYTES 50 % (16-44); MONOCYTES 11 % (0-5); NEUTROPHILS 30 % (28-66)
[2023-02-15 06:51] LABS: ANISOCYTOSIS 1+; MICROCYTOSIS 2+; PLATELET ESTIMATE NORMAL (NORMAL); POLYCHROMASIA 1+
[2023-02-15] MEDS: REMEDY PHYTOPLEX Z-GUARD PASTE 113GM TUBE (FROM STOREROOM PRODUCT) TOP SCH ×3 (08:42→19:43)
[2023-02-15] MEDS: HEPARIN SOD (PORCINE) 5000UNITS/ML 1ML VIAL/SYRINGE SC SCH ×2 (09:10→20:29)
[2023-02-15] MEDS: DOCUSATE SODIUM 100MG CAPSULE PO SCH ×2 (09:10→18:56)
[2023-02-15] MEDS: FAMOTIDINE 20 MG TAB PO SCH (09:10)
[2023-02-15] MEDS: levETIRAcetam 250MG TABLET (KEPPRA) PO SCH ×2 (09:10→20:29)
[2023-02-15] MEDS: VALSARTAN 80 MG TAB (DIOVAN) PO SCH (09:11)
[2023-02-15] MEDS: valACYclovir HCL 500 MG TAB PO SCH ×3 (09:11→20:29)
[2023-02-15] MEDS: FERROUS GLUCONATE 324 MG TAB PO SCH (09:11)
[2023-02-15] MEDS: **hydrALAZINE** 10 MG TAB PO SCH ×3 (09:11→20:31)
[2023-02-15] MEDS: bisoproloL fumarate 5 MG TAB PO SCH (09:12)
[2023-02-15 14:04] VITALS: BP 136/60; TEMP 98.2; O2SAT 96
[2023-02-15] MEDS: FUROSEMIDE 20 MG TAB PO SCH (17:33)
[2023-02-15] MEDS: SENNA 8.6 MG TAB (SENOKOT) PO SCH (18:56)
[2023-02-15 20:00] VITALS: BP 130/68; TEMP 98.2; O2SAT 95
[2023-02-15] MEDS: amLODIPine 5 MG TAB PO SCH (20:31)
[2023-02-16 05:45] VITALS: BP 160/70; TEMP 98.3; O2SAT 95
[2023-02-16] MEDS: LEVOTHYROXINE 25MCG TABLET (0.025MG) PO SCH (05:51)
[2023-02-16] MEDS: DOCUSATE SODIUM 100MG CAPSULE PO SCH ×2 (07:08→20:34)
[2023-02-16] MEDS: valACYclovir HCL 500 MG TAB PO SCH ×3 (07:19→20:33)
[2023-02-16] MEDS: bisoproloL fumarate 5 MG TAB PO SCH (07:19)
[2023-02-16] MEDS: FAMOTIDINE 20 MG TAB PO SCH (07:19)
[2023-02-16] MEDS: levETIRAcetam 250MG TABLET (KEPPRA) PO SCH ×2 (07:19→20:35)
[2023-02-16] MEDS: **hydrALAZINE** 10 MG TAB PO SCH ×3 (07:20→20:34)
[2023-02-16] MEDS: FERROUS GLUCONATE 324 MG TAB PO SCH (07:20)
[2023-02-16] MEDS: VALSARTAN 80 MG TAB (DIOVAN) PO SCH (07:20)
[2023-02-16] MEDS: SERTRALINE HCL 25 MG TABLET PO SCH (07:20)
[2023-02-16] MEDS: HEPARIN SOD (PORCINE) 5000UNITS/ML 1ML VIAL/SYRINGE SC SCH ×2 (07:21→20:34)
[2023-02-16] MEDS: REMEDY PHYTOPLEX Z-GUARD PASTE 113GM TUBE (FROM STOREROOM PRODUCT) TOP SCH ×3 (07:23→21:00)
[2023-02-16] MEDS ORDERED: levETIRAcetam 250MG TABLET (KEPPRA) PO SCH (09:00)
[2023-02-16 14:00] VITALS: BP 150/40; TEMP 97.8; O2SAT 95
[2023-02-16] MEDS: FUROSEMIDE 20 MG TAB PO SCH (16:54)
[2023-02-16 20:00] VITALS: BP 148/78; TEMP 98.2; O2SAT 96
[2023-02-16] MEDS: amLODIPine 5 MG TAB PO SCH (20:35)
[2023-02-16] MEDS: SENNA 8.6 MG TAB (SENOKOT) PO SCH (20:35)
[2023-02-17] MEDS: ACETAMINOPHEN TAB 650MG DOSE (2X325MG) PO PRN (03:14)
[2023-02-17 05:41] VITALS: BP 190/72; TEMP 98.2; O2SAT 95
[2023-02-17] MEDS: LEVOTHYROXINE 25MCG TABLET (0.025MG) PO SCH (06:05)
[2023-02-17] MEDS: **hydrALAZINE** 10 MG TAB PO SCH ×3 (06:06→20:30)
[2023-02-17] MEDS: VALSARTAN 80 MG TAB (DIOVAN) PO SCH (06:06)
[2023-02-17 06:51] VITALS: BP 178/70
[2023-02-17 07:33] VITALS: BP 160/75
[2023-02-17] MEDS: bisoproloL fumarate 5 MG TAB PO SCH (08:27)
[2023-02-17] MEDS: HEPARIN SOD (PORCINE) 5000UNITS/ML 1ML VIAL/SYRINGE SC SCH ×2 (08:27→20:28)
[2023-02-17] MEDS: DOCUSATE SODIUM 100MG CAPSULE PO SCH ×2 (08:27→20:29)
[2023-02-17] MEDS: FERROUS GLUCONATE 324 MG TAB PO SCH (08:27)
[2023-02-17] MEDS: REMEDY PHYTOPLEX Z-GUARD PASTE 113GM TUBE (FROM STOREROOM PRODUCT) TOP SCH ×3 (08:28→20:30)
[2023-02-17] MEDS: FAMOTIDINE 20 MG TAB PO SCH (08:28)
[2023-02-17] MEDS: valACYclovir HCL 500 MG TAB PO SCH ×3 (08:28→20:29)
[2023-02-17] MEDS: SERTRALINE HCL 25 MG TABLET PO SCH (08:28)
[2023-02-17] MEDS: levETIRAcetam 250MG TABLET (KEPPRA) PO SCH ×2 (08:28→20:29)
[2023-02-17 14:00] VITALS: BP 140/40; TEMP 97.6; O2SAT 95
[2023-02-17] MEDS: FUROSEMIDE 20 MG TAB PO SCH (16:00)
[2023-02-17 20:00] VITALS: BP 146/70; TEMP 98.2; O2SAT 96
[2023-02-17] MEDS: SENNA 8.6 MG TAB (SENOKOT) PO SCH (20:29)
[2023-02-17] MEDS: amLODIPine 5 MG TAB PO SCH (20:29)
[2023-02-18] MEDS: ACETAMINOPHEN TAB 650MG DOSE (2X325MG) PO PRN ×2 (03:08→21:12)
[2023-02-18 05:44] VITALS: BP 150/78; TEMP 98.2; O2SAT 95
[2023-02-18] MEDS: LEVOTHYROXINE 25MCG TABLET (0.025MG) PO SCH (05:55)
[2023-02-18] MEDS: DOCUSATE SODIUM 100MG CAPSULE PO SCH ×2 (08:21→21:12)
[2023-02-18] MEDS: HEPARIN SOD (PORCINE) 5000UNITS/ML 1ML VIAL/SYRINGE SC SCH ×2 (08:21→21:14)
[2023-02-18] MEDS: SERTRALINE HCL 25 MG TABLET PO SCH (08:21)
[2023-02-18] MEDS: bisoproloL fumarate 5 MG TAB PO SCH (08:22)
[2023-02-18] MEDS: FERROUS GLUCONATE 324 MG TAB PO SCH (08:22)
[2023-02-18] MEDS: FAMOTIDINE 20 MG TAB PO SCH (08:22)
[2023-02-18] MEDS: levETIRAcetam 250MG TABLET (KEPPRA) PO SCH ×2 (08:22→21:14)
[2023-02-18] MEDS: valACYclovir HCL 500 MG TAB PO SCH ×3 (08:22→21:13)
[2023-02-18] MEDS: REMEDY PHYTOPLEX Z-GUARD PASTE 113GM TUBE (FROM STOREROOM PRODUCT) TOP SCH ×3 (08:23→21:00)
[2023-02-18] MEDS: VALSARTAN 80 MG TAB (DIOVAN) PO SCH (08:23)
[2023-02-18] MEDS: **hydrALAZINE** 10 MG TAB PO SCH ×3 (08:23→21:13)
[2023-02-18 14:00] VITALS: BP 124/70; TEMP 98.4; O2SAT 95
[2023-02-18] MEDS: FUROSEMIDE 20 MG TAB PO SCH (16:14)
[2023-02-18 20:00] VITALS: BP 160/80; TEMP 98.2; O2SAT 96
[2023-02-18] MEDS: SENNA 8.6 MG TAB (SENOKOT) PO SCH (21:13)
[2023-02-18] MEDS: amLODIPine 5 MG TAB PO SCH (21:15)
[2023-02-19] MEDS: ACETAMINOPHEN TAB 650MG DOSE (2X325MG) PO PRN (02:39)
[2023-02-19] MEDS: LEVOTHYROXINE 25MCG TABLET (0.025MG) PO SCH (05:41)
[2023-02-19 06:00] VITALS: BP 130/70; TEMP 98.2; O2SAT 94
[2023-02-19] MEDS: REMEDY PHYTOPLEX Z-GUARD PASTE 113GM TUBE (FROM STOREROOM PRODUCT) TOP SCH ×3 (09:00→20:26)
[2023-02-19] MEDS: DOCUSATE SODIUM 100MG CAPSULE PO SCH ×2 (10:32→20:25)
[2023-02-19] MEDS: FAMOTIDINE 20 MG TAB PO SCH (10:32)
[2023-02-19] MEDS: FERROUS GLUCONATE 324 MG TAB PO SCH (10:33)
[2023-02-19] MEDS: valACYclovir HCL 500 MG TAB PO SCH ×2 (10:33→17:40)
[2023-02-19] MEDS: VALSARTAN 80 MG TAB (DIOVAN) PO SCH (10:33)
[2023-02-19] MEDS: levETIRAcetam 250MG TABLET (KEPPRA) PO SCH ×2 (10:33→20:26)
[2023-02-19] MEDS: SERTRALINE HCL 25 MG TABLET PO SCH (10:33)
[2023-02-19] MEDS: bisoproloL fumarate 5 MG TAB PO SCH (10:34)
[2023-02-19] MEDS: **hydrALAZINE** 10 MG TAB PO SCH ×3 (10:34→20:26)
[2023-02-19] MEDS: HEPARIN SOD (PORCINE) 5000UNITS/ML 1ML VIAL/SYRINGE SC SCH ×2 (10:35→20:25)
[2023-02-19 14:00] VITALS: BP 128/74; TEMP 98; O2SAT 96
[2023-02-19 16:58] LABS: BASO # 0.1 10^3/uL (0.0-0.2); BASO % 0.4 % (0.0-1.0); EOS # 0.1 10^3/uL (0.0-0.5); EOS % 0.6 % (0.0-3.0); HEMATOCRIT 38.6 % (36.0-47.0); HEMOGLOBIN 12.3 g/dl (12.0-15.5); LYMPH # 1.6 10^3/uL (1.5-5.0); LYMPH % 11.8 % (24.0-44.0); MEAN CORPUSCULAR HEMOGLOBIN 24.2 pg (27.0-33.0); MEAN CORPUSCULAR HGB CONC 31.9 g/dl (32.0-36.5); MEAN CORPUSCULAR VOLUME 75.8 fl (80.0-96.0); MONO # 1.3 10^3/uL (0.0-0.8); MONO % 9.8 % (2.0-8.0); NEUTROPHILS # 10.4 10^3/uL (1.5-8.5); NEUTROPHILS % 76.7 % (36.0-66.0); PLATELET COUNT, AUTOMATED 312 10^3/uL (150-450); RED BLOOD COUNT 5.09 10^6/uL (4.00-5.40); WHITE BLOOD COUNT 13.5 10^3/uL (4.0-10.0)
[2023-02-19 17:14] LABS: BLOOD UREA NITROGEN 15 MG/DL (9-23); CALCIUM LEVEL 8.6 MG/DL (8.3-10.6); CARBON DIOXIDE LEVEL 27 MMOL/L (20-31); CHLORIDE LEVEL 97 MMOL/L (98-107); CREATININE FOR GFR 0.55 MG/DL (0.55-1.30); GLOMERULAR FILTRATION RATE > 60.0 (>32); GLUCOSE, FASTING 91 MG/DL (74-106); POTASSIUM SERUM 4.2 MMOL/L (3.5-5.1); SODIUM LEVEL 131 MMOL/L (136-145)
[2023-02-19] MEDS: FUROSEMIDE 20 MG TAB PO SCH (17:40)
[2023-02-19] MEDS ORDERED: GABAPENTIN 100 MG CAP PO PRN (18:25)
[2023-02-19 20:00] VITALS: BP 146/60; TEMP 98; O2SAT 94
[2023-02-19] MEDS: amLODIPine 5 MG TAB PO SCH (20:25)
[2023-02-19] MEDS: SENNA 8.6 MG TAB (SENOKOT) PO SCH (20:25)
[2023-02-19] MEDS: ACETAMINOPHEN 500 MG TAB PO SCH (20:26)
[2023-02-20 06:00] VITALS: BP 160/80; TEMP 98.4; O2SAT 95
[2023-02-20] MEDS: LEVOTHYROXINE 25MCG TABLET (0.025MG) PO SCH (06:15)
[2023-02-20] MEDS: **hydrALAZINE** 10 MG TAB PO SCH (07:58)
[2023-02-20] MEDS: bisoproloL fumarate 5 MG TAB PO SCH (07:58)
[2023-02-20] MEDS: FAMOTIDINE 20 MG TAB PO SCH (07:59)
[2023-02-20] MEDS: DOCUSATE SODIUM 100MG CAPSULE PO SCH ×2 (07:59→21:35)
[2023-02-20] MEDS: levETIRAcetam 250MG TABLET (KEPPRA) PO SCH ×2 (07:59→21:35)
[2023-02-20] MEDS: VALSARTAN 80 MG TAB (DIOVAN) PO SCH (07:59)
[2023-02-20] MEDS: FERROUS GLUCONATE 324 MG TAB PO SCH (07:59)
[2023-02-20] MEDS: REMEDY PHYTOPLEX Z-GUARD PASTE 113GM TUBE (FROM STOREROOM PRODUCT) TOP SCH ×3 (08:00→21:00)
[2023-02-20] MEDS: HEPARIN SOD (PORCINE) 5000UNITS/ML 1ML VIAL/SYRINGE SC SCH ×2 (08:00→21:36)
[2023-02-20] MEDS: SERTRALINE HCL 25 MG TABLET PO SCH (08:00)
[2023-02-20 10:30] LABS: BASO # 0.1 10^3/uL (0.0-0.2); BASO % 0.5 % (0.0-1.0); EOS # 0.1 10^3/uL (0.0-0.5); EOS % 0.4 % (0.0-3.0); HEMATOCRIT 37.7 % (36.0-47.0); HEMOGLOBIN 12.2 g/dl (12.0-15.5); LYMPH # 1.5 10^3/uL (1.5-5.0); LYMPH % 10.4 % (24.0-44.0); MEAN CORPUSCULAR HEMOGLOBIN 24.5 pg (27.0-33.0); MEAN CORPUSCULAR HGB CONC 32.4 g/dl (32.0-36.5); MEAN CORPUSCULAR VOLUME 75.9 fl (80.0-96.0); MONO # 1.4 10^3/uL (0.0-0.8); MONO % 9.3 % (2.0-8.0); NEUTROPHILS # 11.4 10^3/uL (1.5-8.5); NEUTROPHILS % 78.5 % (36.0-66.0); PLATELET COUNT, AUTOMATED 347 10^3/uL (150-450); RED BLOOD COUNT 4.97 10^6/uL (4.00-5.40); WHITE BLOOD COUNT 14.6 10^3/uL (4.0-10.0)
[2023-02-20 10:51] LABS: BLOOD UREA NITROGEN 15 MG/DL (9-23); CALCIUM LEVEL 8.4 MG/DL (8.3-10.6); CARBON DIOXIDE LEVEL 28 MMOL/L (20-31); CHLORIDE LEVEL 100 MMOL/L (98-107); GLOMERULAR FILTRATION RATE > 60.0 (>32); GLUCOSE, FASTING 101 MG/DL (74-106); POTASSIUM SERUM 4.3 MMOL/L (3.5-5.1); SODIUM LEVEL 132 MMOL/L (136-145)
[2023-02-20 14:00] VITALS: BP 160/70; TEMP 97.8; O2SAT 95
[2023-02-20] MEDS: DOXYCYCLINE HYCLATE 100MG TABLET PO SCH ×2 (15:25→21:35)
[2023-02-20] MEDS: **hydrALAZINE HCL** 25 MG TAB PO SCH ×2 (15:25→21:36)
[2023-02-20] MEDS: LACTOBACILLUS ACIDOPHILUS CAP (BACID) PO SCH (16:59)
[2023-02-20] MEDS: FUROSEMIDE 20 MG TAB PO SCH (16:59)
[2023-02-20 20:35] VITALS: BP 158/62; TEMP 98.6; O2SAT 95
[2023-02-20] MEDS: amLODIPine 5 MG TAB PO SCH (21:35)
[2023-02-20] MEDS: SENNA 8.6 MG TAB (SENOKOT) PO SCH (21:35)
[2023-02-20] MEDS: ACETAMINOPHEN 500 MG TAB PO SCH (21:36)
[2023-02-21] MEDS: ACETAMINOPHEN TAB 650MG DOSE (2X325MG) PO PRN ×2 (00:01→08:27)
[2023-02-21] MEDS: LEVOTHYROXINE 25MCG TABLET (0.025MG) PO SCH (05:36)
[2023-02-21 06:00] VITALS: BP 148/76; TEMP 98.4; O2SAT 95
[2023-02-21 06:24] LABS: BASO # 0.1 10^3/uL (0.0-0.2); BASO % 0.6 % (0.0-1.0); EOS # 0.1 10^3/uL (0.0-0.5); EOS % 1.1 % (0.0-3.0); HEMATOCRIT 36.9 % (36.0-47.0); HEMOGLOBIN 11.8 g/dl (12.0-15.5); LYMPH # 2.1 10^3/uL (1.5-5.0); LYMPH % 21.3 % (24.0-44.0); MEAN CORPUSCULAR HEMOGLOBIN 24.1 pg (27.0-33.0); MEAN CORPUSCULAR VOLUME 75.5 fl (80.0-96.0); MONO # 1.1 10^3/uL (0.0-0.8); MONO % 11.3 % (2.0-8.0); NEUTROPHILS # 6.4 10^3/uL (1.5-8.5); NEUTROPHILS % 64.9 % (36.0-66.0); PLATELET COUNT, AUTOMATED 284 10^3/uL (150-450); RED BLOOD COUNT 4.89 10^6/uL (4.00-5.40); WHITE BLOOD COUNT 9.9 10^3/uL (4.0-10.0)
[2023-02-21] MEDS: SERTRALINE HCL 25 MG TABLET PO SCH (08:24)
[2023-02-21] MEDS: DOCUSATE SODIUM 100MG CAPSULE PO SCH (08:24)
[2023-02-21] MEDS: HEPARIN SOD (PORCINE) 5000UNITS/ML 1ML VIAL/SYRINGE SC SCH (08:24)
[2023-02-21] MEDS: **hydrALAZINE HCL** 25 MG TAB PO SCH (08:24)
[2023-02-21 08:25] VITALS: BP 148/76
[2023-02-21] MEDS: LACTOBACILLUS ACIDOPHILUS CAP (BACID) PO SCH (08:25)
[2023-02-21] MEDS: FAMOTIDINE 20 MG TAB PO SCH (08:25)
[2023-02-21] MEDS: bisoproloL fumarate 5 MG TAB PO SCH (08:25)
[2023-02-21] MEDS: VALSARTAN 80 MG TAB (DIOVAN) PO SCH (08:25)
[2023-02-21] MEDS: levETIRAcetam 250MG TABLET (KEPPRA) PO SCH (08:26)
[2023-02-21] MEDS: DOXYCYCLINE HYCLATE 100MG TABLET PO SCH (08:26)
[2023-02-21] MEDS: FERROUS GLUCONATE 324 MG TAB PO SCH (08:26)
[2023-02-21] MEDS: REMEDY PHYTOPLEX Z-GUARD PASTE 113GM TUBE (FROM STOREROOM PRODUCT) TOP SCH (08:30)
[2023-02-21] MEDS ORDERED: BISO5TAB14 PO (09:25)
[2023-02-21] MEDS ORDERED: GABA-1171 PO (09:25)
[2023-02-21] MEDS ORDERED: FAMO40TA3 PO (09:25)
[2023-02-21] MEDS ORDERED: SERT25TA21 PO (09:25)
[2023-02-21] MEDS ORDERED: DIOV80TA3 PO (09:25)
[2023-02-21] MEDS ORDERED: DOXY100T PO (09:25)
[2023-02-21] MEDS ORDERED: LEVO25TA5 PO (09:25)
[2023-02-21] MEDS ORDERED: AMLO1TAB24 PO (09:25)
[2023-02-21] MEDS ORDERED: FURO20TA2 PO (09:25)
[2023-02-21] MEDS ORDERED: HYDR25TA PO (09:25)
[2023-02-21] MEDS ORDERED: KEPP250T5 PO (09:25)
== END 2023-02-21 14:30 | disposition home or self-care (01) | DRG 101 ==
LOC: M PM&R 14:50
PROVIDERS: ADMIT Physical Medicine & Rehabilitation; ATTEND Physical Medicine & Rehabilitation
DX: G40.409 Other generalized epilepsy and epileptic syndromes, not intractable, without status epilepticus (principal); I50.32 Chronic diastolic (congestive) heart failure; E87.1 Hypo-osmolality and hyponatremia; L03.311 Cellulitis of abdominal wall; R53.1 Weakness; I11.0 Hypertensive heart disease with heart failure; E78.5 Hyperlipidemia, unspecified; E03.9 Hypothyroidism, unspecified; I87.2 Venous insufficiency (chronic) (peripheral); F41.9 Anxiety disorder, unspecified; F07.81 Postconcussional syndrome; D72.829 Elevated white blood cell count, unspecified; R21 Rash and other nonspecific skin eruption; B02.9 Zoster without complications; Z74.1 Need for assistance with personal care; Z74.09 Other reduced mobility; Z98.49 Cataract extraction status, unspecified eye; Z79.899 Other long term (current) drug therapy; Z79.890 Hormone replacement therapy; Z88.0 Allergy status to penicillin; Z91.018 Allergy to other foods

== ENCOUNTER → 2023-04-12 | Outpatient (CLI) | payer MEDICARE, MEDICAID ==
[~2023-04-12] MED LIST changes: +AMLO1TAB24 PO; +DIOV80TA3 PO; +DOXY100T PO; +GABA-1171 PO; +HYDR25TA PO; +KEPP1TAB PO; +KEPP250T5 PO; +SERT25TA21 PO
== END ==
LOC: M RAD 08:31
PROVIDERS: ATTEND Internal Medicine
DX: R74.8 Abnormal levels of other serum enzymes (principal); K80.20 Calculus of gallbladder without cholecystitis without obstruction; Q44.6 Cystic disease of liver

== ENCOUNTER 2023-04-20 14:37 | Emergency (ER) | payer MEDICARE, MEDICAID ==
[~2023-04-20] VITALS: Ht 160 cm; Wt 63.6 kg
[2023-04-20 16:25] LABS: BASO # 0.1 10^3/uL (0.0-0.2); BASO % 0.8 % (0.0-1.0); EOS # 0.1 10^3/uL (0.0-0.5); EOS % 1.1 % (0.0-3.0); HEMATOCRIT 36.5 % (36.0-47.0); HEMOGLOBIN 11.6 g/dl (12.0-15.5); LYMPH # 1.3 10^3/uL (1.5-5.0); LYMPH % 13.5 % (24.0-44.0); MEAN CORPUSCULAR HEMOGLOBIN 24.5 pg (27.0-33.0); MEAN CORPUSCULAR HGB CONC 31.8 g/dl (32.0-36.5); MEAN CORPUSCULAR VOLUME 77.2 fl (80.0-96.0); MONO # 1.1 10^3/uL (0.0-0.8); MONO % 12.2 % (2.0-8.0); NEUTROPHILS # 6.7 10^3/uL (1.5-8.5); PLATELET COUNT, AUTOMATED 250 10^3/uL (150-450); RED BLOOD COUNT 4.73 10^6/uL (4.00-5.40); WHITE BLOOD COUNT 9.3 10^3/uL (4.0-10.0)
[2023-04-20 16:52] LABS: BLOOD UREA NITROGEN 17 MG/DL (9-23); CALCIUM LEVEL 8.8 MG/DL (8.3-10.6); CARBON DIOXIDE LEVEL 30 MMOL/L (20-31); CHLORIDE LEVEL 107 MMOL/L (98-107); CREATININE FOR GFR 0.67 MG/DL (0.55-1.30); GLOMERULAR FILTRATION RATE > 60.0 (>32); GLUCOSE, FASTING 90 MG/DL (74-106); POTASSIUM SERUM 3.9 MMOL/L (3.5-5.1); SODIUM LEVEL 141 MMOL/L (136-145)
[2023-04-20 16:54] LABS: FREE T4 0.98 NG/DL (0.89-1.76); THYROID STIMULATING HORMONE 2.717 uIU/ML (0.55-4.78)
[2023-04-20 19:13] VITALS: BP 136/74; TEMP 98.8; O2SAT 98
== END 2023-04-20 19:17 | disposition home or self-care (01) ==
LOC: M ED 14:37 → EDBD 14:37 → M ED 19:17
DX: S79.911A Unspecified injury of right hip, initial encounter (principal); W07.XXXA Fall from chair, initial encounter; Y92.009 Unspecified place in unspecified non-institutional (private) residence as the place of occurrence of the external cause; Y93.89 Activity, other specified; Y99.8 Other external cause status; I10 Essential (primary) hypertension; E03.9 Hypothyroidism, unspecified; G40.909 Epilepsy, unspecified, not intractable, without status epilepticus; F41.9 Anxiety disorder, unspecified; I87.2 Venous insufficiency (chronic) (peripheral); Z88.0 Allergy status to penicillin; Z91.018 Allergy to other foods; Z79.899 Other long term (current) drug therapy

== ENCOUNTER → 2023-05-24 | Outpatient (REF) | payer MEDICARE, MEDICAID, OTHER | LOC: M LAB REF 16:03 | PROVIDERS: ATTEND Internal Medicine | DX: N39.0 Urinary tract infection, site not specified (principal) ==

== ENCOUNTER → 2023-06-25 | Outpatient (REF) | payer MEDICARE, MEDICAID, OTHER ==
[2023-06-25 18:19] LABS: PERCENT SATURATION 12.2 % (13.2-45.0)
[2023-06-25 18:22] LABS: FERRITIN 29.2 NG/ML (7.3-270.7)
== END ==
LOC: M LAB REF 17:03
PROVIDERS: ATTEND Internal Medicine
DX: R41.81 Age-related cognitive decline (principal); D50.9 Iron deficiency anemia, unspecified

== ENCOUNTER 2023-08-30 10:12 | Emergency (ER) | payer MEDICARE, MEDICAID ==
[~2023-08-30] VITALS: Ht 160 cm; Wt 61.3 kg
[2023-08-30 10:12] VITALS: TEMP 97.7
[2023-08-30] MEDS ORDERED: SERT50TA29 (10:27)
[2023-08-30] MEDS ORDERED: GABA-1171 PO (10:27)
[2023-08-30] MEDS ORDERED: FERR32TA (10:27)
[2023-08-30 11:15] LABS: BASO # 0.1 10^3/uL (0.0-0.2); BASO % 0.8 % (0.0-1.0); EOS # 0.1 10^3/uL (0.0-0.5); EOS % 1.5 % (0.0-3.0); HEMATOCRIT 38.4 % (36.0-47.0); HEMOGLOBIN 11.8 g/dl (12.0-15.5); LYMPH # 1.2 10^3/uL (1.5-5.0); LYMPH % 16.4 % (24.0-44.0); MEAN CORPUSCULAR HEMOGLOBIN 23.4 pg (27.0-33.0); MEAN CORPUSCULAR HGB CONC 30.7 g/dl (32.0-36.5); MEAN CORPUSCULAR VOLUME 76.2 fl (80.0-96.0); MONO # 0.9 10^3/uL (0.0-0.8); MONO % 11.6 % (2.0-8.0); NEUTROPHILS # 5.2 10^3/uL (1.5-8.5); NEUTROPHILS % 69.3 % (36.0-66.0); PLATELET COUNT, AUTOMATED 254 10^3/uL (150-450); RED BLOOD COUNT 5.04 10^6/uL (4.00-5.40); WHITE BLOOD COUNT 7.5 10^3/uL (4.0-10.0)
[2023-08-30 11:36] LABS: LIPASE 30 U/L (12-53)
[2023-08-30 11:38] LABS: ALBUMIN 3.1 G/DL (3.2-5.2); ALKALINE PHOSPHATASE 129 U/L (46-116); ALT/SGPT 14 U/L (7.0-40); AST/SGOT 11 U/L (<34); BILIRUBIN,DIRECT 0.1 MG/DL (<0.4); BILIRUBIN,TOTAL 0.3 MG/DL (0.3-1.2); BLOOD UREA NITROGEN 20 MG/DL (9-23); CALCIUM LEVEL 9.1 MG/DL (8.3-10.6); CARBON DIOXIDE LEVEL 27 MMOL/L (20-31); CHLORIDE LEVEL 106 MMOL/L (98-107); CK-MB VALUE MASS < 1.0 NG/ML (<3.6); CPK CREATINE PHOSPHOKINASE 43 U/L (34-145); CREATININE FOR GFR 0.56 MG/DL (0.55-1.30); GLOMERULAR FILTRATION RATE > 60.0 (>32); GLUCOSE, FASTING 91 MG/DL (74-106); MB/CK RELATIVE INDEX 2.32 (< OR =4); POTASSIUM SERUM 4.1 MMOL/L (3.5-5.1); SODIUM LEVEL 139 MMOL/L (136-145); TOTAL PROTEIN 6.5 G/DL (5.7-8.2)
[2023-08-30 11:40] LABS: FREE T4 1.03 NG/DL (0.89-1.76); THYROID STIMULATING HORMONE 2.668 uIU/ML (0.55-4.78)
[2023-08-30 12:12] LABS: CK-MB VALUE MASS < 1.0 NG/ML (<3.6)
[2023-08-30 12:14] LABS: CPK CREATINE PHOSPHOKINASE 39 U/L (34-145); MB/CK RELATIVE INDEX 2.56 (< OR =4)
[2023-08-30] MEDS ORDERED: ISOVUE-370 76% 100ML VIAL As Ordered ONE (13:03)
[2023-08-30] MEDS ORDERED: SUCRALFATE SUSP 1GM/10ML UD PO ONE (13:15)
[2023-08-30] MEDS ORDERED: DOXY100C82 PO (13:53)
[2023-08-30 14:57] LABS: CK-MB VALUE MASS < 1.0 NG/ML (<3.6)
[2023-08-30 14:59] LABS: CPK CREATINE PHOSPHOKINASE 36 U/L (34-145); MB/CK RELATIVE INDEX 2.77 (< OR =4)
[2023-08-30 15:00] VITALS: BP 162/70; O2SAT 93
== END 2023-08-30 15:30 | disposition home or self-care (01) ==
LOC: M ED 10:12
DX: J20.9 Acute bronchitis, unspecified (principal); I10 Essential (primary) hypertension; E78.5 Hyperlipidemia, unspecified; I51.7 Cardiomegaly; Z79.899 Other long term (current) drug therapy; Z88.0 Allergy status to penicillin; Z91.018 Allergy to other foods
CPT/HCPCS: 71045; 71275; 80048; 80076; 82550; 82553; 83690; 84439; 84443; 84484; 85025; 87040; 87486; 87581; 87633; 87798; 93005; 93041; 94760; 99285; Q9967

== ENCOUNTER → 2023-09-02 | Outpatient (REF) | payer MEDICARE, MEDICAID ==
[~2023-09-02] MED LIST changes: +DOXY100C82 PO; +FERR32TA; +SERT50TA29
[2023-09-02 19:11] LABS: BASO # 0.1 10^3/uL (0.0-0.2); BASO % 0.9 % (0.0-1.0); EOS # 0.1 10^3/uL (0.0-0.5); EOS % 1.5 % (0.0-3.0); HEMATOCRIT 39.3 % (36.0-47.0); HEMOGLOBIN 11.9 g/dl (12.0-15.5); LYMPH # 1.4 10^3/uL (1.5-5.0); LYMPH % 15.6 % (24.0-44.0); MEAN CORPUSCULAR HEMOGLOBIN 23.5 pg (27.0-33.0); MEAN CORPUSCULAR HGB CONC 30.3 g/dl (32.0-36.5); MEAN CORPUSCULAR VOLUME 77.5 fl (80.0-96.0); MONO # 0.9 10^3/uL (0.0-0.8); NEUTROPHILS # 6.3 10^3/uL (1.5-8.5); NEUTROPHILS % 71.7 % (36.0-66.0); PLATELET COUNT, AUTOMATED 267 10^3/uL (150-450); RED BLOOD COUNT 5.07 10^6/uL (4.00-5.40); WHITE BLOOD COUNT 8.8 10^3/uL (4.0-10.0)
== END ==
LOC: M LAB REF 16:44
PROVIDERS: ATTEND Internal Medicine
DX: E03.9 Hypothyroidism, unspecified (principal); J30.9 Allergic rhinitis, unspecified; G40.909 Epilepsy, unspecified, not intractable, without status epilepticus

== ENCOUNTER → 2023-10-16 | Outpatient (REF) | payer MEDICARE, MEDICAID ==
[~2023-10-16] MED LIST changes: +HYDR-161 PO; -HYDR10TAB PO
== END ==
LOC: M LAB REF 16:18
PROVIDERS: ATTEND Nurse Practitioner Family
DX: N39.0 Urinary tract infection, site not specified (principal); R30.0 Dysuria

== ENCOUNTER → 2023-10-21 | Outpatient (CLI) | payer MEDICARE, MEDICAID ==
[~2023-10-21] MED LIST changes: -HYDR25TA PO; +HYDR25TA88 PO
== END ==
LOC: M PLARAD 12:49
PROVIDERS: ATTEND Internal Medicine
DX: R91.8 Other nonspecific abnormal finding of lung field (principal)
CPT/HCPCS: 78815; A9552

== ENCOUNTER → 2023-11-27 | Outpatient (REF) | payer MEDICARE, MEDICAID ==
[2023-11-27 16:21] LABS: BASO # 0.1 10^3/uL (0.0-0.2); BASO % 0.9 % (0.0-1.0); EOS # 0.1 10^3/uL (0.0-0.5); EOS % 1.4 % (0.0-3.0); HEMATOCRIT 38.6 % (36.0-47.0); HEMOGLOBIN 11.8 g/dl (12.0-15.5); LYMPH # 1.6 10^3/uL (1.5-5.0); LYMPH % 16.6 % (24.0-44.0); MEAN CORPUSCULAR HEMOGLOBIN 23.7 pg (27.0-33.0); MEAN CORPUSCULAR HGB CONC 30.6 g/dl (32.0-36.5); MEAN CORPUSCULAR VOLUME 77.7 fl (80.0-96.0); MONO % 10.2 % (2.0-8.0); NEUTROPHILS # 6.7 10^3/uL (1.5-8.5); NEUTROPHILS % 70.7 % (36.0-66.0); PLATELET COUNT, AUTOMATED 270 10^3/uL (150-450); RED BLOOD COUNT 4.97 10^6/uL (4.00-5.40); WHITE BLOOD COUNT 9.5 10^3/uL (4.0-10.0)
== END ==
LOC: M LAB REF 15:20
PROVIDERS: ATTEND Internal Medicine
DX: D64.9 Anemia, unspecified (principal)

== ENCOUNTER → 2023-12-04 | Outpatient (CLI) | payer MEDICARE, MEDICAID | LOC: M WHC 12:32 | PROVIDERS: ATTEND Internal Medicine | DX: Z12.31 Encounter for screening mammogram for malignant neoplasm of breast (principal) ==

== ENCOUNTER → 2023-12-27 | Outpatient (REF) | payer MEDICARE, MEDICAID ==
[~2023-12-27] MED LIST changes: +LEVOTAB10
== END ==
LOC: M LAB REF 16:37
PROVIDERS: ATTEND Internal Medicine
DX: N39.0 Urinary tract infection, site not specified (principal)

== ENCOUNTER → 2024-01-30 | Outpatient (CLI) | payer MEDICARE, MEDICAID ==
[~2024-01-30] MED LIST changes: +LIDOCAINE 1% MDV 20ML VIAL As Ordered ONE
[2024-01-30 08:37] VITALS: TEMP 97.5
[2024-01-30 09:54] VITALS: BP 178/79; O2SAT 93
== END ==
LOC: M IRPRO 08:27
PROVIDERS: ATTEND Specialist
DX: C38.1 Malignant neoplasm of anterior mediastinum (principal)

== ENCOUNTER → 2024-02-07 | Outpatient (CLI) | payer MEDICARE, OTHER ==
[~2024-02-07] MED LIST changes: +BUSP5TA; +FLUT1BLS5; -LIDOCAINE 1% MDV 20ML VIAL As Ordered ONE; +NYST1CRE15 TOP; +VALS1TAB66
== END ==
LOC: M RAD 11:53
PROVIDERS: ATTEND Nurse Practitioner
DX: C90.30 Solitary plasmacytoma not having achieved remission (principal)

== ENCOUNTER → 2024-02-11 | Outpatient (REF) | payer MEDICARE ==
[~2024-02-11] MED LIST changes: -BUSP5TA; -FLUT1BLS5; -NYST1CRE15 TOP; -VALS1TAB66
== END ==
LOC: M LAB REF 16:30
PROVIDERS: ATTEND Internal Medicine
DX: R30.0 Dysuria (principal)

== ENCOUNTER → 2024-02-27 | Outpatient (CLI) | payer MEDICARE, MEDICAID ==
[~2024-02-27] MED LIST changes: +BUSP5TA; +FLUT1BLS5; +LIDOCAINE 1% MDV 20ML VIAL As Ordered ONE; +VALS1TAB66
[2024-02-27 12:12] VITALS: TEMP 98.1
[2024-02-27 13:13] LABS: BASO # 0.1 10^3/uL (0.0-0.2); BASO % 0.8 % (0.0-1.0); EOS # 0.2 10^3/uL (0.0-0.5); HEMATOCRIT 35.7 % (36.0-47.0); HEMOGLOBIN 11.2 g/dl (12.0-15.5); LYMPH # 1.3 10^3/uL (1.5-5.0); LYMPH % 17.5 % (24.0-44.0); MEAN CORPUSCULAR HEMOGLOBIN 23.9 pg (27.0-33.0); MEAN CORPUSCULAR HGB CONC 31.4 g/dl (32.0-36.5); MEAN CORPUSCULAR VOLUME 76.3 fl (80.0-96.0); MONO # 0.7 10^3/uL (0.0-0.8); NEUTROPHILS # 5.1 10^3/uL (1.5-8.5); NEUTROPHILS % 69.4 % (36.0-66.0); PLATELET COUNT, AUTOMATED 212 10^3/uL (150-450); RED BLOOD COUNT 4.68 10^6/uL (4.00-5.40); WHITE BLOOD COUNT 7.4 10^3/uL (4.0-10.0)
[2024-02-27 13:21] VITALS: BP 173/75; O2SAT 91
== END ==
LOC: M IRPRO 12:00
PROVIDERS: ATTEND Specialist
DX: C90.30 Solitary plasmacytoma not having achieved remission (principal)

== ENCOUNTER → 2024-03-12 | Outpatient (CLI) | payer MEDICARE, MEDICAID ==
[~2024-03-12] MED LIST changes: -LIDOCAINE 1% MDV 20ML VIAL As Ordered ONE; +NYST1CRE15 TOP
== END ==
LOC: M ONCR 14:17
PROVIDERS: ATTEND General Practice
DX: C90.30 Solitary plasmacytoma not having achieved remission (principal); Z82.49 Family history of ischemic heart disease and other diseases of the circulatory system; Z83.3 Family history of diabetes mellitus; Z88.0 Allergy status to penicillin; Z88.1 Allergy status to other antibiotic agents; Z88.8 Allergy status to other drugs, medicaments and biological substances; Z91.018 Allergy to other foods

== ENCOUNTER → 2024-04-01 | Outpatient (CLI) | payer MEDICARE, MEDICAID ==
[~2024-04-01] MED LIST changes: +VALT1TAB PO
== END ==
LOC: M RAD 14:18
PROVIDERS: ATTEND Specialist
DX: C90.30 Solitary plasmacytoma not having achieved remission (principal)

== ENCOUNTER → 2024-04-15 | Outpatient (RCR) | payer MEDICAID, MEDICARE, OTHER | LOC: M ONCR 03-24 10:18 | PROVIDERS: ATTEND General Practice | DX: Z51.0 Encounter for antineoplastic radiation therapy (principal); C90.30 Solitary plasmacytoma not having achieved remission ==

== ENCOUNTER 2024-05-08 11:27 | Outpatient (RCR) | payer MEDICARE | END 2024-05-16 | LOC: M ONCR 11:27 | PROVIDERS: ATTEND General Practice | DX: Z51.0 Encounter for antineoplastic radiation therapy (principal); C90.30 Solitary plasmacytoma not having achieved remission ==

== ENCOUNTER → 2024-06-17 | Outpatient (REF) | payer MEDICARE, MEDICAID, OTHER ==
[2024-06-17 18:14] LABS: PERCENT SATURATION 9.4 % (13.2-45.0)
[2024-06-17 18:16] LABS: FERRITIN 31.2 NG/ML (7.3-270.7)
[2024-06-18 07:30] LABS: EOSINOPHILS 2 % (0-3); LYMPHOCYTES 10 % (16-44); MONOCYTES 7 % (0-5); NEUTROPHILS 81 % (28-66)
[2024-06-18 07:33] LABS: PLATELET ESTIMATE NORMAL (NORMAL)
== END ==
LOC: M LAB REF 16:20
PROVIDERS: ATTEND Internal Medicine
DX: D50.9 Iron deficiency anemia, unspecified (principal)

== ENCOUNTER → 2024-07-07 | Outpatient (REF) | payer MEDICARE, MEDICAID, OTHER ==
[2024-07-09 11:37] LABS: QuantiFERON-TB Gold Plus NEGATIVE (NEGATIVE)
== END ==
LOC: M LAB REF 12:34
PROVIDERS: ATTEND Internal Medicine
DX: Z11.1 Encounter for screening for respiratory tuberculosis (principal)

== ENCOUNTER → 2024-08-11 | Outpatient (CLI) | payer MEDICARE, OTHER | LOC: M ONCR 10:49 | PROVIDERS: ATTEND General Practice | DX: C90.30 Solitary plasmacytoma not having achieved remission (principal); Z79.51 Long term (current) use of inhaled steroids; Z79.890 Hormone replacement therapy; Z79.899 Other long term (current) drug therapy; Z88.0 Allergy status to penicillin; Z88.1 Allergy status to other antibiotic agents; Z88.2 Allergy status to sulfonamides; Z91.018 Allergy to other foods; Z92.3 Personal history of irradiation ==

== ENCOUNTER 2024-08-12 12:51 | Emergency (ER) | payer MEDICARE, OTHER ==
[~2024-08-12] VITALS: Ht 160 cm; Wt 55.9 kg
[2024-08-12 17:55] LABS: BASO # 0.1 10^3/uL (0.0-0.2); BASO % 0.7 % (0.0-1.0); EOS # 0.1 10^3/uL (0.0-0.5); EOS % 1.2 % (0.0-3.0); HEMATOCRIT 39.5 % (36.0-47.0); HEMOGLOBIN 12.2 g/dl (12.0-15.5); LYMPH # 0.9 10^3/uL (1.5-5.0); LYMPH % 12.2 % (24.0-44.0); MEAN CORPUSCULAR HEMOGLOBIN 24.6 pg (27.0-33.0); MEAN CORPUSCULAR HGB CONC 30.9 g/dl (32.0-36.5); MEAN CORPUSCULAR VOLUME 79.6 fl (80.0-96.0); MONO # 0.8 10^3/uL (0.0-0.8); MONO % 10.4 % (2.0-8.0); NEUTROPHILS # 5.5 10^3/uL (1.5-8.5); NEUTROPHILS % 75.2 % (36.0-66.0); PLATELET COUNT, AUTOMATED 260 10^3/uL (150-450); RED BLOOD COUNT 4.96 10^6/uL (4.00-5.40); WHITE BLOOD COUNT 7.3 10^3/uL (4.0-10.0)
[2024-08-12 18:25] LABS: ALBUMIN 3.1 G/DL (3.2-5.2); ALKALINE PHOSPHATASE 138 U/L (35-104); ALT/SGPT 12 U/L (7.0-40); AST/SGOT 13 U/L (<34); BILIRUBIN,DIRECT 0.1 MG/DL (<0.4); BILIRUBIN,TOTAL 0.5 MG/DL (0.3-1.2); BLOOD UREA NITROGEN 14 MG/DL (9-23); CALCIUM LEVEL 9.5 MG/DL (8.3-10.6); CARBON DIOXIDE LEVEL 27 MMOL/L (20-31); CHLORIDE LEVEL 107 MMOL/L (98-107); CREATININE FOR GFR 0.57 MG/DL (0.55-1.30); GLOMERULAR FILTRATION RATE > 60.0 (>32); GLUCOSE, FASTING 95 MG/DL (74-106); POTASSIUM SERUM 3.6 MMOL/L (3.5-5.1); SODIUM LEVEL 141 MMOL/L (136-145); TOTAL PROTEIN 6.6 G/DL (5.7-8.2)
[2024-08-12 18:57] VITALS: BP 166/77; TEMP 98; O2SAT 95
== END 2024-08-12 18:59 | disposition home or self-care (01) ==
LOC: EDBD 12:51 → M ED 12:51
DX: R50.9 Fever, unspecified (principal); R00.0 Tachycardia, unspecified; I10 Essential (primary) hypertension; G40.89 Other seizures; F03.90 Unspecified dementia, unspecified severity, without behavioral disturbance, psychotic disturbance, mood disturbance, and anxiety; Z88.0 Allergy status to penicillin; Z88.1 Allergy status to other antibiotic agents; Z88.2 Allergy status to sulfonamides; Z91.018 Allergy to other foods; Z79.1 Long term (current) use of non-steroidal anti-inflammatories (NSAID); Z79.899 Other long term (current) drug therapy

== ENCOUNTER → 2024-08-20 | Outpatient (CLI) | payer MEDICARE, MEDICAID | LOC: M RAD 13:07 | PROVIDERS: ATTEND General Practice | DX: C90.30 Solitary plasmacytoma not having achieved remission (principal); K80.20 Calculus of gallbladder without cholecystitis without obstruction ==

== ENCOUNTER → 2024-10-23 | Outpatient (REF) | payer MEDICARE, OTHER ==
[~2024-10-23] MED LIST changes: +ATEN25TA; +DOXY-442 PO; -DOXY100C82 PO; +HYDR-643; +MIRA3350 PO; +MUPI30CR; +TRIA1CRE5
[2024-10-23 08:17] LABS: BASO # 0.1 10^3/uL (0.0-0.2); BASO % 1.1 % (0.0-1.0); EOS # 0.2 10^3/uL (0.0-0.5); EOS % 3.1 % (0.0-3.0); HEMATOCRIT 40.8 % (36.0-47.0); HEMOGLOBIN 12.5 g/dl (12.0-15.5); LYMPH # 0.8 10^3/uL (1.5-5.0); LYMPH % 12.7 % (24.0-44.0); MEAN CORPUSCULAR HEMOGLOBIN 23.3 pg (27.0-33.0); MEAN CORPUSCULAR HGB CONC 30.6 g/dl (32.0-36.5); MEAN CORPUSCULAR VOLUME 76.1 fl (80.0-96.0); MONO # 0.7 10^3/uL (0.0-0.8); MONO % 10.7 % (2.0-8.0); NEUTROPHILS # 4.6 10^3/uL (1.5-8.5); NEUTROPHILS % 71.9 % (36.0-66.0); PLATELET COUNT, AUTOMATED 253 10^3/uL (150-450); RED BLOOD COUNT 5.36 10^6/uL (4.00-5.40); WHITE BLOOD COUNT 6.4 10^3/uL (4.0-10.0)
== END ==
PROVIDERS: ATTEND Specialist
DX: C34.90 Malignant neoplasm of unspecified part of unspecified bronchus or lung (principal)

== ENCOUNTER → 2024-11-02 | Outpatient (REF) | payer MEDICARE, OTHER ==
[~2024-11-02] MED LIST changes: -DOXY-442 PO; +DOXY100C82 PO
[2024-11-03 11:42] LABS: APPEARANCE, URINE HAZY (CLEAR); BACTERIA, URINE AUTO 1+ (NEGATIVE); BILIRUBIN, URINE AUTO NEGATIVE (NEGATIVE); BLOOD, URINE BLOOD 1+ (NEGATIVE); COLOR, URINE YELLOW (YELLOW); GLUCOSE, URINE (UA) AUTO NEGATIVE (NEGATIVE); KETONE, URINE AUTO NEGATIVE (NEGATIVE); LEUKOCYTE ESTERASE, URINE AUTO 3+ (NEGATIVE); NITRITE, URINE AUTO NEGATIVE (NEGATIVE); PROTEIN, URINE AUTO NEGATIVE (NEGATIVE); RBC, URINE AUTO 11 /HPF (0-3); SPECIFIC GRAVITY URINE AUTO 1.004 (1.002-1.035); SQUAMOUS EPITHELIAL CELL UR AU 0 /HPF (0-6); UROBILINOGEN, URINE AUTO 0.2 mg/dL (0.0-2.0); WBC, URINE AUTO 11 /HPF (0-3)
== END ==
PROVIDERS: ATTEND Internal Medicine
DX: R82.90 Unspecified abnormal findings in urine (principal)

== ENCOUNTER → 2024-12-09 | Outpatient (REF) | payer MEDICARE, MEDICAID ==
[~2024-12-09] MED LIST changes: +DOXY-442 PO; -DOXY100C82 PO
[2024-12-09 10:17] LABS: BASO # 0.1 10^3/uL (0.0-0.2); BASO % 0.9 % (0.0-1.0); EOS # 0.2 10^3/uL (0.0-0.5); HEMATOCRIT 38.2 % (36.0-47.0); HEMOGLOBIN 11.9 g/dl (12.0-15.5); LYMPH # 0.7 10^3/uL (1.5-5.0); LYMPH % 13.3 % (24.0-44.0); MEAN CORPUSCULAR HEMOGLOBIN 23.7 pg (27.0-33.0); MEAN CORPUSCULAR HGB CONC 31.2 g/dl (32.0-36.5); MEAN CORPUSCULAR VOLUME 76.1 fl (80.0-96.0); MONO # 0.7 10^3/uL (0.0-0.8); NEUTROPHILS # 3.8 10^3/uL (1.5-8.5); NEUTROPHILS % 69.3 % (36.0-66.0); PLATELET COUNT, AUTOMATED 266 10^3/uL (150-450); RED BLOOD COUNT 5.02 10^6/uL (4.00-5.40); WHITE BLOOD COUNT 5.5 10^3/uL (4.0-10.0)
[2024-12-09 10:42] LABS: IMMUNOGLOBULIN A 277.3 MG/DL (40-350); IMMUNOGLOBULIN G 1140 MG/DL (650-1600); IMMUNOGLOBULIN M 132.9 MG/DL (50-300)
[2024-12-09 10:44] LABS: ALBUMIN 2.9 G/DL (3.2-5.2); ALKALINE PHOSPHATASE 119 U/L (35-104); ALT/SGPT 10 U/L (7.0-40); AST/SGOT 11 U/L (<34); BILIRUBIN,TOTAL 0.4 MG/DL (0.3-1.2); BLOOD UREA NITROGEN 11 MG/DL (9-23); CALCIUM LEVEL 8.6 MG/DL (8.3-10.6); CARBON DIOXIDE LEVEL 29 MMOL/L (20-31); CHLORIDE LEVEL 108 MMOL/L (98-107); GLOMERULAR FILTRATION RATE > 60.0 (>32); GLUCOSE, FASTING 74 MG/DL (74-106); POTASSIUM SERUM 4.7 MMOL/L (3.5-5.1); SODIUM LEVEL 143 MMOL/L (136-145); TOTAL PROTEIN 6.3 G/DL (5.7-8.2)
[2024-12-10 09:57] LABS: T P ELECTROPHORESIS SO 6.1 g/dL (6.1-8.1)
== END ==
PROVIDERS: ATTEND Specialist
DX: C90.30 Solitary plasmacytoma not having achieved remission (principal)

== ENCOUNTER → 2025-01-20 | Outpatient (REF) | payer MEDICARE, OTHER ==
[2025-01-20 12:50] LABS: PERCENT SATURATION 17.1 % (13.2-45.0)
[2025-01-20 12:53] LABS: FERRITIN 31.5 NG/ML (7.3-270.7)
== END ==
LOC: M LAB REF 12:06
PROVIDERS: ATTEND Internal Medicine
DX: D50.9 Iron deficiency anemia, unspecified (principal)

== ENCOUNTER 2025-05-01 11:23 | Inpatient (IN) | payer MEDICARE, MEDICAID ==
[~2025-05-01] VITALS: Ht 157.5 cm; Wt 59.2 kg
[2025-05-01] MEDS: TIOTROPIUM BROM 2.5MCG/ACTUATION 4GM INH INH SCH (08:00)
[~2025-05-01 11:23] MED LIST changes: -ATEN25TA; +ATEN25TA PO; +BETA0.0543
[2025-05-01] MEDS: LIDOCAINE 2% 5 ML JELLY UROJET TOP ONE (11:40)
[2025-05-01] MEDS: IPRATROPIUM 0.5 MG/ALBUTEROL 2.5 MG INH SOL UD 3 ML NEB ONE (11:57)
[2025-05-01] MEDS: NS 500 ML IV ONE (12:02)
[2025-05-01 12:09] LABS: VENOUS BASE EXCESS -0.6 (-2.0-2.0); VENOUS HCO3 23.1 MMOL/L (23.0-27.0); VENOUS O2 SATURATION 96.2 % (60.0-80.0); VENOUS PARTIAL PRESSURE CO2 34.8 mmHg (38.0-50.0); VENOUS PARTIAL PRESSURE O2 81.4 mmHg (30.0-50.0); VENOUS PH 7.440 UNITS (7.330-7.430); VENOUS STANDARD HCO3 24.0 MMOL/L; VENOUS TOTAL CO2 24.2 MMOL/L (24.0-28.0)
[2025-05-01 12:14] LABS: ABG BASE EXCESS -0.2 (-2.0-2.0); ABG HCO3 23.6 MMOL/L (22.0-26.0); ABG O2 SATURATION 98.2 % (95.0-99.0); ABG PARTIAL PRESSURE CO2 35.6 mmHg (35.0-45.0); ABG PARTIAL PRESSURE O2 108.4 mmHg (75.0-100.0); ABG STANDARD HCO3 24.4 MMOL/L. (22.0-26.0); ABG TOTAL CO2 24.7 MMOL/L (23.0-31.0); ABG pH (ARTERIAL) 7.440 UNITS (7.350-7.450)
[2025-05-01 12:14] LABS: BASO # 0.1 10^3/uL (0.0-0.2); BASO % 0.5 % (0.0-1.0); EOS # 0.1 10^3/uL (0.0-0.5); EOS % 0.5 % (0.0-3.0); LYMPH # 0.7 10^3/uL (1.5-5.0); LYMPH % 6.4 % (24.0-44.0); MONO # 1.3 10^3/uL (0.0-0.8); MONO % 11.2 % (2.0-8.0); NEUTROPHILS # 9.4 10^3/uL (1.5-8.5); NEUTROPHILS % 80.8 % (36.0-66.0)
[2025-05-01 12:19] LABS: PLATELET COUNT, AUTOMATED 229 10^3/uL (150-450)
[2025-05-01] MEDS ORDERED: ISOVUE-370 76% 100 ML VIAL As Ordered ONE (12:42)
[2025-05-01 12:45] LABS: ALT/SGPT 12.0 U/L (7.0-40); AST/SGOT 17.0 U/L (<34); CALCIUM LEVEL 8.1 MG/DL (8.3-10.6); CARBON DIOXIDE LEVEL 23.0 MMOL/L (20-31); CHLORIDE LEVEL 103.0 MMOL/L (98-107); CK-MB VALUE MASS 2.6 NG/ML (<3.6); CPK CREATINE PHOSPHOKINASE 55.0 U/L (34-145); CREATININE FOR GFR 0.64 MG/DL (0.55-1.30); GLOMERULAR FILTRATION RATE 84.4 (>32); MB/CK RELATIVE INDEX 4.72 (< OR =4); POTASSIUM SERUM 3.8 MMOL/L (3.5-5.1); SODIUM LEVEL 138.0 MMOL/L (136-145)
[2025-05-01 12:48] LABS: THYROXINE (T4) 7.3 UG/DL (4.5-10.9)
[2025-05-01] MEDS: ASPIRIN 81 MG CHEWABLE TABLET PO ONE (13:14)
[2025-05-01] MEDS: FUROSEMIDE 20 MG/2 ML VIAL IV ONE (13:15)
[2025-05-01 13:32] LABS: KETONE, URINE AUTO RFX NEGATIVE (NEGATIVE); LEUKOCYTE ESTERASE UR AUTO RFX NEGATIVE (NEGATIVE); MUCUS, URINE RFX SMALL (NEGATIVE); NITRITE, URINE AUTO RFX NEGATIVE (NEGATIVE); RBC, URINE AUTO RFX 0 /HPF (0-3); SQUAM EPITHELIAL CELL UR AURFX 0 /HPF (0-6); WBC, URINE AUTO RFX 1 /HPF (0-3)
[2025-05-01 13:51] LABS: CK-MB VALUE MASS 3.3 NG/ML (<3.6)
[2025-05-01 13:55] LABS: CPK CREATINE PHOSPHOKINASE 61.0 U/L (34-145); MB/CK RELATIVE INDEX 5.4 (< OR =4)
[2025-05-01] MEDS: FUROSEMIDE 40 MG/4 ML VIAL IV ONE (14:37)
[2025-05-01] MEDS ORDERED: ALBUTEROL SULFATE 2.5 MG/0.5 ML INH CONCENTRATE NEB SOLN INH PRN (17:00)
[2025-05-01] MEDS ORDERED: BETA5CR TOP (17:15)
[2025-05-01] MEDS ORDERED: ADVA1AER9 INH (17:15)
[2025-05-01] MEDS ORDERED: VALS1TAB66 PO (17:15)
[2025-05-01] MEDS ORDERED: SERT25TA85 PO (17:15)
[2025-05-01] MEDS ORDERED: MUPI2OI TOP (17:15)
[2025-05-01] MEDS ORDERED: VITA200020 PO (17:15)
[2025-05-01] MEDS ORDERED: HYDR-643 PO (17:15)
[2025-05-01] MEDS ORDERED: ALBU2.5V10 INH (17:15)
[2025-05-01] MEDS ORDERED: BUSP5TA PO (17:15)
[2025-05-01] MEDS ORDERED: FURO20TA2 PO (17:15)
[2025-05-01] MEDS ORDERED: KEPP250T5 PO (17:15)
[2025-05-01] MEDS ORDERED: ACET-897 PO (17:15)
[2025-05-01] MEDS ORDERED: FERR32TA PO (17:15)
[2025-05-01] MEDS ORDERED: HYDR25TA87 PO (17:15)
[2025-05-01] MEDS ORDERED: LEVO25TA5 PO (17:15)
[2025-05-01] MEDS ORDERED: LEVOTAB10 PO (17:15)
[2025-05-01] MEDS ORDERED: HOME MED LIST COMPLETE! XX SCH (17:20)
[2025-05-01] MEDS: ADVAIR HFA 115/21 MCG INHALER INH SCH (19:32)
[2025-05-01] MEDS: IPRATROPIUM 0.5 MG/ALBUTEROL 2.5 MG INH SOL UD 3 ML NEB SCH (19:32)
[2025-05-01] MEDS: busPIRone 5 MG TAB PO SCH (22:48)
[2025-05-01] MEDS: SERTRALINE HCL 25 MG TABLET PO SCH (22:48)
[2025-05-01] MEDS: ACETAMINOPHEN 500 MG TAB PO SCH (22:48)
[2025-05-01] MEDS: **hydrALAZINE HCL** 25 MG TAB PO SCH (22:49)
[2025-05-02] MEDS: BETAMETHASONE DIP 0.05% OINT 15 GM TOP SCH (05:42)
[2025-05-02 06:38] LABS: PLATELET COUNT, AUTOMATED 269 10^3/uL (150-450)
[2025-05-02] MEDS: LEVOTHYROXINE 25 MCG TABLET (0.025MG) PO SCH (06:39)
[2025-05-02 07:14] LABS: CALCIUM LEVEL 8.3 MG/DL (8.3-10.6); CARBON DIOXIDE LEVEL 28.0 MMOL/L (20-31); CHLORIDE LEVEL 104.0 MMOL/L (98-107); CREATININE FOR GFR 0.71 MG/DL (0.55-1.30); GLOMERULAR FILTRATION RATE 81.2 (>32); MAGNESIUM LEVEL 2.4 MG/DL (1.8-2.4); POTASSIUM SERUM 4.0 MMOL/L (3.5-5.1); SODIUM LEVEL 143.0 MMOL/L (136-145)
[2025-05-02 07:36] LABS: C REACTIVE PROTEIN QUANTITATIV 14.93 MG/DL (<1.0)
[2025-05-02] MEDS: SPIRONOLACTONE 25 MG TAB PO SCH (09:12)
[2025-05-02] MEDS: predniSONE 20 MG TAB PO SCH (09:12)
[2025-05-02] MEDS: VALSARTAN 80MG TAB PO SCH (09:14)
[2025-05-02] MEDS: FAMOTIDINE 20 MG TAB PO SCH (09:14)
[2025-05-02] MEDS: FUROSEMIDE 40 MG TAB PO SCH (09:14)
[2025-05-02] MEDS: ENOXAPARIN 40 MG/0.4 ML SYRINGE (J1650 PER 10MG) SC SCH (09:15)
[2025-05-02] MEDS: FERROUS GLUCONATE 324 MG TAB PO SCH (10:28)
[2025-05-03 21:00] VITALS: BP 147/68; TEMP 97.2; O2SAT 90
[2025-05-03 21:10] VITALS: O2SAT 86; O2SAT 88
[2025-05-03 23:30] VITALS: O2SAT 94
[2025-05-03 23:35] VITALS: O2SAT 88; O2SAT 90
[2025-05-04] VITALS (9 sets, daily range): BP systolic 108–142; BP diastolic 58–69; TEMP 96.8–97.3; O2SAT 84–98
[2025-05-04] MEDS ORDERED: PILL CUTTER 1 EACH XX ONE (08:48)
[2025-05-04 09:53] LABS: PLATELET COUNT, AUTOMATED 325 10^3/uL (150-450)
[2025-05-04 10:17] LABS: ALT/SGPT 14.0 U/L (7.0-40); AST/SGOT 10.0 U/L (<34); CALCIUM LEVEL 8.7 MG/DL (8.3-10.6); CARBON DIOXIDE LEVEL 30.0 MMOL/L (20-31); CHLORIDE LEVEL 105.0 MMOL/L (98-107); CREATININE FOR GFR 0.68 MG/DL (0.55-1.30); GLOMERULAR FILTRATION RATE 83.2 (>32); POTASSIUM SERUM 3.7 MMOL/L (3.5-5.1); SODIUM LEVEL 143.0 MMOL/L (136-145)
[2025-05-04] MEDS ORDERED: LASI20TA3 PO (20:58)
[2025-05-04] MEDS ORDERED: PRED20TA PO (20:58)
[2025-05-05] VITALS (10 sets, daily range): BP systolic 130–135; BP diastolic 62–75; TEMP 97.2; O2SAT 77–95
[2025-05-05 06:29] LABS: PLATELET COUNT, AUTOMATED 306 10^3/uL (150-450)
[2025-05-05 06:57] LABS: ALT/SGPT 13.0 U/L (7.0-40); AST/SGOT 11.0 U/L (<34); CALCIUM LEVEL 8.4 MG/DL (8.3-10.6); CARBON DIOXIDE LEVEL 31.0 MMOL/L (20-31); CHLORIDE LEVEL 103.0 MMOL/L (98-107); CREATININE FOR GFR 0.71 MG/DL (0.55-1.30); GLOMERULAR FILTRATION RATE 81.2 (>32); POTASSIUM SERUM 4.1 MMOL/L (3.5-5.1); SODIUM LEVEL 143.0 MMOL/L (136-145)
[2025-05-05] MEDS: MIRALAX *UNIT DOSE* 17 GM PACKET PO PRN (09:02)
[2025-05-05] MEDS: FUROSEMIDE 20 MG TAB PO ONE (10:31)
[2025-05-05] MEDS ORDERED: VALSARTAN 80MG TAB PO SCH (21:00)
== END 2025-05-05 11:17 | DRG 291 ==
LOC: EDBD 11:23 → M ED 11:23 → M ED INP 16:57 → M MSPAV 05-03 20:49
PROVIDERS: ADMIT Family Medicine; ATTEND Internal Medicine
PROC: B246ZZZ Ultrasonography of Right and Left Heart (ICD-10-PCS; principal; 2025-05-03)
DX: I11.0 Hypertensive heart disease with heart failure (principal); I50.33 Acute on chronic diastolic (congestive) heart failure; J96.21 Acute and chronic respiratory failure with hypoxia; J44.1 Chronic obstructive pulmonary disease with (acute) exacerbation; E03.9 Hypothyroidism, unspecified; G40.909 Epilepsy, unspecified, not intractable, without status epilepticus; F32.A Depression, unspecified; F41.9 Anxiety disorder, unspecified; Z96.641 Presence of right artificial hip joint; Z87.891 Personal history of nicotine dependence; I27.81 Cor pulmonale (chronic); I27.20 Pulmonary hypertension, unspecified; Z79.51 Long term (current) use of inhaled steroids; Z79.890 Hormone replacement therapy; Z79.899 Other long term (current) drug therapy; Z88.0 Allergy status to penicillin; Z88.1 Allergy status to other antibiotic agents; Z88.2 Allergy status to sulfonamides; Z88.8 Allergy status to other drugs, medicaments and biological substances; Z91.018 Allergy to other foods

== ENCOUNTER → 2025-05-07 | Outpatient (REF) ==
[~2025-05-07] MED LIST changes: +ACET-897 PO; +ADVA1AER9 INH; +ALBU2.5V10 INH; +BETA5CR TOP; +BUSP5TA PO; +FERR32TA PO; +HYDR-643 PO; +HYDR25TA87 PO; +LASI20TA3 PO; +LEVOTAB10 PO; +MUPI2OI TOP; +PRED20TA PO; +VALS1TAB66 PO; +VITA200020 PO
[2025-05-07 09:45] LABS: PLATELET COUNT, AUTOMATED 388 10^3/uL (150-450)
[2025-05-07 09:58] LABS: ALT/SGPT 23.0 U/L (7.0-40); AST/SGOT 22.0 U/L (<34); CALCIUM LEVEL 9.3 MG/DL (8.3-10.6); CARBON DIOXIDE LEVEL 34.0 MMOL/L (20-31); CHLORIDE LEVEL 102.0 MMOL/L (98-107); CREATININE FOR GFR 0.67 MG/DL (0.55-1.30); GLOMERULAR FILTRATION RATE 83.5 (>32); POTASSIUM SERUM 4.4 MMOL/L (3.5-5.1); SODIUM LEVEL 145.0 MMOL/L (136-145)
== END ==
PROVIDERS: ATTEND Internal Medicine
DX: Z02.2 Encounter for examination for admission to residential institution (principal); Z79.899 Other long term (current) drug therapy

== ENCOUNTER → 2025-05-19 | Outpatient (REF) ==
[2025-05-19 18:21] LABS: PLATELET COUNT, AUTOMATED 294 10^3/uL (150-450)
== END ==
PROVIDERS: ATTEND Internal Medicine
DX: R09.02 Hypoxemia (principal)

== ENCOUNTER → 2025-05-19 | Outpatient (REF) | PROVIDERS: ATTEND Physician Assistant | DX: R06.02 Shortness of breath (principal) ==

== ENCOUNTER → 2025-05-19 | Outpatient (REF) | PROVIDERS: ATTEND Internal Medicine | DX: R06.02 Shortness of breath (principal); Z53.8 Procedure and treatment not carried out for other reasons ==

== ENCOUNTER → 2025-05-19 | Outpatient (REF) ==
[2025-05-19 10:32] LABS: CALCIUM LEVEL 8.6 MG/DL (8.3-10.6); CARBON DIOXIDE LEVEL 28.0 MMOL/L (20-31); CHLORIDE LEVEL 103.0 MMOL/L (98-107); CREATININE FOR GFR 0.65 MG/DL (0.55-1.30); GLOMERULAR FILTRATION RATE 84.1 (>32); POTASSIUM SERUM 4.4 MMOL/L (3.5-5.1); SODIUM LEVEL 143.0 MMOL/L (136-145)
== END ==
PROVIDERS: ATTEND Internal Medicine
DX: I50.9 Heart failure, unspecified (principal)

== ENCOUNTER → 2025-05-24 | Outpatient (REF) ==
[~2025-05-24] MED LIST changes: +BISA10SU27 PR; +FLEEENE12 PR; +FURO40TA2 PO; +MILKSUS3 PO; +SPIR-10 PO
[2025-05-24 11:41] LABS: PLATELET COUNT, AUTOMATED 352 10^3/uL (150-450)
[2025-05-24 12:11] LABS: CALCIUM LEVEL 9.1 MG/DL (8.3-10.6); CARBON DIOXIDE LEVEL 34.0 MMOL/L (20-31); CHLORIDE LEVEL 99.0 MMOL/L (98-107); CREATININE FOR GFR 0.85 MG/DL (0.55-1.30); GLOMERULAR FILTRATION RATE 65.5 (>32); POTASSIUM SERUM 4.6 MMOL/L (3.5-5.1); SODIUM LEVEL 140.0 MMOL/L (136-145)
== END ==
PROVIDERS: ATTEND Internal Medicine
DX: I50.9 Heart failure, unspecified (principal)

== ENCOUNTER 2025-05-25 18:21 | Inpatient (IN) | payer MEDICARE, MEDICAID ==
[~2025-05-25] VITALS: Ht 157.5 cm; Wt 53.1 kg
[~2025-05-25 18:21] MED LIST changes: -BISA10SU27 PR; -FLEEENE12 PR; -FURO40TA2 PO; -MILKSUS3 PO; -SPIR-10 PO
[2025-05-25] MEDS: IPRATROPIUM 0.5 MG/ALBUTEROL 2.5 MG INH SOL UD 3 ML NEB ONE ×2 (19:40)
[2025-05-25 19:42] LABS: VENOUS BASE EXCESS 6.7 (-2.0-2.0); VENOUS HCO3 32.0 MMOL/L (23.0-27.0); VENOUS O2 SATURATION 92.7 % (60.0-80.0); VENOUS PARTIAL PRESSURE CO2 48.4 mmHg (38.0-50.0); VENOUS PARTIAL PRESSURE O2 67.7 mmHg (30.0-50.0); VENOUS PH 7.438 UNITS (7.330-7.430); VENOUS STANDARD HCO3 30.4 MMOL/L; VENOUS TOTAL CO2 33.5 MMOL/L (24.0-28.0)
[2025-05-25 20:04] LABS: BASO # 0.1 10^3/uL (0.0-0.2); BASO % 0.4 % (0.0-1.0); EOS # 0.1 10^3/uL (0.0-0.5); EOS % 0.9 % (0.0-3.0); LYMPH # 0.3 10^3/uL (1.5-5.0); LYMPH % 2.3 % (24.0-44.0); MONO # 0.9 10^3/uL (0.0-0.8); MONO % 6.0 % (2.0-8.0); NEUTROPHILS # 12.7 10^3/uL (1.5-8.5); NEUTROPHILS % 89.8 % (36.0-66.0); PLATELET COUNT, AUTOMATED 337 10^3/uL (150-450)
[2025-05-25 20:14] LABS: CK-MB VALUE MASS 1.2 NG/ML (<3.6)
[2025-05-25 20:17] LABS: ALT/SGPT 17.0 U/L (7.0-40); AST/SGOT 20.0 U/L (<34); CALCIUM LEVEL 8.9 MG/DL (8.3-10.6); CARBON DIOXIDE LEVEL 32.0 MMOL/L (20-31); CHLORIDE LEVEL 97.0 MMOL/L (98-107); CPK CREATINE PHOSPHOKINASE 41.0 U/L (34-145); CREATININE FOR GFR 0.99 MG/DL (0.55-1.30); GLOMERULAR FILTRATION RATE 54.5 (>32); MAGNESIUM LEVEL 1.9 MG/DL (1.8-2.4); MB/CK RELATIVE INDEX 2.92 (< OR =4); POTASSIUM SERUM 4.1 MMOL/L (3.5-5.1); SODIUM LEVEL 141.0 MMOL/L (136-145); THYROXINE (T4) 6.2 UG/DL (4.5-10.9)
[2025-05-25 21:41] LABS: CK-MB VALUE MASS 1.0 NG/ML (<3.6)
[2025-05-25 21:43] LABS: CPK CREATINE PHOSPHOKINASE 30.0 U/L (34-145); MB/CK RELATIVE INDEX 3.33 (< OR =4)
[2025-05-25] MEDS: cefTRIAXone SOD 1 GM in DEXTROSE 5% (D5W) ADV/MINI-BAG 50 ML IV ONE (23:10)
[2025-05-25] MEDS ORDERED: MAALOX 30 ML SUSP *UDC PO PRN (23:15)
[2025-05-25] MEDS ORDERED: ACETAMINOPHEN 325 MG TAB PO PRN (23:15)
[2025-05-25] MEDS ORDERED: ALBUTEROL SULFATE 2.5 MG/0.5 ML INH CONCENTRATE NEB SOLN NEB PRN (23:15)
[2025-05-25] MEDS ORDERED: MOM 30 ML SUSPENSION UDC PO PRN (23:15)
[2025-05-26] VITALS (9 sets, daily range): BP systolic 99–130; BP diastolic 46–61; TEMP 97.2–97.5; O2SAT 71–94
[2025-05-26] MEDS: AZITHROMYCIN INJ 500 MG, VIAL MATE ADAPTER 1 EACH in NS 250 ML IV ONE (00:24)
[2025-05-26 00:39] LABS: MAGNESIUM LEVEL 1.9 MG/DL (1.8-2.4)
[2025-05-26] MEDS: IPRATROPIUM 0.5 MG/ALBUTEROL 2.5 MG INH SOL UD 3 ML NEB SCH (01:59)
[2025-05-26 06:59] LABS: ALT/SGPT 17.0 U/L (7.0-40); AST/SGOT 15.0 U/L (<34); CALCIUM LEVEL 8.9 MG/DL (8.3-10.6); CARBON DIOXIDE LEVEL 33.0 MMOL/L (20-31); CHLORIDE LEVEL 97.0 MMOL/L (98-107); CREATININE FOR GFR 0.85 MG/DL (0.55-1.30); GLOMERULAR FILTRATION RATE 65.5 (>32); MAGNESIUM LEVEL 2.3 MG/DL (1.8-2.4); POTASSIUM SERUM 4.0 MMOL/L (3.5-5.1); SODIUM LEVEL 142.0 MMOL/L (136-145)
[2025-05-26] MEDS: ADVAIR HFA 115/21 MCG INHALER INH SCH (07:48)
[2025-05-26] MEDS: DOXYCYCLINE HYCLATE 100 MG TABLET PO SCH (08:40)
[2025-05-26] MEDS: PANTOPRAZOLE 40MG TAB PO SCH (08:40)
[2025-05-26] MEDS: DOCUSATE SODIUM 100 MG CAPSULE PO SCH (08:40)
[2025-05-26 08:43] LABS: ABG BASE EXCESS 7.0 (-2.0-2.0); ABG HCO3 32.0 MMOL/L (22.0-26.0); ABG O2 SATURATION 93.0 % (95.0-99.0); ABG PARTIAL PRESSURE CO2 47.6 mmHg (35.0-45.0); ABG PARTIAL PRESSURE O2 62.2 mmHg (75.0-100.0); ABG STANDARD HCO3 30.7 MMOL/L. (22.0-26.0); ABG TOTAL CO2 33.5 MMOL/L (23.0-31.0); ABG pH (ARTERIAL) 7.446 UNITS (7.350-7.450)
[2025-05-26] MEDS ORDERED: SPIR-10 PO (09:35)
[2025-05-26] MEDS ORDERED: ACET1TAB55 PO (09:35)
[2025-05-26] MEDS ORDERED: FLEEENE12 PR (09:35)
[2025-05-26] MEDS ORDERED: FURO40TA2 PO (09:35)
[2025-05-26] MEDS ORDERED: MILKSUS3 PO (09:35)
[2025-05-26] MEDS ORDERED: BISA10SU27 PR (09:35)
[2025-05-26] MEDS ORDERED: HOME MED LIST COMPLETE! XX SCH (09:40)
[2025-05-26] MEDS: ENOXAPARIN 40 MG/0.4 ML SYRINGE (J1650 PER 10MG) SC SCH (13:13)
[2025-05-26] MEDS ORDERED: LEVALBUTEROL 1.25 MG 0.5ML CONCENTRATE NEB INH PRN (20:50)
[2025-05-26] MEDS: cefTRIAXone SOD 1 GM in DEXTROSE 5% (D5W) ADV/MINI-BAG 50 ML IV SCH (21:24)
[2025-05-26 21:34] LABS: VENOUS BASE EXCESS 4.3 (-2.0-2.0); VENOUS HCO3 30.3 MMOL/L (23.0-27.0); VENOUS O2 SATURATION 89.6 % (60.0-80.0); VENOUS PARTIAL PRESSURE CO2 51.5 mmHg (38.0-50.0); VENOUS PARTIAL PRESSURE O2 58.8 mmHg (30.0-50.0); VENOUS PH 7.388 UNITS (7.330-7.430); VENOUS STANDARD HCO3 28.2 MMOL/L; VENOUS TOTAL CO2 31.9 MMOL/L (24.0-28.0)
[2025-05-26 21:35] LABS: BASO # 0.0 10^3/uL (0.0-0.2); BASO % 0.1 % (0.0-1.0); EOS # 0.0 10^3/uL (0.0-0.5); EOS % 0.0 % (0.0-3.0); LYMPH # 0.5 10^3/uL (1.5-5.0); LYMPH % 2.8 % (24.0-44.0); MONO # 0.6 10^3/uL (0.0-0.8); MONO % 3.5 % (2.0-8.0); NEUTROPHILS # 15.0 10^3/uL (1.5-8.5); NEUTROPHILS % 92.9 % (36.0-66.0); PLATELET COUNT, AUTOMATED 352 10^3/uL (150-450)
[2025-05-26 21:55] LABS: D-DIMER QUANT 1.32 ug/mL (<0.5); INR 0.97
[2025-05-26 22:06] LABS: ALT/SGPT 15 U/L (7.0-40); AST/SGOT 14 U/L (<34); CALCIUM LEVEL 9.7 MG/DL (8.3-10.6); CARBON DIOXIDE LEVEL 32 MMOL/L (20-31); CHLORIDE LEVEL 97 MMOL/L (98-107); CREATININE FOR GFR 0.89 MG/DL (0.55-1.30); GLOMERULAR FILTRATION RATE 61.9 (>32); MAGNESIUM LEVEL 2.2 MG/DL (1.8-2.4); POTASSIUM SERUM 4.3 MMOL/L (3.5-5.1); SODIUM LEVEL 140 MMOL/L (136-145)
[2025-05-26] MEDS: NS 500 ML IV ONE (22:42)
[2025-05-27] VITALS (16 sets, daily range): BP systolic 126–148; BP diastolic 57–84; TEMP 97–97.5; O2SAT 79–97
[2025-05-27] MEDS ORDERED: ISOVUE-370 76% 100 ML VIAL As Ordered ONE (02:32)
[2025-05-27 06:04] LABS: VENOUS BASE EXCESS 2.4 (-2.0-2.0); VENOUS HCO3 27.8 MMOL/L (23.0-27.0); VENOUS O2 SATURATION 98.4 % (60.0-80.0); VENOUS PARTIAL PRESSURE CO2 46.3 mmHg (38.0-50.0); VENOUS PARTIAL PRESSURE O2 109.2 mmHg (30.0-50.0); VENOUS PH 7.396 UNITS (7.330-7.430); VENOUS STANDARD HCO3 26.6 MMOL/L; VENOUS TOTAL CO2 29.2 MMOL/L (24.0-28.0)
[2025-05-27] MEDS: FUROSEMIDE injection 100 MG, VIAL 2 BAG 13MM ADAPTER 1 EACH in NS 100 ML IV SCH (12:25)
[2025-05-27] MEDS: MIDODRINE 5 MG TAB PO SCH (12:26)
[2025-05-27 15:37] LABS: RHEUMATOID FACTOR QUANT 6.8 IU/ML (<14)
[2025-05-27 15:40] LABS: LDH LACTATE DEHYDROGENASE 276.0 U/L (120-246)
[2025-05-28] VITALS (15 sets, daily range): BP systolic 129–168; BP diastolic 59–84; TEMP 97.3–98.2; O2SAT 78–97
[2025-05-28 07:16] LABS: PLATELET COUNT, AUTOMATED 389 10^3/uL (150-450)
[2025-05-28 07:25] LABS: BASO # 0.0 10^3/uL (0.0-0.2); BASO % 0.1 % (0.0-1.0); EOS # 0.0 10^3/uL (0.0-0.5); EOS % 0.0 % (0.0-3.0); LYMPH # 0.5 10^3/uL (1.5-5.0); LYMPH % 3.4 % (24.0-44.0); MONO # 0.6 10^3/uL (0.0-0.8); MONO % 4.4 % (2.0-8.0); NEUTROPHILS # 12.9 10^3/uL (1.5-8.5); NEUTROPHILS % 91.3 % (36.0-66.0)
[2025-05-28 07:37] LABS: CALCIUM LEVEL 9.0 MG/DL (8.3-10.6); CARBON DIOXIDE LEVEL 33.0 MMOL/L (20-31); CHLORIDE LEVEL 101.0 MMOL/L (98-107); CK-MB VALUE MASS 2.6 NG/ML (<3.6); CPK CREATINE PHOSPHOKINASE 46.0 U/L (34-145); CREATININE FOR GFR 0.7 MG/DL (0.55-1.30); GLOMERULAR FILTRATION RATE 82.6 (>32); MAGNESIUM LEVEL 2.0 MG/DL (1.8-2.4); MB/CK RELATIVE INDEX 5.65 (< OR =4); PHOSPHORUS LEVEL 3.1 MG/DL (2.4-5.1); POTASSIUM SERUM 4.4 MMOL/L (3.5-5.1); SODIUM LEVEL 143.0 MMOL/L (136-145)
[2025-05-28] MEDS: POTASSIUM CHLORIDE 10MEQ SR TABLET PO ONE (08:41)
[2025-05-28] MEDS: MAG SULF 1GM/100ML (MAG RUN) 1 GM in IV 1 EA IV ONE (08:41)
[2025-05-28] MEDS: CALCIUM GLUCONATE 1,000 MG in DEXTROSE 5% (D5W) MINI-BAG PLU 100 ML IV ONE (10:23)
[2025-05-28] MEDS ORDERED: BISACODYL 10 MG SUPP PR PRN (13:55)
[2025-05-28] MEDS: ALBUTEROL SULFATE 2.5 MG/0.5 ML INH CONCENTRATE NEB SOLN INH SCH (15:17)
[2025-05-28] MEDS: LEVOTHYROXINE 25 MCG TABLET (0.025MG) PO SCH (15:20)
[2025-05-28] MEDS: SPIRONOLACTONE 12.5MG PER 1/2 TABLET PO SCH (15:22)
[2025-05-28] MEDS: FERROUS GLUCONATE 324 MG TAB PO SCH (15:23)
[2025-05-28] MEDS: **hydrALAZINE HCL** 25 MG TAB PO SCH (15:27)
[2025-05-28] MEDS: FAMOTIDINE 20 MG TAB PO SCH (15:27)
[2025-05-28] MEDS: busPIRone 5 MG TAB PO SCH (20:37)
[2025-05-28] MEDS: SERTRALINE HCL 25 MG TABLET PO SCH (20:37)
[2025-05-28] MEDS: VALSARTAN 80MG TAB PO SCH (20:47)
[2025-05-28] MEDS: BETAMETHASONE DIP 0.05% OINT 15 GM TOP SCH (21:00)
[2025-05-28] MEDS: MUPIROCIN 2% OINT 22 GM TUBE TOP SCH (21:00)
[2025-05-29] VITALS (24 sets, daily range): BP systolic 137–142; BP diastolic 66–71; TEMP 97.5–97.9; O2SAT 82–99
[2025-05-29 19:37] LABS: CALCIUM LEVEL 8.7 MG/DL (8.3-10.6); CARBON DIOXIDE LEVEL 36.0 MMOL/L (20-31); CHLORIDE LEVEL 101.0 MMOL/L (98-107); CREATININE FOR GFR 0.86 MG/DL (0.55-1.30); GLOMERULAR FILTRATION RATE 64.5 (>32); MAGNESIUM LEVEL 2.0 MG/DL (1.8-2.4); PHOSPHORUS LEVEL 3.1 MG/DL (2.4-5.1); POTASSIUM SERUM 4.2 MMOL/L (3.5-5.1); SODIUM LEVEL 141.0 MMOL/L (136-145)
[2025-05-30] VITALS (13 sets, daily range): BP systolic 117–164; BP diastolic 59–90; TEMP 97.7–98.2; O2SAT 81–99
[2025-05-30] MEDS: MIDODRINE 5 MG TAB PO SCH (08:00)
[2025-05-30] MEDS: FUROSEMIDE 40 MG/4 ML VIAL IV ONE (08:41)
[2025-05-30 08:57] LABS: CALCIUM LEVEL 8.6 MG/DL (8.3-10.6); CARBON DIOXIDE LEVEL 36.0 MMOL/L (20-31); CHLORIDE LEVEL 98.0 MMOL/L (98-107); CREATININE FOR GFR 0.74 MG/DL (0.55-1.30); GLOMERULAR FILTRATION RATE 77.3 (>32); MAGNESIUM LEVEL 2.0 MG/DL (1.8-2.4); POTASSIUM SERUM 4.0 MMOL/L (3.5-5.1); SODIUM LEVEL 142.0 MMOL/L (136-145)
[2025-05-30] MEDS ORDERED: TRIMETHOPRIM/SULFAMETH 80/400 MG TAB PO SCH (09:00)
[2025-05-31] VITALS (8 sets, daily range): BP systolic 104–128; BP diastolic 47–64; TEMP 97.5–98.5; O2SAT 89–95
[2025-05-31 06:33] LABS: PLATELET COUNT, AUTOMATED 362 10^3/uL (150-450)
[2025-05-31] MEDS: predniSONE 20 MG TAB PO SCH (11:54)
[2025-05-31 15:51] LABS: RNP ANTIBODY <1.0 NEG AI (<1.0 NEG)
[2025-06-01] VITALS (18 sets, daily range): BP systolic 108–139; BP diastolic 47–62; TEMP 97.5–98.8; O2SAT 82–95
[2025-06-01] MEDS: FUROSEMIDE 40 MG/4 ML VIAL IV SCH (18:34)
[2025-06-01] MEDS: CEFDINIR 300 MG CAP PO SCH (20:20)
[2025-06-02] VITALS (9 sets, daily range): BP systolic 115–144; BP diastolic 47–72; TEMP 97.3–98.1; O2SAT 89–99
[2025-06-02 09:01] LABS: BASO # 0.0 10^3/uL (0.0-0.2); BASO % 0.3 % (0.0-1.0); EOS # 0.3 10^3/uL (0.0-0.5); EOS % 2.2 % (0.0-3.0); LYMPH # 1.2 10^3/uL (1.5-5.0); LYMPH % 10.2 % (24.0-44.0); MONO # 0.9 10^3/uL (0.0-0.8); MONO % 7.6 % (2.0-8.0); NEUTROPHILS # 9.2 10^3/uL (1.5-8.5); NEUTROPHILS % 77.3 % (36.0-66.0); PLATELET COUNT, AUTOMATED 342 10^3/uL (150-450)
[2025-06-02 09:22] LABS: CALCIUM LEVEL 8.7 MG/DL (8.3-10.6); CARBON DIOXIDE LEVEL 36.0 MMOL/L (20-31); CHLORIDE LEVEL 99.0 MMOL/L (98-107); CREATININE FOR GFR 0.65 MG/DL (0.55-1.30); GLOMERULAR FILTRATION RATE 84.1 (>32); MAGNESIUM LEVEL 2.2 MG/DL (1.8-2.4); POTASSIUM SERUM 3.6 MMOL/L (3.5-5.1); SODIUM LEVEL 141.0 MMOL/L (136-145)
[2025-06-02 09:35] LABS: ALT/SGPT 13.0 U/L (7.0-40); AST/SGOT 12.0 U/L (<34); CALCIUM LEVEL 8.7 MG/DL (8.3-10.6); CARBON DIOXIDE LEVEL 37.0 MMOL/L (20-31); CHLORIDE LEVEL 98.0 MMOL/L (98-107); CREATININE FOR GFR 0.69 MG/DL (0.55-1.30); GLOMERULAR FILTRATION RATE 82.9 (>32); MAGNESIUM LEVEL 2.2 MG/DL (1.8-2.4); PHOSPHORUS LEVEL 2.4 MG/DL (2.4-5.1); POTASSIUM SERUM 3.5 MMOL/L (3.5-5.1); SODIUM LEVEL 137.0 MMOL/L (136-145)
[2025-06-03] VITALS (13 sets, daily range): BP systolic 113–126; BP diastolic 51–66; TEMP 97.5–97.9; O2SAT 86–97
[2025-06-03 10:06] LABS: PLATELET COUNT, AUTOMATED 321 10^3/uL (150-450)
[2025-06-03 10:27] LABS: CALCIUM LEVEL 8.8 MG/DL (8.3-10.6); CARBON DIOXIDE LEVEL 36.0 MMOL/L (20-31); CHLORIDE LEVEL 98.0 MMOL/L (98-107); CREATININE FOR GFR 0.72 MG/DL (0.55-1.30); GLOMERULAR FILTRATION RATE 79.9 (>32); MAGNESIUM LEVEL 2.1 MG/DL (1.8-2.4); POTASSIUM SERUM 3.2 MMOL/L (3.5-5.1); SODIUM LEVEL 140.0 MMOL/L (136-145)
[2025-06-03] MEDS: POTASSIUM CHLORIDE 10MEQ SR TABLET PO ONE (12:05)
[2025-06-04 03:52] VITALS: BP 150/69; TEMP 97.2; O2SAT 92
[2025-06-04 08:00] VITALS: BP 130/68; TEMP 97.9; O2SAT 91
[2025-06-04] MEDS ORDERED: PRED10TA2 PO (08:08)
[2025-06-04] MEDS ORDERED: LASI40TA9 PO (08:08)
[2025-06-04 08:29] VITALS: BP 130/64
[2025-06-04] MEDS: POTASSIUM CHLORIDE 10MEQ SR TABLET PO SCH (08:30)
== END 2025-06-04 10:58 | DRG 196 ==
LOC: EDBD 18:21 → M ED 18:21 → M ED INP 23:11 → M MSPAV 05-26 05:22
PROVIDERS: ADMIT Student in an Organized Health Care Education/Training Program; ATTEND General Practice
DX: J84.9 Interstitial pulmonary disease, unspecified (principal); J96.21 Acute and chronic respiratory failure with hypoxia; I50.33 Acute on chronic diastolic (congestive) heart failure; B59 Pneumocystosis; J44.1 Chronic obstructive pulmonary disease with (acute) exacerbation; E87.3 Alkalosis; I11.0 Hypertensive heart disease with heart failure; E03.9 Hypothyroidism, unspecified; R41.81 Age-related cognitive decline; I27.20 Pulmonary hypertension, unspecified; G43.909 Migraine, unspecified, not intractable, without status migrainosus; F41.9 Anxiety disorder, unspecified; F32.A Depression, unspecified; G62.9 Polyneuropathy, unspecified; K21.9 Gastro-esophageal reflux disease without esophagitis; Z96.641 Presence of right artificial hip joint; Z79.890 Hormone replacement therapy; Z79.52 Long term (current) use of systemic steroids; Z79.899 Other long term (current) drug therapy; Z88.0 Allergy status to penicillin; Z88.2 Allergy status to sulfonamides; Z88.8 Allergy status to other drugs, medicaments and biological substances; Z91.018 Allergy to other foods

== ENCOUNTER → 2025-05-25 | Outpatient (REF) | LOC: M RAD 11:29 | PROVIDERS: ATTEND Physician Assistant | DX: R09.02 Hypoxemia (principal) ==

== ENCOUNTER → 2025-05-26 | Outpatient (REF) ==
[~2025-05-26] MED LIST changes: +BISA10SU27 PR; +FLEEENE12 PR; +FURO40TA2 PO; +MILKSUS3 PO; +SPIR-10 PO
== END ==
PROVIDERS: ATTEND Internal Medicine
DX: I50.9 Heart failure, unspecified (principal); Z53.8 Procedure and treatment not carried out for other reasons

== ENCOUNTER → 2025-06-07 | Outpatient (REF) ==
[~2025-06-07] MED LIST changes: +LASI40TA9 PO; +PRED10TA2 PO
== END ==
PROVIDERS: ATTEND Internal Medicine
DX: I50.9 Heart failure, unspecified (principal); Z53.8 Procedure and treatment not carried out for other reasons

== ENCOUNTER → 2025-06-09 | Outpatient (REF) ==
[2025-06-09 13:28] LABS: PLATELET COUNT, AUTOMATED 304 10^3/uL (150-450)
[2025-06-09 13:56] LABS: CALCIUM LEVEL 8.4 MG/DL (8.3-10.6); CARBON DIOXIDE LEVEL 32.0 MMOL/L (20-31); CHLORIDE LEVEL 98.0 MMOL/L (98-107); CREATININE FOR GFR 0.75 MG/DL (0.55-1.30); GLOMERULAR FILTRATION RATE 76.1 (>32); MAGNESIUM LEVEL 2.3 MG/DL (1.8-2.4); POTASSIUM SERUM 4.8 MMOL/L (3.5-5.1); SODIUM LEVEL 135.0 MMOL/L (136-145)
== END ==
PROVIDERS: ATTEND Physician Assistant
DX: G40.909 Epilepsy, unspecified, not intractable, without status epilepticus (principal); Z79.899 Other long term (current) drug therapy; I50.9 Heart failure, unspecified

== ENCOUNTER 2025-06-15 22:56 | Inpatient (IN) | payer MEDICARE, MEDICAID ==
[~2025-06-15] VITALS: Ht 154.9 cm; Wt 52.6 kg
[2025-06-15] MEDS ORDERED: IPRATROPIUM 0.5 MG/ALBUTEROL 2.5 MG INH SOL UD 3 ML NEB SCH (23:00)
[2025-06-15 23:23] LABS: ABG BASE EXCESS 3.3 (-2.0-2.0); ABG HCO3 27.0 MMOL/L (22.0-26.0); ABG O2 SATURATION 93.5 % (95.0-99.0); ABG PARTIAL PRESSURE CO2 37.8 mmHg (35.0-45.0); ABG PARTIAL PRESSURE O2 65.4 mmHg (75.0-100.0); ABG STANDARD HCO3 27.3 MMOL/L. (22.0-26.0); ABG TOTAL CO2 28.1 MMOL/L (23.0-31.0); ABG pH (ARTERIAL) 7.471 UNITS (7.350-7.450)
[2025-06-15 23:24] LABS: BASO # 0.0 10^3/uL (0.0-0.2); BASO % 0.2 % (0.0-1.0); EOS # 0.2 10^3/uL (0.0-0.5); EOS % 1.2 % (0.0-3.0); LYMPH # 0.7 10^3/uL (1.5-5.0); LYMPH % 3.8 % (24.0-44.0); MONO # 1.3 10^3/uL (0.0-0.8); MONO % 7.0 % (2.0-8.0); NEUTROPHILS # 16.8 10^3/uL (1.5-8.5); NEUTROPHILS % 87.2 % (36.0-66.0); PLATELET COUNT, AUTOMATED 198 10^3/uL (150-450)
[2025-06-15] MEDS: IPRATROPIUM 0.5 MG/ALBUTEROL 2.5 MG INH SOL UD 3 ML NEB PRN (23:42)
[2025-06-15 23:54] LABS: CK-MB VALUE MASS 1.4 NG/ML (<3.6)
[2025-06-15 23:56] LABS: ALT/SGPT 12.0 U/L (7.0-40); AST/SGOT 15.0 U/L (<34); CALCIUM LEVEL 8.9 MG/DL (8.3-10.6); CARBON DIOXIDE LEVEL 30.0 MMOL/L (20-31); CHLORIDE LEVEL 101.0 MMOL/L (98-107); CREATININE FOR GFR 0.81 MG/DL (0.55-1.30); GLOMERULAR FILTRATION RATE 69.3 (>32); POTASSIUM SERUM 3.9 MMOL/L (3.5-5.1); SODIUM LEVEL 136.0 MMOL/L (136-145)
[2025-06-15 23:58] LABS: THYROXINE (T4) 5.8 UG/DL (4.5-10.9)
[2025-06-16] VITALS (27 sets, daily range): BP systolic 100–135; BP diastolic 55–63; TEMP 97–98.2; O2SAT 84–99
[2025-06-16 00:10] LABS: CPK CREATINE PHOSPHOKINASE 43.0 U/L (34-145); MB/CK RELATIVE INDEX 3.25 (< OR =4)
[2025-06-16] MEDS ORDERED: ISOVUE-370 76% 100 ML VIAL As Ordered ONE (00:47)
[2025-06-16] MEDS: MAG SULF 1GM/100ML (MAG RUN) 1 GM in IV 1 EA IV ONE (01:10)
[2025-06-16 01:19] LABS: MAGNESIUM LEVEL 2.1 MG/DL (1.8-2.4)
[2025-06-16] MEDS ORDERED: cefTRIAXone SOD 1 GM in DEXTROSE 5% (D5W) ADV/MINI-BAG 50 ML IV ONE (01:30)
[2025-06-16] MEDS ORDERED: HEPARIN SOD 5000 UNITS/ML 1 ML VIAL/SYRINGE IV PRN (01:30)
[2025-06-16] MEDS ORDERED: AZITHROMYCIN INJ 500 MG, VIAL MATE ADAPTER 1 EACH in NS 250 ML IV ONE (01:30)
[2025-06-16 02:01] LABS: PLATELET COUNT, AUTOMATED 189 10^3/uL (150-450)
[2025-06-16] MEDS: HEPARIN DRIP 25,000 UNITS in IV 1 EA IV SCH (02:13)
[2025-06-16] MEDS: PIPERACILLIN/TAZOBACTAM SOD 4.5 GM in DEXTROSE 5% (D5W) ADV/MINI-BAG 50 ML IV SCH (02:59)
[2025-06-16] MEDS: IPRATROPIUM 0.5 MG/ALBUTEROL 2.5 MG INH SOL UD 3 ML NEB SCH (03:26)
[2025-06-16] MEDS: LR 1,000 ML IV SCH (04:25)
[2025-06-16 09:08] LABS: ALT/SGPT 11.0 U/L (7.0-40); AST/SGOT 10.0 U/L (<34); CALCIUM LEVEL 8.2 MG/DL (8.3-10.6); CARBON DIOXIDE LEVEL 30.0 MMOL/L (20-31); CHLORIDE LEVEL 102.0 MMOL/L (98-107); CREATININE FOR GFR 0.69 MG/DL (0.55-1.30); GLOMERULAR FILTRATION RATE 82.9 (>32); POTASSIUM SERUM 4.7 MMOL/L (3.5-5.1); SODIUM LEVEL 138.0 MMOL/L (136-145)
[2025-06-16] MEDS: DOXYCYCLINE HYCLATE 100 MG TABLET PO SCH (09:17)
[2025-06-16] MEDS: cefTRIAXone SOD 1 GM in DEXTROSE 5% (D5W) ADV/MINI-BAG 50 ML IV SCH (09:18)
[2025-06-16 09:22] LABS: INR 1.02
[2025-06-16] MEDS: ADVAIR HFA 230/21 MCG INHALER INH SCH (09:58)
[2025-06-16] MEDS: ENOXAPARIN 60 MG/0.6 ML SYRINGE (J1650 PER 10MG) SC SCH (11:56)
[2025-06-16] MEDS ORDERED: PRED10TA2 PO (12:01)
[2025-06-16] MEDS ORDERED: FURO40TA2 PO (12:01)
[2025-06-16] MEDS ORDERED: HOME MED LIST COMPLETE! XX SCH (12:05)
[2025-06-16] MEDS: FAMOTIDINE 20 MG TAB PO SCH (13:05)
[2025-06-16] MEDS: LEVOTHYROXINE 25 MCG TABLET (0.025MG) PO SCH (15:05)
[2025-06-17] VITALS (38 sets, daily range): BP systolic 110–138; BP diastolic 56–82; TEMP 96.9–97.8; O2SAT 85–99
[2025-06-17 05:51] LABS: PLATELET COUNT, AUTOMATED 171 10^3/uL (150-450)
[2025-06-17 06:16] LABS: CALCIUM LEVEL 8.2 MG/DL (8.3-10.6); CARBON DIOXIDE LEVEL 28.0 MMOL/L (20-31); CHLORIDE LEVEL 105.0 MMOL/L (98-107); CREATININE FOR GFR 0.68 MG/DL (0.55-1.30); GLOMERULAR FILTRATION RATE 83.2 (>32); MAGNESIUM LEVEL 2.2 MG/DL (1.8-2.4); POTASSIUM SERUM 4.0 MMOL/L (3.5-5.1); SODIUM LEVEL 138.0 MMOL/L (136-145)
[2025-06-17] MEDS: busPIRone 5 MG TAB PO SCH (08:52)
[2025-06-17] MEDS: AZITHROMYCIN 250 MG TABLET PO SCH (08:52)
[2025-06-17] MEDS: FERROUS GLUCONATE 324 MG TAB PO SCH (08:52)
[2025-06-17] MEDS: SPIRONOLACTONE 25 MG TAB PO SCH (08:53)
[2025-06-17] MEDS: FUROSEMIDE 40 MG TAB PO SCH (08:53)
[2025-06-17 11:06] LABS: DRVV SCREEN 35.8 SECONDS
[2025-06-17 11:07] LABS: PTT LUPUS TYPE ANTICOAG SCREEN 0.94 (0-1.20)
[2025-06-17] MEDS: **hydrALAZINE HCL** 25 MG TAB PO SCH (12:33)
[2025-06-17] MEDS: CEFDINIR 300 MG CAP PO SCH (12:33)
[2025-06-17 23:27] LABS: CARDIOLIPIN IGA ANTIBODY < 2.0 APL-U/mL (<20.0); CARDIOLIPIN IGG ANTIBODY < 2.0 GPL-U/mL (<20.0); CARDIOLIPIN IGM ANTIBODY 4.8 MPL-U/mL (<20.0)
[2025-06-18] VITALS (31 sets, daily range): BP systolic 123–149; BP diastolic 56–65; TEMP 97.1–97.5; O2SAT 85–100
[2025-06-18 05:39] LABS: PLATELET COUNT, AUTOMATED 179 10^3/uL (150-450)
[2025-06-18 06:08] LABS: CALCIUM LEVEL 8.2 MG/DL (8.3-10.6); CARBON DIOXIDE LEVEL 30.0 MMOL/L (20-31); CHLORIDE LEVEL 107.0 MMOL/L (98-107); CREATININE FOR GFR 0.63 MG/DL (0.55-1.30); GLOMERULAR FILTRATION RATE 84.7 (>32); MAGNESIUM LEVEL 2.0 MG/DL (1.8-2.4); POTASSIUM SERUM 4.2 MMOL/L (3.5-5.1); SODIUM LEVEL 142.0 MMOL/L (136-145)
[2025-06-18] MEDS: GLYCOPYRROLATE INJ 0.2 MG/ML 2 ML VIAL NEB SCH (08:00)
[2025-06-18] MEDS: IPRATROPIUM 0.5 MG/ALBUTEROL 2.5 MG INH SOL UD 3 ML NEB SCH (16:52)
[2025-06-18] MEDS: APIXABAN 5 MG TAB PO SCH (20:29)
[2025-06-19] VITALS (62 sets, daily range): BP systolic 113–152; BP diastolic 53–70; TEMP 97.2–98.9; O2SAT 80–100
[2025-06-19 05:19] LABS: PLATELET COUNT, AUTOMATED 193 10^3/uL (150-450)
[2025-06-19 05:51] LABS: CALCIUM LEVEL 8.4 MG/DL (8.3-10.6); CARBON DIOXIDE LEVEL 32.0 MMOL/L (20-31); CHLORIDE LEVEL 103.0 MMOL/L (98-107); CREATININE FOR GFR 0.56 MG/DL (0.55-1.30); GLOMERULAR FILTRATION RATE 87.2 (>32); MAGNESIUM LEVEL 2.1 MG/DL (1.8-2.4); POTASSIUM SERUM 4.2 MMOL/L (3.5-5.1); SODIUM LEVEL 139.0 MMOL/L (136-145)
[2025-06-19 12:18] LABS: PROTEIN S ANTIGEN FREE 50 % normal (50-147); PROTEIN S ANTIGEN TOTAL 72 % normal (70-140)
[2025-06-19] MEDS: ACETAMINOPHEN 325 MG TAB PO PRN (20:39)
[2025-06-19] MEDS: VALSARTAN 80MG TAB PO SCH (20:40)
[2025-06-20] VITALS (40 sets, daily range): BP systolic 100–138; BP diastolic 55–87; TEMP 97.3–98.1; O2SAT 85–100
[2025-06-20 05:39] LABS: PLATELET COUNT, AUTOMATED 216 10^3/uL (150-450)
[2025-06-20 06:12] LABS: CALCIUM LEVEL 8.5 MG/DL (8.3-10.6); CARBON DIOXIDE LEVEL 36.0 MMOL/L (20-31); CHLORIDE LEVEL 102.0 MMOL/L (98-107); CREATININE FOR GFR 0.63 MG/DL (0.55-1.30); GLOMERULAR FILTRATION RATE 84.7 (>32); MAGNESIUM LEVEL 2.1 MG/DL (1.8-2.4); POTASSIUM SERUM 3.9 MMOL/L (3.5-5.1); SODIUM LEVEL 143.0 MMOL/L (136-145)
[2025-06-20] MEDS: predniSONE 20 MG TAB PO SCH (09:24)
[2025-06-20] MEDS ORDERED: CEFD300CAP PO (13:40)
[2025-06-20] MEDS ORDERED: RISATAB3 PO (13:40)
[2025-06-20] MEDS ORDERED: ELIQ5TAB PO (13:40)
[2025-06-21] VITALS (27 sets, daily range): BP systolic 102–141; BP diastolic 51–66; TEMP 97.1–98.3; O2SAT 87–99
[2025-06-21 06:37] LABS: PLATELET COUNT, AUTOMATED 226 10^3/uL (150-450)
[2025-06-21 07:16] LABS: CALCIUM LEVEL 8.3 MG/DL (8.3-10.6); CARBON DIOXIDE LEVEL 35.0 MMOL/L (20-31); CHLORIDE LEVEL 100.0 MMOL/L (98-107); CREATININE FOR GFR 0.6 MG/DL (0.55-1.30); GLOMERULAR FILTRATION RATE 85.8 (>32); MAGNESIUM LEVEL 2.2 MG/DL (1.8-2.4); POTASSIUM SERUM 3.9 MMOL/L (3.5-5.1); SODIUM LEVEL 141.0 MMOL/L (136-145)
[2025-06-21 16:07] LABS: FACTOR V LEIDEN FOR MEDINET NEGATIVE
[2025-06-22] VITALS (35 sets, daily range): BP systolic 97–145; BP diastolic 53–70; TEMP 97–97.9; O2SAT 83–98
[2025-06-22 06:05] LABS: PLATELET COUNT, AUTOMATED 245 10^3/uL (150-450)
[2025-06-22 06:34] LABS: CALCIUM LEVEL 8.3 MG/DL (8.3-10.6); CARBON DIOXIDE LEVEL 34.0 MMOL/L (20-31); CHLORIDE LEVEL 101.0 MMOL/L (98-107); CREATININE FOR GFR 0.57 MG/DL (0.55-1.30); GLOMERULAR FILTRATION RATE 86.8 (>32); MAGNESIUM LEVEL 2.3 MG/DL (1.8-2.4); POTASSIUM SERUM 4.5 MMOL/L (3.5-5.1); SODIUM LEVEL 141.0 MMOL/L (136-145)
[2025-06-22 15:51] LABS: FACTOR II PROTHROMBIN GENE AN NEGATIVE
[2025-06-22 16:23] LABS: PROTEIN C ANTIGEN 85 % normal (70-140)
[2025-06-23] VITALS (34 sets, daily range): BP systolic 117–151; BP diastolic 58–67; TEMP 96.3–97.5; O2SAT 84–100
[2025-06-23 00:12] LABS: ANTI THROMBIN 3 ANTIGEN IMMUNO 91 % normal (80-120); ANTI THROMBIN 3 FUNCT ACTIVITY 104 % normal (80-135)
[2025-06-23] MEDS: METOPROLOL SUCC. 25 MG *XL* TAB PO SCH (09:07)
[2025-06-24] VITALS (34 sets, daily range): BP systolic 100–170; BP diastolic 55–74; TEMP 97–98.3; O2SAT 84–100
[2025-06-24 07:05] LABS: PLATELET COUNT, AUTOMATED 274 10^3/uL (150-450)
[2025-06-24 07:39] LABS: CALCIUM LEVEL 8.5 MG/DL (8.3-10.6); CARBON DIOXIDE LEVEL 30.0 MMOL/L (20-31); CHLORIDE LEVEL 102.0 MMOL/L (98-107); CREATININE FOR GFR 0.56 MG/DL (0.55-1.30); GLOMERULAR FILTRATION RATE 87.2 (>32); POTASSIUM SERUM 4.7 MMOL/L (3.5-5.1); SODIUM LEVEL 140.0 MMOL/L (136-145)
[2025-06-25] VITALS (34 sets, daily range): BP systolic 107–170; BP diastolic 57–67; TEMP 95.6–99.5; O2SAT 87–100
[2025-06-25] MEDS: APIXABAN 5 MG TAB PO SCH (21:11)
[2025-06-26] VITALS (36 sets, daily range): BP systolic 103–159; BP diastolic 53–80; TEMP 96.8–97.6; O2SAT 82–100
[2025-06-26] MEDS: predniSONE 20 MG TAB PO SCH (08:15)
[2025-06-27] VITALS (30 sets, daily range): BP systolic 100–156; BP diastolic 51–67; TEMP 97.1–98; O2SAT 89–100
[2025-06-27] MEDS: SODIUM CHLORIDE NASAL 0.65% SPRAY BTL (OCEAN) SCH (10:13)
[2025-06-28] VITALS (60 sets, daily range): BP systolic 96–147; BP diastolic 51–85; TEMP 96.8–97.4; O2SAT 78–100
[2025-06-28 05:46] LABS: PLATELET COUNT, AUTOMATED 262 10^3/uL (150-450)
[2025-06-28 06:19] LABS: CALCIUM LEVEL 8.5 MG/DL (8.3-10.6); CARBON DIOXIDE LEVEL 34.0 MMOL/L (20-31); CHLORIDE LEVEL 103.0 MMOL/L (98-107); CREATININE FOR GFR 0.61 MG/DL (0.55-1.30); GLOMERULAR FILTRATION RATE 85.4 (>32); POTASSIUM SERUM 4.3 MMOL/L (3.5-5.1); SODIUM LEVEL 140.0 MMOL/L (136-145)
[2025-06-28] MEDS: predniSONE 20 MG TAB PO SCH (08:32)
[2025-06-28 22:07] LABS: BASO # 0.0 10^3/uL (0.0-0.2); BASO % 0.1 % (0.0-1.0); EOS # 0.1 10^3/uL (0.0-0.5); EOS % 0.4 % (0.0-3.0); LYMPH # 0.7 10^3/uL (1.5-5.0); LYMPH % 5.1 % (24.0-44.0); MONO # 0.7 10^3/uL (0.0-0.8); MONO % 5.1 % (2.0-8.0); NEUTROPHILS # 12.5 10^3/uL (1.5-8.5); NEUTROPHILS % 88.0 % (36.0-66.0); PLATELET COUNT, AUTOMATED 306 10^3/uL (150-450)
[2025-06-28 22:32] LABS: ALT/SGPT 19.0 U/L (7.0-40); AST/SGOT 10.0 U/L (<34); CALCIUM LEVEL 8.4 MG/DL (8.3-10.6); CARBON DIOXIDE LEVEL 33.0 MMOL/L (20-31); CHLORIDE LEVEL 103.0 MMOL/L (98-107); CREATININE FOR GFR 0.59 MG/DL (0.55-1.30); GLOMERULAR FILTRATION RATE 86.1 (>32); POTASSIUM SERUM 4.1 MMOL/L (3.5-5.1); SODIUM LEVEL 143.0 MMOL/L (136-145)
[2025-06-29] VITALS (41 sets, daily range): BP systolic 96–147; BP diastolic 50–72; TEMP 97.2–97.4; O2SAT 79–99
[2025-06-29 04:07] LABS: BASO # 0.0 10^3/uL (0.0-0.2); BASO % 0.2 % (0.0-1.0); EOS # 0.2 10^3/uL (0.0-0.5); EOS % 1.1 % (0.0-3.0); LYMPH # 1.2 10^3/uL (1.5-5.0); LYMPH % 8.0 % (24.0-44.0); MONO # 0.9 10^3/uL (0.0-0.8); MONO % 6.2 % (2.0-8.0); NEUTROPHILS # 12.3 10^3/uL (1.5-8.5); NEUTROPHILS % 82.7 % (36.0-66.0); PLATELET COUNT, AUTOMATED 274 10^3/uL (150-450)
[2025-06-29 04:25] LABS: INR 1.13
[2025-06-29] MEDS: LIDOCAINE 2% 5 ML JELLY UROJET TOP ONE (06:30)
[2025-06-29 06:37] LABS: APPEARANCE, URINE CLEAR (CLEAR); BACTERIA, URINE AUTO NEGATIVE (NEGATIVE); BILIRUBIN, URINE AUTO NEGATIVE (NEGATIVE); BLOOD, URINE BLOOD NEGATIVE (NEGATIVE); GLUCOSE, URINE (UA) AUTO NEGATIVE (NEGATIVE); KETONE, URINE AUTO NEGATIVE (NEGATIVE); LEUKOCYTE ESTERASE, URINE AUTO NEGATIVE (NEGATIVE); NITRITE, URINE AUTO NEGATIVE (NEGATIVE); PROTEIN, URINE AUTO NEGATIVE (NEGATIVE); RBC, URINE AUTO 1 /HPF (0-3); SPECIFIC GRAVITY URINE AUTO 1.013 (1.002-1.035); SQUAMOUS EPITHELIAL CELL UR AU 0 /HPF (0-6); UROBILINOGEN, URINE AUTO 0.2 mg/dL (0.0-2.0); WBC, URINE AUTO 1 /HPF (0-3)
[2025-06-30] VITALS (30 sets, daily range): BP systolic 108–115; BP diastolic 55–82; TEMP 97.2–97.5; O2SAT 88–99
[2025-06-30 04:05] LABS: PLATELET COUNT, AUTOMATED 262 10^3/uL (150-450)
[2025-06-30 04:38] LABS: ALT/SGPT 15.0 U/L (7.0-40); AST/SGOT 10.0 U/L (<34); CALCIUM LEVEL 8.2 MG/DL (8.3-10.6); CARBON DIOXIDE LEVEL 32.0 MMOL/L (20-31); CHLORIDE LEVEL 102.0 MMOL/L (98-107); CREATININE FOR GFR 0.68 MG/DL (0.55-1.30); GLOMERULAR FILTRATION RATE 83.2 (>32); POTASSIUM SERUM 4.2 MMOL/L (3.5-5.1); SODIUM LEVEL 142.0 MMOL/L (136-145)
[2025-07-01] VITALS (33 sets, daily range): BP systolic 97–125; BP diastolic 53–77; TEMP 97–99.1; O2SAT 86–99
[2025-07-01 05:46] LABS: PLATELET COUNT, AUTOMATED 264 10^3/uL (150-450)
[2025-07-01 06:23] LABS: C REACTIVE PROTEIN QUANTITATIV 2.28 MG/DL (<1.0)
[2025-07-01 06:37] LABS: ALT/SGPT 14.0 U/L (7.0-40); AST/SGOT 12.0 U/L (<34); CALCIUM LEVEL 8.3 MG/DL (8.3-10.6); CARBON DIOXIDE LEVEL 32.0 MMOL/L (20-31); CHLORIDE LEVEL 101.0 MMOL/L (98-107); CREATININE FOR GFR 0.7 MG/DL (0.55-1.30); GLOMERULAR FILTRATION RATE 82.6 (>32); POTASSIUM SERUM 4.2 MMOL/L (3.5-5.1); SODIUM LEVEL 141.0 MMOL/L (136-145)
[2025-07-02] VITALS (29 sets, daily range): BP systolic 94–119; BP diastolic 53–70; TEMP 97.2–98.1; O2SAT 90–100
[2025-07-02 05:24] LABS: PLATELET COUNT, AUTOMATED 242 10^3/uL (150-450)
[2025-07-02 05:43] LABS: ALT/SGPT 13.0 U/L (7.0-40); AST/SGOT 12.0 U/L (<34); CALCIUM LEVEL 8.1 MG/DL (8.3-10.6); CARBON DIOXIDE LEVEL 30.0 MMOL/L (20-31); CHLORIDE LEVEL 105.0 MMOL/L (98-107); CREATININE FOR GFR 0.66 MG/DL (0.55-1.30); GLOMERULAR FILTRATION RATE 83.8 (>32); POTASSIUM SERUM 4.2 MMOL/L (3.5-5.1); SODIUM LEVEL 142.0 MMOL/L (136-145)
[2025-07-02] MEDS: AMIODARONE HCL 150 MG in IV 1 EA IV SCH (14:32)
[2025-07-02] MEDS: AMIODARONE HCL 360 MG in IV 1 EA IV SCH ×2 (15:13→20:55)
[2025-07-03] VITALS (32 sets, daily range): BP systolic 95–114; BP diastolic 52–71; TEMP 97.4–98.5; O2SAT 86–99
[2025-07-03 05:45] LABS: PLATELET COUNT, AUTOMATED 212 10^3/uL (150-450)
[2025-07-03 06:04] LABS: ALT/SGPT 12 U/L (7.0-40); AST/SGOT 11 U/L (<34); CALCIUM LEVEL 8.0 MG/DL (8.3-10.6); CARBON DIOXIDE LEVEL 31 MMOL/L (20-31); CHLORIDE LEVEL 103 MMOL/L (98-107); CREATININE FOR GFR 0.66 MG/DL (0.55-1.30); GLOMERULAR FILTRATION RATE 83.8 (>32); POTASSIUM SERUM 3.7 MMOL/L (3.5-5.1); SODIUM LEVEL 140 MMOL/L (136-145)
[2025-07-03] MEDS: ALBUTEROL SULFATE 2.5 MG/0.5 ML INH CONCENTRATE NEB SOLN NEB PRN (09:11)
[2025-07-03 10:17] LABS: DIGOXIN LEVEL < 0.1 NG/ML (0.8-2.0)
[2025-07-03] MEDS: DIGOXIN 0.125 MG TAB PO SCH (10:30)
[2025-07-03 15:36] LABS: CPK CREATINE PHOSPHOKINASE < 15 U/L (34-145)
[2025-07-03] MEDS: LEVALBUTEROL 1.25 MG 0.5ML CONCENTRATE NEB INH SCH (16:18)
[2025-07-03] MEDS: SODIUM CHLORIDE HYPERTONIC 3% 4ML NEB SOL INH SCH (16:18)
[2025-07-04] VITALS (45 sets, daily range): BP systolic 100–109; BP diastolic 52–69; TEMP 97–97.8; O2SAT 81–99
[2025-07-04 05:50] LABS: PLATELET COUNT, AUTOMATED 223 10^3/uL (150-450)
[2025-07-04 06:16] LABS: DIGOXIN LEVEL 0.4 NG/ML (0.8-2.0)
[2025-07-04 06:17] LABS: ALT/SGPT 11.0 U/L (7.0-40); AST/SGOT 11.0 U/L (<34); CALCIUM LEVEL 8.7 MG/DL (8.3-10.6); CARBON DIOXIDE LEVEL 30.0 MMOL/L (20-31); CHLORIDE LEVEL 101.0 MMOL/L (98-107); CREATININE FOR GFR 0.56 MG/DL (0.55-1.30); GLOMERULAR FILTRATION RATE 87.2 (>32); POTASSIUM SERUM 4.2 MMOL/L (3.5-5.1); SODIUM LEVEL 141.0 MMOL/L (136-145)
[2025-07-04] MEDS: SENNA 8.6 MG TAB PO SCH (11:55)
[2025-07-04] MEDS: DOCUSATE SODIUM 100 MG CAPSULE PO SCH (11:55)
[2025-07-04] MEDS: MORPHINE 10 MG/0.5 ML ORAL CONCENTRATE SOLUTION U/D SL ONE (12:40)
[2025-07-05] VITALS (41 sets, daily range): BP systolic 114–139; BP diastolic 55–69; TEMP 97–98; O2SAT 85–100
[2025-07-05 05:52] LABS: PLATELET COUNT, AUTOMATED 209 10^3/uL (150-450)
[2025-07-05 06:30] LABS: ALT/SGPT 12.0 U/L (7.0-40); AST/SGOT 8.0 U/L (<34); CALCIUM LEVEL 8.6 MG/DL (8.3-10.6); CARBON DIOXIDE LEVEL 30.0 MMOL/L (20-31); CHLORIDE LEVEL 103.0 MMOL/L (98-107); CREATININE FOR GFR 0.59 MG/DL (0.55-1.30); GLOMERULAR FILTRATION RATE 86.1 (>32); POTASSIUM SERUM 4.1 MMOL/L (3.5-5.1); SODIUM LEVEL 142.0 MMOL/L (136-145)
[2025-07-06] VITALS (59 sets, daily range): BP systolic 115–145; BP diastolic 55–67; TEMP 96.9–97.1; O2SAT 77–98
[2025-07-06 06:18] LABS: PLATELET COUNT, AUTOMATED 217 10^3/uL (150-450)
[2025-07-06 06:38] LABS: ALT/SGPT 11 U/L (7.0-40); AST/SGOT < 8 U/L (<34); CALCIUM LEVEL 8.6 MG/DL (8.3-10.6); CARBON DIOXIDE LEVEL 30 MMOL/L (20-31); CHLORIDE LEVEL 103 MMOL/L (98-107); CREATININE FOR GFR 0.59 MG/DL (0.55-1.30); GLOMERULAR FILTRATION RATE 86.1 (>32); POTASSIUM SERUM 3.7 MMOL/L (3.5-5.1); SODIUM LEVEL 144 MMOL/L (136-145)
[2025-07-06 12:33] LABS: ANTI CENTROMERE ANTIBODY <1.0 NEG AI (<1.0 NEG); ANTI SCLERODERMA ANTIBODIES <1.0 NEG AI (<1.0 NEG); SSA SJOGRENS A <1.0 NEG AI (<1.0 NEG); SSB SJOGRENS B <1.0 NEG AI (<1.0 NEG)
[2025-07-06] MEDS: PANTOPRAZOLE 40MG TAB PO SCH (18:00)
[2025-07-06 19:12] LABS: ALDOLASE 5.6 U/L (< OR = 8.1)
[2025-07-07] VITALS (36 sets, daily range): BP systolic 119–143; BP diastolic 56–70; TEMP 96.3–97.8; O2SAT 80–99
[2025-07-07 05:35] LABS: PLATELET COUNT, AUTOMATED 229 10^3/uL (150-450)
[2025-07-07 05:51] LABS: ALT/SGPT 13 U/L (7.0-40); AST/SGOT < 8 U/L (<34); CALCIUM LEVEL 8.6 MG/DL (8.3-10.6); CARBON DIOXIDE LEVEL 34 MMOL/L (20-31); CHLORIDE LEVEL 101 MMOL/L (98-107); CREATININE FOR GFR 0.53 MG/DL (0.55-1.30); GLOMERULAR FILTRATION RATE 88.4 (>32); POTASSIUM SERUM 3.9 MMOL/L (3.5-5.1); SODIUM LEVEL 142 MMOL/L (136-145)
[2025-07-07 10:51] LABS: ANTI DS-DNA AB Negative (Negative)
[2025-07-07 12:08] LABS: Antimyeloperxidase(MPO) Abs < 1.0 AI (<1.0)
[2025-07-08] VITALS (36 sets, daily range): BP systolic 107–166; BP diastolic 51–82; TEMP 97–97.5; O2SAT 81–100
[2025-07-08 05:33] LABS: PLATELET COUNT, AUTOMATED 230 10^3/uL (150-450)
[2025-07-08 05:56] LABS: ALT/SGPT 11 U/L (7.0-40); AST/SGOT < 8 U/L (<34); CALCIUM LEVEL 8.4 MG/DL (8.3-10.6); CARBON DIOXIDE LEVEL 33 MMOL/L (20-31); CHLORIDE LEVEL 101 MMOL/L (98-107); CREATININE FOR GFR 0.52 MG/DL (0.55-1.30); GLOMERULAR FILTRATION RATE 88.8 (>32); POTASSIUM SERUM 3.9 MMOL/L (3.5-5.1); SODIUM LEVEL 142 MMOL/L (136-145)
[2025-07-08 16:38] LABS: ANCA SCREEN REFLEX ATYP P-ANCA POS (Negative)
[2025-07-08 20:14] LABS: ANTI-GLOMERULAR BASEMENT MEMB < 1.0 AI (<1.0)
[2025-07-09] VITALS (31 sets, daily range): BP systolic 108–151; BP diastolic 56–91; TEMP 97.2–97.7; O2SAT 85–98
[2025-07-09 05:58] LABS: PLATELET COUNT, AUTOMATED 236 10^3/uL (150-450)
[2025-07-09 06:26] LABS: ALT/SGPT 11 U/L (7.0-40); AST/SGOT < 8 U/L (<34); CALCIUM LEVEL 8.4 MG/DL (8.3-10.6); CARBON DIOXIDE LEVEL 36 MMOL/L (20-31); CHLORIDE LEVEL 101 MMOL/L (98-107); CREATININE FOR GFR 0.50 MG/DL (0.55-1.30); GLOMERULAR FILTRATION RATE 89.6 (>32); POTASSIUM SERUM 4.1 MMOL/L (3.5-5.1); SODIUM LEVEL 142 MMOL/L (136-145)
[2025-07-10] VITALS (26 sets, daily range): BP systolic 108–146; BP diastolic 53–75; TEMP 97.1–97.4; O2SAT 84–98
[2025-07-10] MEDS: predniSONE 20 MG TAB PO SCH (08:37)
[2025-07-11] VITALS (12 sets, daily range): BP systolic 115–130; BP diastolic 54–60; TEMP 97.1–97.8; O2SAT 87–99
[2025-07-11] MEDS ORDERED: LEVALBUTEROL 1.25 MG 0.5ML CONCENTRATE NEB INH PRN (20:10)
[2025-07-11] MEDS: ADVAIR HFA 230/21 MCG INHALER INH SCH (20:52)
[2025-07-12] VITALS (9 sets, daily range): BP systolic 114–136; BP diastolic 56–65; TEMP 96.3–98.1; O2SAT 66–97
[2025-07-12 05:52] LABS: BASO # 0.0 10^3/uL (0.0-0.2); BASO % 0.2 % (0.0-1.0); EOS # 0.0 10^3/uL (0.0-0.5); EOS % 0.0 % (0.0-3.0); LYMPH # 0.2 10^3/uL (1.5-5.0); LYMPH % 1.8 % (24.0-44.0); MONO # 0.2 10^3/uL (0.0-0.8); MONO % 2.0 % (2.0-8.0); NEUTROPHILS # 9.8 10^3/uL (1.5-8.5); NEUTROPHILS % 94.5 % (36.0-66.0); PLATELET COUNT, AUTOMATED 264 10^3/uL (150-450)
[2025-07-12 06:15] LABS: CALCIUM LEVEL 8.2 MG/DL (8.3-10.6); CARBON DIOXIDE LEVEL 38.0 MMOL/L (20-31); CHLORIDE LEVEL 99.0 MMOL/L (98-107); CREATININE FOR GFR 0.56 MG/DL (0.55-1.30); GLOMERULAR FILTRATION RATE 87.2 (>32); POTASSIUM SERUM 4.1 MMOL/L (3.5-5.1); SODIUM LEVEL 142.0 MMOL/L (136-145)
[2025-07-12] MEDS: ALBUTEROL SULFATE 2.5 MG/0.5 ML INH CONCENTRATE NEB SOLN NEB SCH (07:15)
[2025-07-12] MEDS: SODIUM CHLORIDE HYPERTONIC 3% 4ML NEB SOL INH SCH (07:15)
[2025-07-12 11:38] LABS: ASPERGILLUS FUMIGATUS AB NEGATIVE (NEGATIVE); MICROPOLYSPORA FAENI AB NEGATIVE (NEGATIVE); PIGEON SERUM AB NEGATIVE (NEGATIVE); S VIRIDIS NEGATIVE (NEGATIVE); T CANDIDUS NEGATIVE (NEGATIVE); THERMOACTINOMYCES VULGARIS NEGATIVE (NEGATIVE)
[2025-07-13 04:31] VITALS: BP 139/69; TEMP 97.5; O2SAT 94
[2025-07-13 12:25] VITALS: BP 112/69; TEMP 98.4; O2SAT 92
[2025-07-13 16:42] VITALS: O2SAT 91
[2025-07-13 20:00] VITALS: BP 113/68; TEMP 98.1; O2SAT 88; O2SAT 93
[2025-07-14 00:39] VITALS: O2SAT 90
[2025-07-14 04:00] VITALS: BP 130/64; TEMP 97.5; O2SAT 95
[2025-07-14 12:00] VITALS: BP 126/63; TEMP 97.9; O2SAT 93
[2025-07-14] MEDS ORDERED: MORPHINE SULFATE ORAL SOLN 10 MG/5 ML PO PRN (13:10)
[2025-07-14] MEDS: MORPHINE SULFATE ORAL SOLN 10 MG/5 ML PO ONE (13:20)
[2025-07-14 18:38] VITALS: O2SAT 91
[2025-07-14 20:21] VITALS: BP 114/50; TEMP 98.1; O2SAT 89
[2025-07-15] VITALS (11 sets, daily range): BP systolic 112–133; BP diastolic 50–63; TEMP 97.5–98.2; O2SAT 84–94
[2025-07-15 08:42] LABS: BASO # 0.0 10^3/uL (0.0-0.2); BASO % 0.2 % (0.0-1.0); EOS # 0.0 10^3/uL (0.0-0.5); EOS % 0.0 % (0.0-3.0); LYMPH # 0.4 10^3/uL (1.5-5.0); LYMPH % 2.9 % (24.0-44.0); MONO # 0.3 10^3/uL (0.0-0.8); MONO % 2.5 % (2.0-8.0); NEUTROPHILS # 11.3 10^3/uL (1.5-8.5); NEUTROPHILS % 92.4 % (36.0-66.0); PLATELET COUNT, AUTOMATED 267 10^3/uL (150-450)
[2025-07-15 09:09] LABS: CALCIUM LEVEL 8.5 MG/DL (8.3-10.6); CARBON DIOXIDE LEVEL 38.0 MMOL/L (20-31); CHLORIDE LEVEL 97.0 MMOL/L (98-107); CREATININE FOR GFR 0.54 MG/DL (0.55-1.30); GLOMERULAR FILTRATION RATE 88.0 (>32); POTASSIUM SERUM 3.6 MMOL/L (3.5-5.1); SODIUM LEVEL 141.0 MMOL/L (136-145)
[2025-07-16 01:27] VITALS: O2SAT 95
[2025-07-16 01:28] VITALS: O2SAT 92
[2025-07-16 05:21] VITALS: BP 137/56; TEMP 97.7; O2SAT 95
[2025-07-16 08:42] VITALS: BP 136/57
[2025-07-16] MEDS ORDERED: METO1TAB32 PO (12:22)
[2025-07-16] MEDS ORDERED: SODI3NEB3 INH (12:22)
[2025-07-16] MEDS ORDERED: COLA100C5 PO (12:22)
[2025-07-16] MEDS ORDERED: DIGO0.123 PO (12:22)
[2025-07-16] MEDS ORDERED: ELIQ5TAB PO (12:22)
[2025-07-16] MEDS ORDERED: FURO40TA2 PO (12:22)
[2025-07-16] MEDS ORDERED: LEVA1.25 INH (12:22)
[2025-07-16] MEDS ORDERED: Sodium Chloride Nasal Spray (12:22)
[2025-07-16] MEDS ORDERED: PANT40TA29 PO (12:22)
[2025-07-16] MEDS ORDERED: PRED20TA PO (12:22)
[2025-07-16] MEDS ORDERED: SENN18TA PO (12:22)
[2025-07-16] MEDS: predniSONE 20 MG TAB PO ONE (12:27)
[2025-07-17] MEDS ORDERED: predniSONE 20 MG TAB PO SCH (09:00)
== END 2025-07-16 13:25 | DRG 871 ==
LOC: M ED 22:56 → M ED INP 06-16 01:50 → M PCU 06-16 03:48 → M MSPAV 07-12 17:16
PROVIDERS: ADMIT Student in an Organized Health Care Education/Training Program; ATTEND Internal Medicine Nephrology
PROC: B246ZZZ Ultrasonography of Right and Left Heart (ICD-10-PCS; principal; 2025-06-18)
DX: A41.9 Sepsis, unspecified organism (principal); I26.99 Other pulmonary embolism without acute cor pulmonale; J96.21 Acute and chronic respiratory failure with hypoxia; J18.9 Pneumonia, unspecified organism; J44.1 Chronic obstructive pulmonary disease with (acute) exacerbation; I50.32 Chronic diastolic (congestive) heart failure; J44.0 Chronic obstructive pulmonary disease with (acute) lower respiratory infection; J47.0 Bronchiectasis with acute lower respiratory infection; B02.23 Postherpetic polyneuropathy; C90.31 Solitary plasmacytoma in remission; G40.909 Epilepsy, unspecified, not intractable, without status epilepticus; I11.0 Hypertensive heart disease with heart failure; E03.9 Hypothyroidism, unspecified; J84.10 Pulmonary fibrosis, unspecified; K21.9 Gastro-esophageal reflux disease without esophagitis; R41.81 Age-related cognitive decline; Z66 Do not resuscitate; J30.9 Allergic rhinitis, unspecified; G89.29 Other chronic pain; I27.24 Chronic thromboembolic pulmonary hypertension; F03.90 Unspecified dementia, unspecified severity, without behavioral disturbance, psychotic disturbance, mood disturbance, and anxiety; I48.91 Unspecified atrial fibrillation; F32.A Depression, unspecified; F41.9 Anxiety disorder, unspecified; Z87.891 Personal history of nicotine dependence; Z79.890 Hormone replacement therapy; Z96.641 Presence of right artificial hip joint; Z79.899 Other long term (current) drug therapy; Z88.0 Allergy status to penicillin; Z88.2 Allergy status to sulfonamides; Z88.8 Allergy status to other drugs, medicaments and biological substances; Z91.018 Allergy to other foods; Z99.81 Dependence on supplemental oxygen; Z88.1 Allergy status to other antibiotic agents

== ENCOUNTER → 2025-06-16 | Outpatient (REF) | PROVIDERS: ATTEND Physician Assistant | DX: I50.9 Heart failure, unspecified (principal); Z53.8 Procedure and treatment not carried out for other reasons ==

== ENCOUNTER → 2025-06-18 | Outpatient (REF) | payer MEDICARE, MEDICAID ==
[~2025-06-18] MED LIST changes: +CEFD300CAP PO; +ELIQ5TAB PO; +RISATAB3 PO
== END ==
PROVIDERS: ATTEND Specialist
DX: C90 Multiple myeloma and malignant plasma cell neoplasms (principal)

== ENCOUNTER → 2025-06-21 | Outpatient (REF) | PROVIDERS: ATTEND Physician Assistant | DX: I50.9 Heart failure, unspecified (principal) ==

== ENCOUNTER → 2025-06-23 | Outpatient (REF) | PROVIDERS: ATTEND Physician Assistant | DX: I50.9 Heart failure, unspecified (principal) ==